=== PATIENT | male | born 1970 | race Caucasian/White ===

== ENCOUNTER 2024-06-08 08:24 | Outpatient (CLI) | payer BC, SELFPAY ==
--- NOTE | 2024-06-08 08:30 | ECG_ITS ---
Test Date: 2024-06-08 08:51:00 Measurements Intervals Alpha Rate: 64 P: 23 NH: 194 QRS: 15 QRSD: 98 T: 36 QT: 381 QTc: 394 Interpretive Statements SINUS RHYTHM WARNING: DATA QUALITY MAY AFFECT INTERPRETATION No previous ECG available for comparison Electronically Signed On 06-09-2024 13:51:24 ECCLESIASTICAL WORKER by Estefania Robins
[2024-06-08 09:45] LABS: Prothrombin Time 13.8 Seconds (11.1-14.7)
[2024-06-08 09:46] LABS: Partial Thromboplastin Time 27.6 Seconds (22.3-36.8)
--- OUTSIDE RECORDS SUMMARY | 2024-06-09 21:52 | XMS_ITS | Clinical Summary ---
Author Organization [facility] Address [address] [facility] [place] [address] Care Team Providers Care Residential Framing Carpenter Name Role Phone Aditi Stark METAL PUNCH PRESS OPERATOR-PATTERNMAKER APPRENTICE WOOD Primary Care Provider Source Comments [facility],non-owned Affiliates and Associated Physician Practices is amultiple site organization consisting of ambulatory clinics and hospital sitesin [place], [place], [place] and [place]. This disclosure is being madepursuant to the Care Everywhere program and may not contain all information available regarding this patient. Last updated 18.[facility] Allergies Active Allergy Reactions Criticality Noted Date Comments Aspirin 03/20/2011 Patient stated that he got nose bleeds from the asa. Penicillin G Proc & Benzathine 03/20/2011 Patient passed out from the shot Medications * Be aware that medications may not be up to date on this document. Alwaysverify current medications with the patient. Medication Sig Dispensed Refills Start Date End Date Status PROAIR HFA 108 (90 Base) MCG/ACT inhaler Inhale 2 (two) puffs by mouth as needed for Shortness of Breath or Wheezing 04/19/2019 Active CPAP Use as directed 14cm H20 Active lisinopril (PRINIVIL; ZESTRIL) 40 MG tablet Take 1 (one) tablet by mouth once daily Active amLODIPine (Norvasc) 10 MG tablet Take 1 (one) tablet by mouth once daily Active tirzepatide (Zepbound) 15 MG/0.5ML injectionIndications :Class 2 severe obesity due to excess calories with serious comorbidity and body mass index (BMI) of 39.0 to 39.9 in adult (HCC),Metabolic dysfunction-associat ed steatohepatitis (MASH) Inject 15 (fifteen) mg subcutaneously every 7 days 6 mL 2 04/20/2024 Active psyllium (Metamucil) CAPS capsuleIndications:C onstipation, unspecified constipation type Take 1 (one) capsule by mouth 3 times daily 90 capsule 5 04/20/2024 10/18/19 Active Additional Information Patient not taking.Reported on 06/06/2024 carvedilol (Coreg) 12.5 MG tabletIndications:Be nign essential HTN Take 1 (one) tablet by mouth 2 times daily 60 tablet 5 04/20/2024 Active Airsupra 90-80 MCG/ACT AERO Inhale 2 puffs by mouth every 4 hours as needed 05/03/2024 Active ondansetron, disintegrating, (Zofran ODT) 4 MG tablet Take 1 (one) tablet by mouth every 8 hours as needed 05/31/2023 Active traMADol (Ultram) 50 MG tablet Take 1 (one) tablet by mouth every 6 hours as needed For pain. 05/06/2024 Active tretinoin (Retin-A) 0.1 % cream Apply to affected area once daily 01/27/2024 Active tamsulosin (Flomax) 0.4 MG capsule Take 1 (one) capsule by mouth once daily 05/03/2024 Active Active Problems Problem Noted Date Diagnosed Date Class 2 severe obesity with serious comorbidity and body mass index (BMI) of 39.0 to 39.9 in adult 12/26/2021 Metabolic syndrome 12/26/2021 GRAFF (nonalcoholic steatohepatitis) 03/23/2018 Overview (06/11/2023): 02/07/20 Fibroscan CAP 372, LSM 5.4 kPa 08/12/21 FIbroscan CAP 375, LSM 6.9 kPa 06/11/23 Fibroscan CAP 326, LSM 6.4 kPa Hereditary hemochromatosis 08/17/2017 Overview (08/13/2021): Compound heterozygote Resolved Problems Problem Noted Date Diagnosed Date Resolved Date Laceration of scalp without foreign body 03/20/2011 06/11/2023 Encounters Date Type Department Care Team Description 06/06/2024 9:00 AM HOTEL SERVER Office Visit [facility] - [address] [phone] Brooke Bernard APRN-CNP Metabolic dysfunction-associated steatohepatitis (MASH) (Primary Dx); Hereditary hemochromatosis (HCC) 06/06/2024 7:18 AM HOTEL SERVER - 06/06/2024 11:59 PM HOTEL SERVER Hospital Encounter [facility] [address] [place] [phone] Brooke Bernard APRN-CNP Discharge Disposition: Home or Self Care 06/06/2024 Travel 04/20/2024 2:30 PM HOTEL SERVER Office Visit [facility] - [address] [phone] Heladio Luna III, MD Class 2 severe obesity with serious comorbidity and body mass index (BMI) of 39.0 to 39.9 in adult, unspecified obesity type (HCC) (Primary Dx); Metabolic syndrome; Class 2 severe obesity due to excess calories with serious comorbidity and body mass index (BMI) of 39.0 to 39.9 in adult (HCC); Metabolic dysfunction-associated steatohepatitis (MASH); Benign essential HTN; Alcohol use; Constipation, unspecified constipation type 04/20/2024 Travel 04/12/2024 Telephone [facility] [address] [phone] Jacob Yao, emr specialist Issue 04/11/2024 Refill [facility] [address] [phone] Heladio Luna III, MD MEDICATION REFILL from Last 3 Months Immunizations Name Administration Dates Next Due INFLUENZA VACCINE 03/23/2001 INFLUENZA VACCINE, QUADR. (F LUZONE; FLULAVAL; FLUARIX; AFLURIA QUADRIVALENT; 6MO+), 0.5 ML (IIV4) 04/03/2022,03/11/2021,04/19/2019 PNEUMOCOCCAL PPSV23 06/10/2012 TDAP (7yrs+) 10/30/2010 Family History Medical History Relation Name Comments None Known Brother Status: Alive Heart Failure Father Status: Deceas ed Diabetes Mother Status: Alive Liver Disease Mother Thyroid Disease Mother None Known Sister Status: Alive Relation Name Status Comments Brother Father Mother Sister Social History Tobacco Use Types Packs/Day Years Used Date Smoking Tobacco: Never Smokeless Tobacco: Never Tobacco Cessation:Counseling Given: Not Answered Alcohol Use Standard Drinks/Week Comments Yes 0 (1 standard drink = 0.6 oz pur e alcohol) special occasion PHQ-2 Answer Date Recorded Patient Health Questionnaire-2 Score 1 06/03/2023 Sex and Gender Information Value Date Recorded Sex Assigned at Not on file Gender Identity Not on file Sexual Orientation Not on file Last Filed Vital Signs Vital Sign Reading Time Taken Comments Blood Pressure 132/94 06/06/2024 8:45 AM HOTEL SERVER Pulse 73 06/06/2024 8:45 AM HOTEL SERVER Temperature 36.6 ??C (97.8 ??F) 06/06/2024 8:45 AM CS T Respiratory Rate 18 06/11/2023 9:48 AM HOTEL SERVER Oxygen Saturation 98% 06/06/2024 8:45 AM HOTEL SERVER Inhaled Oxygen Concentration - - Weight 124.2 kg (273 lb 12.8 oz) 06/06/2024 8:45 AM HOTEL SERVER Height 185.4 cm (6' 1 ) 06/06/2024 8:45 AM HOTEL SERVER Body Mass Index 36.12 06/06/2024 8:45 AM HOTEL SERVER Plan of Treatment Upcoming Encounters Date Type Department Care Team (Late st Contact Info) Description 10/26/2024 1:30 PM CDT Office Visit [facility] - [place] [address] [facility], [place] [phone] Irene Barron PA-C [address] [facility] DEPT [place] [phone] 04/26/2025 1:30 PM HOTEL SERVER Office Visit [facility] - [place] [address] [place] [address], [place] [phone] Heladio Luna III, MD [address] [place] [address] [address] [place] [phone] 06/05/2025 8:30 AM HOTEL SERVER Procedure visit [facility] - [place] [address] [place] [phone] 06/05/2025 9:00 AM HOTEL SERVER Office Visit [facility] - [place] [address] [place] [address], [place] [phone] Brooke Bernard, METAL PUNCH PRESS OPERATOR-PATTERNMAKER APPRENTICE WOOD [address] [place] [address] [address] DIV OF GASTROENTEROLOGY [place], [place] [phone] Health Maintenance Due Date Last Done Comments COLOGUARD (AGES 45-75) - COLON CA SCREENING 1968 COLON MONITORING 1968 COLONOSCOPY - COLON CA SCREENING 1968 CT COLONOGRAPHY - COLON CA SCREENING 1968 Colorectal Cancer Screening 1968 FIT - COLON CA SCREENING 1968 FLEX SIG - COLON CA SCREENING 1968 HIV SCREENING 1983 HEPATITIS B VACCINE (1 of 3 - 19+ 3-dose series) 1987 PNEUMOCOCCAL VACCINE 50+ (2 of 2 - PCV) 2018 06/10/2012 ZOSTER VACCINE (1 of 2) 2018 DTAP/TDAP/TD VACCINES (2 - Td or Tdap) 10/30/2020 10/30/2010 COVID-19 VACCINE ( season) 2024 03/22/2021, 06/12/2020, 05/15/2020 INFLUENZA VACCINE (#1) 2024 2, 03/11/2021, 04/19/2019, Additional history exists DEPRESSION SCREENING 05/18/2024 06/04/2023, 04/01/2023, 12/26/2021 SCREENING FOR DIABETES 11/12/2026 4, 11/13/2023, 06/18/2023, Additional history exists LIPID TESTING 11/12/2028 11/13/2023, 12/28/2021 HEPATITIS C SCREENING Completed 07/22/2016 HIB VACCINE Aged Out No longer eligi ble based on patient's age to complete this topic HPV VACCINE Aged Out No longer eligi ble based on patient's age to complete this topic MENINGOCOCCAL (Group B) VACCINE Aged Out No longer eligible based on patient's age to complete this topic MENINGOCOCCAL VACCINE Aged Out No ximena ivette eligible based on patient's age to complete this topic Goals Goal Patient Goal Type Associated Problems Recent Progress Patient-Stated? Author Medication Management General On track( 024 2:03 PM HOTEL SERVER) Jude Villegas, RN Note: Expected end date: Interventions: Take all medications as prescribed Let your doctor know right away about any changes in your medications Make sure to request a refill of your medication at least one week prior to your last dose Procedures Procedure Name Priority Date/Time Associated Diagnosis Comments US ABDOMEN LIMITED Routine 06/06/2024 8: 10 AM HOTEL SERVER GRAFF (nonalcoholic steatohepatitis) COMPREHENSIVE METABOLIC PANEL Routine 11/13/2023 7:25 AM CDT Obesity, unspecified classification, unspecified obesity type, unspecified whether serious comorbidity present LIPID PROFILE Routine 11/13/2023 7:25 AM CDT Obesity, unspecified classification, unspecified obesity type, unspecified whether serious comorbidity present HEPATITIS C ANTIBODY Routine 07/22/2016 2:45 PM HOTEL SERVER from Last 3 Months or Most Recently Relevant to Health Maintenance Results * US ABDOMEN LIMITED (06/06/2024 8:10 AM HOTEL SERVER) Anatomical Region Laterality Modality Abdomen Ultrasound 06/06/2024 8:20 AM HOTEL SERVER Impressions 06/06/2024 9:31 AM HOTEL SERVER IMPRESSION: 1.Diffuse hepatic steatosis. No notable surface nodularity to suggest cirrhosis. 2.A small hypoechoic area is redemonstrated adjacent to gallbladder, mildly increased in size up to 1.2 cm, this may represent focal fatty sparing given its location and appearance. Multiphase liver CT or MRI can be utilized for further evaluation. 3.No evidence of cholelithiasis or acute cholecystitis. 4.Mild interval dilation of the renal pelvis and some calyces likely representing mild hydronephrosis, distal obstruction is to be excluded. A CT scan of the abdomen can be helpful for further evaluation. > Dictated by Bunny Olmos MD (residential advisor). I, Peg Goldman MD have personally reviewed and interpreted this examination/study. > Interpreting Provider: Peg Goldman MD on 06/06/2024 9:31 AM Narrative 06/06/2024 9:31 AM HOTEL SERVER PROCEDURE: ??US ABDOMEN LIMITED DATE/TIME OF EXAM: ??06/06/2024 7:18 AM CLINICAL INFORMATION: None relevant/not provided if blank. Indication: K75.81: GRAFF (nonalcoholic steatohepatitis) Additional History: COMPARISON: Abdominal ultrasound 06/11/2023 FINDINGS: Limited visualization of some portions of hepatic parenchyma due to shadowing within exam limitations: The liver is increased in echogenicity, consistent with diffuse hepatic steatosis. There is smooth liver surface contour. No suspicious hepatic observations. Redemonstrated a cyst within the left hepatic lobe up to 1.8 cm. A small hypoechoic area approximately 1.2 cm is redemonstrated adjacent to the gallbladder, favored to represent fatty sparing. Color Doppler evaluation demonstrates patency of the hepatic and portal veins. No gallstones or pericholecystic fluid is seen. The gallbladder wall is normal in thickness, measuring 1 mm. Sonographic Stock's sign is negative. The common bile duct is nondilated, measuring 5 mm. No intrahepatic biliary dilatation is seen. The right kidney measures 13.9 x 6.2 x 5.3 cm. Redemonstrated a few right renal cysts up to 1.3 cm. Interval mild dilation of the renal pelvis and some calyces representing hydronephrosis, distal obstruction is to be excluded. The spleen is enlarged and measures 13.9 cm in length. The pancreas is obscured by overlying bowel gas. No ascites is present. Procedure Note Peg Goldman MD - 06/06/2024 PROCEDURE: US ABDOMEN LIMITED DATE/TIME OF EXAM: 06/06/2024 7:18 AM CLINICAL INFORMATION: None relevant/not provided if blank. Indication: K75.81: GRAFF (nonalcoholic steatohepatitis) Additional History: COMPARISON: Abdominal ultrasound 06/11/2023 FINDINGS: Limited visualization of some portions of hepatic parenchyma due to shadowing within exam limitations: The liver is increased in echogenicity, consistent with diffuse hepatic steatosis. There is smooth liver surface contour. No suspicious hepatic observations. Redemonstrated a cyst within the left hepatic lobe up to 1.8 cm. A small hypoechoic area approximately 1.2 cm is redemonstrated adjacent to the gallbladder, favored to represent fatty sparing. Color Dopplerevaluation demonstrates patency of the hepatic and portal veins. No gallstones or pericholecystic fluid is seen. The gallbladder wall is normal in thickness, measuring 1 mm. Sonographic Stock's sign isnegative. The common bile duct is nondilated, measuring 5 mm. No intrahepaticbiliary dilatation is seen. The right kidney measures 13.9 x 6.2 x 5.3 cm. Redemonstrated a fewright renal cysts up to 1.3 cm. Interval mild dilation of the renal pelvis and some calyces representing hydronephrosis, distal obstruction is to be excluded. The spleen is enlarged and measures 13.9 cm in length. The pancreas is obscured by overlying bowel gas. No ascites is present. IMPRESSION: 1.Diffuse hepatic steatosis. No notable surface nodularity to suggest cirrhosis. 2.A small hypoechoic area is redemonstrated adjacent to gallbladder,mildly increased in size up to 1.2 cm, this may represent focal fatty sparing given its location and appearance. Multiphase liver CT or MRI can be utilized for further evaluation. 3.No evidence of cholelithiasis or acute cholecystitis. 4.Mild interval dilation of the renal pelvis and some calyces likely representing mild hydronephrosis, distal obstruction is to be excluded.A CT scan of the abdomen can be helpful for further evaluation. > Dictated by Bunny Olmos MD (residential advisor). I, Peg Goldman MD have personally reviewed and interpreted this examination/study. > Interpreting Provider: Peg Goldman MD on 59:31 AM Brooke Bernard METAL PUNCH PRESS OPERATOR-PATTERNMAKER APPRENTICE WOOD US ORDERABL ES * (ABNORMAL) COMPREHENSIVE METABOLIC PANEL (11/13/2023 7:25 AM CDT) Glucose 94 65 - 99 mg/dL [facility] Comment: ? Fasting reference interval BUN 12 7 - 25 mg/dL [facility] Creatinine 0.82 0.70 - 1.30 mg/dL [facility] eGFR by Cystatin C 104 > OR = 60 mL/min/1. 73m2 [facility] BUN/Creatinine Ratio SEE NOTE: - (calc) [facility] Comment: ?? Not Reported: BUN and Creatinine are within ?? reference range. ? Sodium 142 135 - 146 mmol/L [facility] Potassium 4.0 3.5 - 5.3 mmol/L [facility] Chloride 104 98 - 110 mmol/L [facility] CO2 32 20 - 32 mmol/L [facility] Calcium 9.1 8.6 - 10.3 mg/dL [facility] Protein Total 6.7 6.1 - 8.1 g/dL [facility] Albumin 4.3 3.6 - 5.1 g/dL [facility] Globulin Total 2.4 1.9 - 3.7 g/dL (calc) [facility] Albumin/Globulin Ratio 1.8 1.0 - 2.5 (calc) [facility] Bilirubin Total 1.0 0.2 - 1.2 mg/dL [facility] Alkaline Phosphatase 64 35 - 144 U/L [facility] AST 36(H) 10 - 35 U/L [facility] ALT 65(H) 9 - 46 U/L [facility] Comment: Test Performed at: [facility] [address] ??[id number] CHELE CANO MD Blood BLOOD SPECIMEN / Unknown 11/13/2023 7:25 AM CDT 11/13/2023 7:25 AM CDT Heladio Luna III, MD LAB - CHEMISTRY O RDERABLES [facility] [address] [place] [address] * (ABNORMAL) LIPID PROFILE (11/13/2023 7:25 AM CDT) Cholesterol 148 <200 mg/dL [facility] HDL Cholesterol 39(L) > OR = 40 mg/dL [facility] Triglycerides 153(H) <150 mg/dL [facility] LDL Calculated 84 mg/dL (calc) [facility] Comment: Reference range: <100 Desirable range <100 mg/dL for primary prevention; ?? <70 mg/dL for patients with CHD or diabetic patients with > or = 2 CHD risk factors. LDL-C is now calculated using the Humberto calculation, which is a validated novel method providing better accuracy than the Friedewald equation in the estimation of LDL-C. Sherman REA et al. VIRGIL. 2013;310(19): 5350-2235 (http://education.[employer]Heart Genetics/faq/UEV652) CHOL/HDLC RATIO 3.8 <5.0 (calc) [facility] Non HDL Cholesterol 109 <130 mg/dL (calc) [facility] Comment: For patients with diabetes plus 1 major ASCVD risk factor, treating to a non-HDL-C goal of <100 mg/dL (LDL-C of <70 mg/dL) is considered a therapeutic option. Test Performed at: [facility] [address] [place] [address] ??[phone] CHELE CANO MD Blood BLOOD SPECIMEN / Unknown 11/13/2023 7:25 AM CDT 11/13/2023 7:25 AM CDT Heladio Luna III, MD LAB - CHEMISTRY O RDERABLES [facility] [address] [place] [address] * HEPATITIS C ANTIBODY (07/22/2016 2:45 PM HOTEL SERVER) Pathologist [facility] Hepatitis C Antibody Non-react [facility] Comment: Hepatitis C Antibody screen indicates no serologic evidence of past or current infection with Hepatitis C Virus. Patients with unexplained liver disease who are immunocompromised or suspected of having acute Hepatitis C infection may benefit from Nucleic Acid Test (FABY) for Hepatitis C Viral RNA to confirm Hepatitis C status. Blood specimen (specimen) BLOOD SPECIMEN / Unknown 07/22/2016 2:45 PM HOTEL SERVER 07/22/2016 2:54 PM HOTEL SERVER Arik Lipscomb MD LAB - CHEMISTRY [facility] [place] Organization Address City/State/ZIP Co de Phone Number [address] [phone] from Last 3 Months or Most Recently Relevant to Health Maintenance Care Teams Residential Framing Carpenter Relationship Specialty Start Date End Date Aditi Stark, METAL PUNCH PRESS OPERATOR-PATTERNMAKER APPRENTICE WOOD [address] [facility], [address] [place] [address] PCP - General Nurse Practitioner 12/08/22
--- OUTSIDE RECORDS SUMMARY | 2024-06-09 21:53 | XMS_ITS | Encounter Summary ---
Author Organization [facility] Address [facility] [facility] [place] [address] Care Team Providers Care Boring And Filling Machine Operator Name Role Phone Aditi Stark PHYSICAL THERAPIST-COATER SLATE Primary Care Provider Reason for Visit * Reason Onset Date Comments MEDICATION REFILL 02/29/2024 Encounter Details Date Type Department Care Team (Late st Contact Info) Description 02/29/2024 Refill [facility] - [address], [place] [phone] Heladio Luna III, MD [address] [place] [phone] MEDICATION REFILL Social History Tobacco Use Types Packs/Day Years Used Date Smoking Tobacco: Never Smokeless Tobacco: Never Alcohol Use Standard Drinks/Week Comments Yes 0 (1 standard drink = 0.6 oz pur e alcohol) special occassion PHQ-2 Answer Date Recorded Patient Health Questionnaire-2 Score 1 06/03/2023 Sex and Gender Information Value Date Recorded Sex Assigned at Not on file Gender Identity Not on file Sexual Orientation Not on file documented as of this encounter Plan of Treatment Upcoming Encounters Date Type Department Care Team (Late st Contact Info) Description 10/26/2024 1:30 PM CDT Office Visit [facility] - [place] [address] [place] [phone] Irene Barron PA-C [address] [facility] DEPT [place] [phone] 04/26/2025 1:30 PM PROSTHETIC MAKEUP DESIGNER Office Visit [facility] - [address] [phone] Heladio Luna III, MD [address] [place] [address] [address] [place] [phone] 06/05/2025 8:30 AM PROSTHETIC MAKEUP DESIGNER Procedure visit [facility] - [address] [phone] 06/05/2025 9:00 AM PROSTHETIC MAKEUP DESIGNER Office Visit [facility] - [address] [phone] Brooke Bernard, PHYSICAL THERAPIST-COATER SLATE [address] [place] [address] [address] DIV OF GASTROENTEROLOGY [place], [place] [phone] documented as of this encounter Goals Goal Patient Goal Type Associated Problems Recent Progress Patient-Stated? Author Medication Management General On track( 024 2:03 PM PROSTHETIC MAKEUP DESIGNER) Jude Villegas, RN Note: Expected end date: Interventions: Take all medications as prescribed Let your doctor know right away about any changes in your medications Make sure to request a refill of your medication at least one week prior to your last dose documented as of this encounter Visit Diagnoses Not on filedocumented in this encounter Care Teams Boring And Filling Machine Operator Relationship Specialty Start Date End Date Aditi Stark, PHYSICAL THERAPIST-COATER SLATE [address] [facility], [address] [place] [address] PCP - General Nurse Practitioner 12/08/22 documented as of this encounter
--- OUTSIDE RECORDS SUMMARY | 2024-06-09 21:53 | XMS_ITS | Clinical Summary ---
Author Organization [facility] Address [address] [place] [address] [place] [address] Care Team Providers Care Geophysical Computer Name Role Phone Aditi Stark [facility] Primary Care Provider + Allergies Active Allergy Reactions Criticality Noted Date Comments Aspirin Other (see comment) 03/20/2011 Patient stated that he got nose bleeds from the asa. Penicillin G Unknown 03/20/2011 Patient passed out from the shot Medications CPAP MACHINE Active tirzepatide (ZEPBOUND) 15 MG/0.5ML injection Inject 15 mg into the skin every 7 days. 4 Active ondansetron (ZOFRAN) 4 MG tablet Take 1 tablet (4 mg total) by mouth every 8 (eight) hours as needed for Nausea. 20 tablet 4 Active psyllium 0.52 g capsule Take 1 capsule (520 mg total) by mouth. 4 10/18/19 25 Active tamsulosin (FLOMAX) 0.4 MG CapIndications:Re nal calculi Take 1 capsule (0.4 mg total) by mouth daily. 30 capsule 1 4 Active Albuterol-Budeson fauzia (AIRSUPRA) 90-80 MCG/ACT AerosolIndication s:Mild persistent asthma without complication (HHS/HCC) Inhale 2 puffs into the lungs every 4 (four) hours as needed. 32.1 g 1 4 Active amLODIPine (NORVASC) 10 MG tabletIndications :Essential hypertension Take 1 tablet (10 mg total) by mouth daily. 90 tablet 3 4 Active carvedilol (COREG) 12.5 MG tabletIndications :Essential hypertension Take 1 tablet (12.5 mg total) by mouth 2 (two) times daily. 60 tablet 3 4 Active lisinopril (PRINIVIL) 40 MG tabletIndications :Essential hypertension Take 1 tablet (40 mg total) by mouth daily. 90 tablet 3 4 Active traMADol (ULTRAM) 50 MG tabletIndications :Acute Pain < 7 Day Supply Take 1 tablet (50 mg total) by mouth every 6 (six) hours as needed for Pain. Indications: Acute Pain < 7 Day Supply 28 tablet 4 05/13/20 24 Active Problems Problem Noted Date Diagnosed Date SEVERO on CPAP 01/05/2019 GRAFF (nonalcoholic steatohepatitis) 03/23/2018 Hereditary hemochromatosis 08/17/2017 Fatty (change of) liver, not elsewhere classifie d 07/22/2016 Asthma (HHS/HCC) 01/23/2014 Overview (05/05/2018): has inhaler no symptoms Obesity (BMI 30.0-34.9) 01/23/2014 Overview (05/05/2018): needs to lose snoring hs oximetry Essential (primary) hypertension 01/23/2014 Resolved Problems Problem Noted Date Diagnosed Date Resolved Date Screen for colon cancer 05/01/202304/17 Screen for colon cancer 05/01/202306/18 Hemorrhoids 05/13/2017 05/05/2018 Encounters Date Type Department Care Team Description 06/06/2024 Scan [facility] INFO SRVCS Scanned, Doc Med Group 05/24/2024 Telephone [facility] [address] [phone] Aditi Stark, NUCLEAR TECHNICIAN-BC Results 05/23/2024 7:39 AM MOLDED GOODS INSPECTOR TRIMMER - 05/23/2024 11:59 PM [facility] Hospital Encounter [facility] [address] [address] Aditi Stark FNP-BC Discharge Disposition: Home or Self Care (Routine Discharge) 05/23/2024 Travel 05/05/2024 Scan HEALTH INFO SRVCS Scanned, Doc Med Group 05/05/[address] [phone] Aditi Stark FNP-BC Medication Request 05/03/2024 11:20 AM MOLDED GOODS INSPECTOR TRIMMER Office Visit [address] [phone] Aditi Stark FNP-BC Follow Up (ER) 05/03/[address] [phone] Aditi Stark FNP-BC Orders 05/03/2024 Travel 04/30/2024 9:16 AM MOLDED GOODS INSPECTOR TRIMMER - 04/30/2024 11:08 AM [facility] Emergency [facility] Emergency Room [address] [place] [address] Yuridia Marshall MD Flank Pain Discharge Disposition: Home or Self Care (Routine Discharge) 04/18/2024 7:40 AM MOLDED GOODS INSPECTOR TRIMMER Office Visit [address] [phone] Aditi Stark FNP-BC Physical (Annual ) 04/18/2024 Travel from Last 3 Months Immunizations Name Administration Dates Next Due Fluzone 6 Months+ Quad (0.5 mL Prefilled Syringe) 04/03/2022,03/11/2021,04/19/2019 Influenza Adult (Generic) 03/23/2001 MODERNA COVID-19 (12+) MRNA, LNP-S, PF, 100 MCG/ 0.5 ML DOSE 06/12/2020,05/15/2020 Pneumococcal (Pneumovax 23) 06/10/2012 Tdap (Generic) 10/30/2010 Family History Medical History Relation Comments Heart Disease Daughter nephrolithiasis Father Asthma Maternal Grandfather Cancer Maternal Grandfather Diabetes Mother Hypertension Mother None Sister 2 Relation Status Comments Brother Alive Daughter Alive Father Maternal Grandfather Mother Alive Sister 1 Alive Sister 2 Son Alive Social History Tobacco Use Types Packs/Day Years Used Date Smoking Tobacco: Never Smokeless Tobacco: Never Tobacco Cessation:Counseling Given: No Alcohol Use Standard Drinks/Week Comments Yes 3.3 (1 standard drink = 0.6 oz p ure alcohol) PHQ-2 Answer Date Recorded Patient Health Questionnaire-2 Score 0 05/03/2024 Sex and Gender Information Value Date Recorded Sex Assigned at Not on file Legal Sex Male 7:57 PM CDT Gender Identity Male 08/12/2021 1:26 PM CDT Sexual Orientation Straight 08/12/2021 1: 26 PM CDT Last Filed Vital Signs Vital Sign Reading Time Taken Comments Blood Pressure 129/83 05/03/2024 11:32 AM MOLDED GOODS INSPECTOR TRIMMER Pulse 67 05/03/2024 11:05 AM MOLDED GOODS INSPECTOR TRIMMER Temperature 36.3 ??C (97.4 ??F) 05/03/2024 1 1:05 AM MOLDED GOODS INSPECTOR TRIMMER Respiratory Rate 18 05/03/2024 11:0 5 AM MOLDED GOODS INSPECTOR TRIMMER Oxygen Saturation 97% 05/03/2024 11: 05 AM MOLDED GOODS INSPECTOR TRIMMER Inhaled Oxygen Concentration - - Weight 126.6 kg (279 lb 3.2 oz) 024 11:05 AM MOLDED GOODS INSPECTOR TRIMMER Height 180.3 cm (5' 11 ) 05/03/2024 11: 05 AM MOLDED GOODS INSPECTOR TRIMMER Body Mass Index 38.94 05/03/2024 11:05 AM MOLDED GOODS INSPECTOR TRIMMER Plan of Treatment Upcoming Encounters Date Type Department Care Team (Late st Contact Info) Description 10/20/2024 7:20 AM CDT Office Visit [facility] [address] [place] [phone] Aditi Stark, [facility] [address], [address] [place], [place] [id number] 05/03/2025 8:00 AM MOLDED GOODS INSPECTOR TRIMMER Appointment [facility] [address] [place] [address] Aditi Stark, [facility] [address] [facility] [address] [place], [place] [id number] Health Maintenance Due Date Last Done Comments Hepatitis B Vaccines (1 of 3 - 19+ 3-dose series) 1987 Pneumococcal Vaccine: Pediatrics (0 to 5 Years) and At-Risk Patients (6 to 64 Years) (2 of 2 - PCV) 06/10/2013 06/10/2012 Zoster Vaccines (1 of 2) 2018 DTaP, Tdap and Td Vaccines (2 - Td or Tdap) 10/30/2020 10/30/2010 COVID-19 Vaccine ( - season) 2024 03/22/2021, 06/12/2020, 05/15/2020 Influenza Adult (#1) 2024 04/03/2022, 03/11/2021, 04/19/2019, Additional history exists Annual Physical 04/20/2024 04/20/2023, 10/17, 05/05/2018 PHQ-2 (Physician [place]) 05/03/2025 05/03/2024 Colorectal Cancer Screening Colonoscopy (10 Years) 07/03/2033 07/03/2023, 06/17/2018 Hepatitis C Completed 07/22/2016, 09/04/2009 Meningococcal Vaccine Aged Out No ximena ivette eligible based on patient's age to complete this topic RSV Immunizations Under 20 Months Aged Out No longer eligible based on patient's age to complete this topic Medical Devices Implanted Type Area Advertising Sales Manager Device Identifier Shelf Expiration Date Model / Serial / Lot Mesh Mesh Right: Groin Procedures Procedure Name Priority Date/Time Associated Diagnosis Comments MRI ABD WWO CON Routine 05/23/2024 8:54 AM MOLDED GOODS INSPECTOR TRIMMER Renal lesion XR ABD KUB Routine 05/23/2024 7:58 AM MOLDED GOODS INSPECTOR TRIMMER Calculus of ureter HC URINALYSIS AUTO W/O MICRO STAT 04/30/2024 10:10 AM MOLDED GOODS INSPECTOR TRIMMER CT ABD+PEL KIDNEY STONE STAT 04/30/2024 10:09 AM MOLDED GOODS INSPECTOR TRIMMER CBC W/DIFF AUTOMATED STAT 04/30/2024 9:41 AM MOLDED GOODS INSPECTOR TRIMMER LIPASE STAT 04/30/2024 9:32 AM MOLDED GOODS INSPECTOR TRIMMER COMPREHENSIVE METABOLIC PANEL STAT 04/30/2024 9:32 AM MOLDED GOODS INSPECTOR TRIMMER COLONOSCOPY/EGD GENERIC (SCAN ORDER) Routine 06/17/2018 HEPATITIS C ANTIBODY Routine 09/04/2009 6:29 AM CDT from Last 3 Months or Most Recently Relevant to Health Maintenance Results * MRI ABD WWO CON (05/23/2024 8:54 AM MOLDED GOODS INSPECTOR TRIMMER) Anatomical Region Laterality Modality Abdomen Magnetic Resonan ce 05/23/2024 2:30 PM MOLDED GOODS INSPECTOR TRIMMER Impressions 05/23/2024 2:49 PM MOLDED GOODS INSPECTOR TRIMMER IMPRESSION:===== 1. Small bilateral renal cysts without suspicious features. No follow-up required. 2. Persistent right hydronephrosis with obstructing calculus of the right proximal ureter. 3. Mild hepatomegaly with diffuse fatty steatosis. 4. Multiple hepatic cysts. 5. Small hiatal hernia. 6. Diverticulosis of the colon. Referred By: ADIIT STARK Interpreted By: Nahun Buck MD, 05/23/2024 2:30 PM Narrative 05/23/2024 2:49 PM MOLDED GOODS INSPECTOR TRIMMER [address] [address] EXAMINATION: MRI abdomen with and without contrast EXAM DATE/TIME: 05/23/2024 7:58 AM REASON FOR EXAM: ??Indeterminate density right renal lesion ?? COMPARISON: Prior CT 04/30/2024 TECHNIQUE: ??Multiplanar multisequence MRI of the abdomen with and without contrast, 20 mL Dotarem intravenously FINDINGS: Numerous bilateral renal lesions compatible with cysts. This includes multiple hyperdense/proteinaceous cysts. Most of these are very small, largest measures only 11 mm in the right kidney inferior pole. No suspicious features on this exam. No enhancing renal lesions. Persistent mild right hydronephrosis with obstructing calculus of the right proximal ureter, better shown on prior CT. Hepatomegaly noted with right hepatic lobe measuring 23 cm in length. Diffuse fatty infiltration of the liver. There are numerous scattered hepatic cysts. No enhancing liver lesions. The gallbladder, spleen, pancreas, adrenal glands, aorta and IVC are unremarkable. Colonic diverticulosis. Small hiatal hernia. No suspicious adenopathy. Degenerative changes and minimal scoliosis in the visualized spine. Visualized bowel is otherwise grossly unremarkable. Minimal pleural effusions. ===== Procedure Nahun Ibanez MD - 05/23/2024 [facility] [address] [place] [address] EXAMINATION: MRI abdomen with and without contrast EXAM DATE/TIME: 05/23/2024 7:58 AM REASON FOR EXAM: Indeterminate density right renal lesion COMPARISON: Prior CT 04/30/2024 TECHNIQUE: Multiplanar multisequence MRI of the abdomen with and withoutcontrast, 20 mL Dotarem intravenously FINDINGS: Numerous bilateral renal lesions compatible with cysts. Thisincludes multiple hyperdense/proteinaceous cysts. Most of these are verysmall, largest measures only 11 mm in the right kidney inferior pole. Nosuspicious features on this exam. No enhancing renal lesions. Persistentmild right hydronephrosis with obstructing calculus of the right proximalureter, better shown on prior CT. Hepatomegaly noted with right hepatic lobe measuring 23 cm in length.Diffuse fatty infiltration of the liver. There are numerous scatteredhepatic cysts. No enhancing liver lesions. The gallbladder, spleen,pancreas, adrenal glands, aorta and IVC are unremarkable. Colonicdiverticulosis. Small hiatal hernia. No suspicious adenopathy.Degenerative changes and minimal scoliosis in the visualized spine.Visualized bowel is otherwise grossly unremarkable. Minimal pleuraleffusions. ===== IMPRESSION:===== 1. Small bilateral renal cysts without suspicious features. No follow- uprequired. 2. Persistent right hydronephrosis with obstructing calculus of the rightproximal ureter. 3. Mild hepatomegaly with diffuse fatty steatosis. 4. Multiple hepatic cysts. 5. Small hiatal hernia. 6. Diverticulosis of the colon. Referred By: ADITI STARK Interpreted By: Nahun Buck MD, 05/23/2024 2:30 PM us Aditi Perkins Mi NUCLEAR TECHNICIAN-BC MRI Final Re sult * XR ABD KUB (05/23/2024 7:58 AM MOLDED GOODS INSPECTOR TRIMMER) Anatomical Region Laterality Modality Abdomen Radiographic Almita ging 05/23/2024 2:16 PM MOLDED GOODS INSPECTOR TRIMMER Impressions 05/23/2024 2:22 PM MOLDED GOODS INSPECTOR TRIMMER Impression: ??Redemonstrated right UPJ calculus in stable position allowing for the different modalities. Referred By: ADITI STARK Interpreted By: Quincy Valverde MD, 05/23/2024 2:16 PM Narrative 05/23/2024 2:22 PM [place] [place] [address] Examination: Single view abdomen Exam time: ??0737 hours. Clinical history: ??Follow-up of urolithiasis. Technique: AP ??supine view. Comparison: ??08/14/2008; CT of the abdomen and pelvis, 04/30/2024. Findings: ??The visualized lungs are clear. ??The bowel gas pattern is unremarkable. ??No organomegaly or mass is identified. ??Approximately 5 mm right UPJ calculus present on CT projects just caudal to the transverse process of L3, not appreciably changed in position allowing for the different modalities. ??No other significant calcification is identified. ??The bony structures are unremarkable for age. Procedure Note Quincy Valverde MD - 05/23/2024 [place] [address] Examination: Single view abdomen Exam time: 0737 hours. Clinical history: Follow-up of urolithiasis. Technique: AP supine view. Comparison: 08/14/2008; CT of the abdomen and pelvis, 04/30/2024. Findings: The visualized lungs are clear. The bowel gas pattern isunremarkable. No organomegaly or mass is identified. Approximately 5 mmright UPJ calculus present on CT projects just caudal to the transverseprocess of L3, not appreciably changed in position allowing for thedifferent modalities. No other significant calcification is identified.The bony structures are unremarkable for age. Impression: Redemonstrated right UPJ calculus in stable position allowingfor the different modalities. Referred By: ADITI STARK Interpreted By: Quincy Valverde MD, 05/23/2024 2:16 PM us Elisabeth Patiño NP GENERAL IMAGING Final Result * (ABNORMAL) URINALYSIS (04/30/2024 10:10 AM MOLDED GOODS INSPECTOR TRIMMER) COLOR (U) JADON 04/30/2024 10:51 AM [facility] TRANSPARENCY CLOUDY 04/30/2024 10:51 AM [facility] SPECIFIC GRAVITY (U) 1.025 1.002 - 1.030 04/30/2024 10:51 AM [facility] U PH 6.0 4.5 - 8.0 04/30/2024 10:51 AM [facility] LEUKOCYTES (U) NEGATIVE NEGATIVE 04/30/2024 10:51 AM [facility] NITRITES NEGATIVE NEGATIVE 04/30/2024 10:51 AM [facility] PROTEIN RANDOM (U) 2+(A) NEGATIVE 04/30/2024 10:51 AM [facility] GLUCOSE (U) NEGATIVE NEGATIVE 04/30/2024 10:51 AM [facility] KETONES MG/DL (U) NEGATIVE NEGATIVE 04/30/2024 10:51 AM [facility] UROBILINOGEN NORMAL NORMAL EU/DL 04/30/2024 10:51 AM [facility] BILIRUBIN (U) NEGATIVE NEGATIVE 04/30/2024 10:51 AM MOLDED GOODS INSPECTOR TRIMMER [facility] BLOOD (U) 5+(A) NEGATIVE 04/30/2024 10:51 AM MOLDED GOODS INSPECTOR TRIMMER [facility] WBC/HPF 0-5 /HPF 04/30/2024 10:51 AM MOLDED GOODS INSPECTOR TRIMMER [facility] RBC/HPF 100-200 /HPF 04/30/2024 10:51 AM MOLDED GOODS INSPECTOR TRIMMER [facility] EPI/HPF 0-5 /HPF 04/30/2024 10:51 AM [facility] BACTERIA (U) 1+ /HPF 04/30/2024 10:51 AM MOLDED GOODS INSPECTOR TRIMMER [facility] URINE SPECIMEN OBTAINED BY CLEAN CATCH PROCEDURE / Unknown 04/30/2024 10:10 AM MOLDED GOODS INSPECTOR TRIMMER us Yuridia Marshall MD URINE ORDERABLES Final Res ult [facility] [address] [place] [address], [place] [phone] * CT ABD+PEL KIDNEY STONE (04/30/2024 10:09 AM MOLDED GOODS INSPECTOR TRIMMER) Anatomical Region Laterality Modality Abdomen Computed Tomogra phy 04/30/2024 10:1 2 AM MOLDED GOODS INSPECTOR TRIMMER Impressions 04/30/2024 10:19 AM MOLDED GOODS INSPECTOR TRIMMER IMPRESSION: 1. Right-sided hydronephrosis secondary to an obstructing 5 mm calculus at the right UPJ. Mild right-sided perinephric stranding. 2. Indeterminate density right renal lesion. Consider follow-up evaluation with renal protocol MRI without/with contrast. 3. Suggestion of circumferential thickening of the distal thoracic esophagus. Findings could reflect gastritis but could consider follow-up upper endoscopy. 4. Diverticulosis. 5. Atherosclerosis. 6. Hepatic steatosis. 7. Sub-6 mm left lower lobe nodule. Could consider follow-up chest CT in 12 months. 8. Please see above for additional chronic, incidental, and nonemergent findings elsewhere. Ordered By: YURIDIA MARSHALL Interpreted By: Saturnino Heath MD, 04/30/2024 10:12 AM Narrative 04/30/2024 10:19 AM MOLDED GOODS INSPECTOR TRIMMER [facility] [address] [place] [address] DATE: 04/30/2024 9:34 AM EXAMINATION: CT Abdomen and Pelvis without contrast CLINICAL HISTORY: Right flank pain COMPARISON: 05/31/2023 TECHNIQUE: Computed tomography of the abdomen and pelvis was obtained without administration of intravenous contrast according to routine protocol. ?? A dose lowering technique was used for this procedure, which may include, but is not limited to, dose reduction technique, automated exposure control, the use of iterative reconstruction, and ALARA (As Low As Reasonably Achievable) / Image Gently techniques. FINDINGS: Imaged portions of the lower chest reveal thickening of the distal thoracic esophagus. Bibasilar atelectasis and scarring. Borderline heart size. Stable sub-6 mm nodule in the left lower lobe. There is mild right-sided hydronephrosis secondary to an obstructing 5 mm calculus at the right UPJ. Mild right-sided perinephric stranding. No other radiodense calculi seen in the left kidney, along the remainder of the ureters, or within the bladder. No left-sided hydronephrosis or hydroureter. Small indeterminate density lesion along the posterior aspect of the right kidney (axial image 105 of 258). Hepatic steatosis. Scattered renal cysts. Gallbladder and adrenal glands are unremarkable. Granulomatous calcifications in the spleen. Pancreatic parenchyma not well evaluated without intravenous contrast. Few scattered atherosclerotic calcifications noted along the abdominal aorta. No bulky mesenteric or retroperitoneal lymphadenopathy. Stomach and small bowel loops are nondilated. Normal appendix. Scattered solid feces in the colon. Scattered colonic diverticula. No findings of bowel obstruction. No free fluid or free air in the abdomen. Sigmoid diverticulosis. Mildly enlarged prostate with interspersed calcifications. Bladder underdistended. Pelvic vascular calcifications. No pelvic ascites. No bulky pelvic or inguinal lymphadenopathy. Degenerative changes noted in the spine. Procedure Note Saturnino Heath MD - 04/30/2024 [facility] [address] [place] [address] DATE: 04/30/2024 9:34 AM EXAMINATION: CT Abdomen and Pelvis without contrast CLINICAL HISTORY: Right flank pain COMPARISON: 05/31/2023 TECHNIQUE: Computed tomography of the abdomen and pelvis was obtainedwithout administration of intravenous contrast according to routineprotocol. A dose lowering technique was used for this procedure, which may include,but is not limited to, dose reduction technique, automated exposurecontrol, the use of iterative reconstruction, and ALARA (As Low AsReasonably Achievable) / Image Gently techniques. FINDINGS: Imaged portions of the lower chest reveal thickening of the distalthoracic esophagus. Bibasilar atelectasis and scarring. Borderline heartsize. Stable sub-6 mm nodule in the left lower lobe. There is mild right-sided hydronephrosis secondary to an obstructing 5 mmcalculus at the right UPJ. Mild right-sided perinephric stranding. Noother radiodense calculi seen in the left kidney, along the remainder ofthe ureters, or within the bladder. No left-sided hydronephrosis orhydroureter. Small indeterminate density lesion along the posterior aspectof the right kidney (axial image 105 of 258). Hepatic steatosis. Scattered renal cysts. Gallbladder and adrenal glandsare unremarkable. Granulomatous calcifications in the spleen. Pancreaticparenchyma not well evaluated without intravenous contrast. Few scatteredatherosclerotic calcifications noted along the abdominal aorta. No bulkymesenteric or retroperitoneal lymphadenopathy. Stomach and small bowel loops are nondilated. Normal appendix. Scatteredsolid feces in the colon. Scattered colonic diverticula. No findings ofbowel obstruction. No free fluid or free air in the abdomen. Sigmoid diverticulosis. Mildly enlarged prostate with interspersedcalcifications. Bladder underdistended. Pelvic vascular calcifications. Nopelvic ascites. No bulky pelvic or inguinal lymphadenopathy. Degenerative changes noted in the spine. IMPRESSION: 1. Right-sided hydronephrosis secondary to an obstructing 5 mm calculus atthe right UPJ. Mild right-sided perinephric stranding. 2. Indeterminate density right renal lesion. Consider follow-up evaluationwith renal protocol MRI without/with contrast. 3. Suggestion of circumferential thickening of the distal thoracicesophagus. Findings could reflect gastritis but could consider follow-upupper endoscopy. 4. Diverticulosis. 5. Atherosclerosis. 6. Hepatic steatosis. 7. Sub-6 mm left lower lobe nodule. Could consider follow-up chest CT in12 months. 8. Please see above for additional chronic, incidental, and nonemergentfindings elsewhere. Ordered By: YURIDIA MARSHALL Interpreted By: Saturnino Heath MD, 04/30/2024 10:12 AM us Yuridia Marshall MD CT Final Resu lt * (ABNORMAL) CBC W/DIFF AUTOMATED (04/30/2024 9:41 AM MOLDED GOODS INSPECTOR TRIMMER) WBC 10.02 4.50 - 11.00 x10'3/uL 04/30/2024 9:45 AM MOLDED GOODS INSPECTOR TRIMMER [facility] RBC 5.16 4.70 - 6.10 x10'6/uL 04/30/2024 9:45 AM [facility] HGB 15.7 14.0 - 18.0 G/DL 04/30/2024 9:45 AM [facility] HCT 45.0 43.0 - 54.0 % 04/30/2024 9:45 AM [facility] MCV 87.2 80.0 - 94.0 FL 04/30/2024 9:45 AM [facility] MCH 30.4 27.0 - 31.0 PG 04/30/2024 9:45 AM [facility] MCHC 34.9 32.0 - 36.0 G/DL 04/30/2024 9:45 AM [facility] RDW 11.8 11.5 - 14.5 % 04/30/2024 9:45 AM [facility] PLT 200 130 - 400 x10'3/uL 04/30/2024 9:45 AM [facility] MPV 9.7 9.3 - 12.2 FL 04/30/2024 9:45 AM MOLDED GOODS INSPECTOR TRIMMER [facility] CBC COMMENT AUTOMATED RBC MORPHOLOGY AND PLATELET EVALUATION NORMAL 04/30/2024 9:45 AM [facility] NEUTROPHILS % 71.6 % 04/30/2024 9:45 AM [facility] LYMPHOCYTES % 13.5 % 04/30/2024 9:45 AM [facility] MONOCYTES % 12.1 % 04/30/2024 9:45 AM [facility] EOSINOPHILS 1.7 % 04/30/2024 9:45 AM [facility] BASOPHILS 0.5 % 04/30/2024 9:45 AM [facility] IMMATURE GRANS % 0.6 % 04/30/20 9:45 AM [facility] NRBC % 0.0 % 04/30/2024 9:45 AM [facility] ABS. NEUTROPHILS TOTAL 7.18 1.80 - 7.70 x10'3/uL 04/30/2024 9:45 AM [facility] ABS. LYMPHOCYTES 1.35 1.00 - 4.80 x10'3/uL 04/30/2024 9:45 AM [facility] ABS. MONOCYTES 1.21(H) 0.30 - 0.82 x10'3/uL 04/30/2024 9:45 AM [facility] ABS. EOSINOPHILS 0.17 0.04 - 0.54 x10'3/uL 04/30/2024 9:45 AM [facility] ABS. BASOPHILS 0.05 0.01 - 0.08 x10'3/uL 04/30/2024 9:45 AM [facility] ABS. IMMATURE GRANULOCYTES 0.06 0.00 - 0.49 x10'3/uL 04/30/2024 9:45 AM [facility] ABS. NUCLEATED RBC'S 0.00 0.00 - 0.01 x10'3/uL 04/30/2024 9:45 AM [facility] 04/30/2024 9:41 AM MOLDED GOODS INSPECTOR TRIMMER us Yuridia Marshall MD LABORATORY Final Resu lt [facility] [address] [place] [address], [place] [phone] * (ABNORMAL) COMPREHENSIVE METABOLIC PANEL (04/30/2024 9:32 AM MOLDED GOODS INSPECTOR TRIMMER) GLUCOSE 110(H) 70 - 99 MG/DL 04/30/2024 10:03 AM [facility] HOSPITAL LAB BUN 14 7 - 18 MG/DL 04/30/2024 10:03 AM [facility] CREATININE S/P/B 1.24 0.7 - 1.3 MG/DL 04/30/2024 10:03 AM [facility] SODIUM S/P/B 142 136 - 145 MMOL/L 04/30/2024 10:03 AM [facility] POTASSIUM S/P/B 3.6 3.5 - 5.1 MMOL/L 04/30/2024 10:03 AM [facility] CHLORIDE S/P/B 102 100 - 108 MMOL/L 04/30/2024 10:03 AM [facility] CO2 30.3 21 - 32 MMOL/L 04/30/2024 10:03 AM [facility] CALCIUM S/P/B 9.1 8.5 - 10.1 MG/DL 04/30/2024 10:03 AM [facility] BILIRUBIN TOTAL S/P/B 0.7 0.2 - 1.2 MG/DL 04/30/2024 10:03 AM [facility] Comment: THIS ASSAY IS NOT RECOMMENDED FOR PATIENTS UNDERGOING TREATMENT WITH ELTROMBOPAG DUE TO THE POTENTIAL FOR FALSELY ELEVATED RESULTS. TOTAL PROTEIN S/P/B 7.7 6.4 - 8.2 G/DL 04/30/2024 10:03 AM [facility] ALBUMIN S/P/B 4.1 3.4 - 5.0 G/DL 04/30/2024 10:03 AM [facility] AST 33 15 - 37 U/L 04/30/2024 10:03 AM [facility] ALT 71(H) 16 - 60 U/L 04/30/2024 10:03 AM [facility] ALKALINE PHOSPHATASE S/P/B 72 50 - 136 U/L 04/30/2024 10:03 AM [facility] ANION GAP 9.7 5 - 15 MMOL/L 04/30/2024 10:03 AM [facility] BUN CREATININE RATIO 11.3 6 - 26 04/30/2024 10:03 AM [facility] A/G RATIO 1.1 1.0 - 2.0 RATIO 04/30/2024 10:03 AM [facility] GFR ESTIMATE 69(L) >90 ML/MIN/1.7 3 M2 04/30/2024 10:03 AM [facility] Comment: NOTE: eGFR is not calculated for patients <18 years of age. This is an estimated GFR calculation using the new CKD EPI creatinine equation without race and so does not require a correction factor for race. This estimated GFR should not be used for calculating drug doses. 04/30/2024 9:32 AM MOLDED GOODS INSPECTOR TRIMMER us Yuridia Marshall MD LABORATORY Final Resu lt [facility] [address] [place] [address], [place] [phone] * LIPASE (04/30/2024 9:32 AM MOLDED GOODS INSPECTOR TRIMMER) Pathologist [facility] LIPASE 55 16 - 77 UNITS/L 04/30/2024 10:03 AM MOLDED GOODS INSPECTOR TRIMMER [facility] 04/30/2024 9:32 AM MOLDED GOODS INSPECTOR TRIMMER Yuridia Marshall MD LABORATORY Final Resu lt [facility] [address] [place] [address], [place] [phone] * COLONOSCOPY/EGD (06/17/2018) Documents Scanned SCANNING Final Result * HEPATITIS C ANTIBODY (09/04/2009 6:29 AM CDT) Pathologist [facility] HEPATITIS C AB NON-REACTI VE (NR) [facility] TO EPIC CONVERSION 09/04/2009 6:29 AM CDT 09/04/2009 6:29 AM CDT Narrative [facility] TO EPIC CONVERSION - 09/04/2009 6:29 AM CDT [AUTO]: This test was reviewed. Ericka Savage MD LABORATORY Final Res ult [facility] TO EPIC CONVERSION from Last 3 Months or Most Recently Relevant to Health Maintenance Insurance Care Teams Geophysical Computer Relationship Specialty Start Date End Date Aditi Stark, NUCLEAR TECHNICIAN- [address] [facility], [address] [place] [address] PCP - General NURSE PRACTITIONER 05/14/20
--- OUTSIDE RECORDS SUMMARY | 2024-06-09 21:53 | XMS_ITS | Referral Summary ---
Author Organization [address] Address [address] [place] [phone] Care Team Providers Care Premium Cancellation Clerk Name Role Phone Fahad Stanley MD Primary Care Provider Encounters Date Type Department Care Team Description 05/05/2024 Telephone [facility] Pulmonary [address] [phone] Lex Thompson MD Orders Only 05/05/2024 3:00 PM TALENT ACQUISITION PROGRAM MANAGER Office Visit [facility] [address] [phone] Lex Thompson MD Obstructive sleep apnea (Primary Dx) from Last 3 Months Allergies Active Allergy Reactions Criticality Noted Date Comments Aspirin Unknown 03/20/2011 Patient stated that he got nose bleeds from the asa. Patient stated that he got nose bleeds from the asa. Patient stated that he got nose bleeds from the asa. Penicillin G Unknown 03/20/2011 Patient passed out from the shot Medications albuterol HFA (PROVENTIL HFA,VENTOLIN HFA,PROAIR HFA) 90 mcg/actuation inhaler Inhale 2 puffs every 6 (six) hours as needed 04/19/2019 Active Eliquis 5 mg tablet 08/22/2021 Active amLODIPine (NORVASC) 10 mg tablet 1 tablet (10 mg total) 10/04/2021 Active lisinopriL (PRINIVIL,ZESTRI L) 40 mg tablet 10/23/2021 Act darling metoprolol (LOPRESSOR) 100 mg tablet 09/07/2021 Active Wegovy 2.4 mg/0.75 mL auto-injector 03/18/2023 Activ e Active Problems Problem Noted Date Diagnosed Date Obstructive sleep apnea 11/12/2021 Assessment & Plan (05/05/2024 3:01 PM TALENT ACQUISITION PROGRAM MANAGER): The patient continues to benefit from CPAP at 16 cm water pressure for ongoing symptoms of SEVERO. His DME supplier is [facility]. I will have an order sent to them to show him a variety of fullface mask do not cover the bridge of the nose. I did recommend the F30. He will follow up here in 1 year. Assessment & Plan (05/07/2023 3:46 PM TALENT ACQUISITION PROGRAM MANAGER): The patient continues to benefit from CPAP at 16 cm water pressure for ongoing symptoms SEVERO. His DME supplier is [employer]. He will follow up here in 1 year. Assessment & Plan (05/06/2022 3:32 PM TALENT ACQUISITION PROGRAM MANAGER): The patient continues to benefit from CPAP at 16 cm water pressure. His DME supplier is [employer]. He will follow-up with me in 1 year. Assessment & Plan (11/12/2021 3:45 PM CDT): I did order the patient new CPAP set at 16 cm water pressure while sleeping. His DME is [facility]. Social History Tobacco Use Types Packs/Day Years Used Date Smoking Tobacco: Never Tobacco Cessation:Counseling Given: Not Answered Sex and Gender Information Value Date Recorded Sex Assigned at Not on file Legal Sex Male 8:43 PM TALENT ACQUISITION PROGRAM MANAGER Gender Identity Not on file Sexual Orientation Not on file Last Filed Vital Signs Vital Sign Reading Time Taken Comments Blood Pressure 118/70 05/05/2024 2:42 PM TALENT ACQUISITION PROGRAM MANAGER Pulse 64 05/05/2024 2:42 PM TALENT ACQUISITION PROGRAM MANAGER Temperature 36.3 ??C (97.4 ??F) 05/05/2024 2:42 PM CS T Respiratory Rate 18 05/05/2024 2:42 PM TALENT ACQUISITION PROGRAM MANAGER Oxygen Saturation 97% 05/05/2024 2:42 PM TALENT ACQUISITION PROGRAM MANAGER Inhaled Oxygen Concentration - - Weight 124.3 kg (274 lb) 05/05/2024 2:42 PM TALENT ACQUISITION PROGRAM MANAGER Height 185.4 cm (6' 1 ) 05/05/2024 2:42 PM TALENT ACQUISITION PROGRAM MANAGER Body Mass Index 36.15 05/05/2024 2:42 PM TALENT ACQUISITION PROGRAM MANAGER Plan of Treatment Not on file Insurance [facility] CHO[facility] OOS Member Subscriber Plan / Payer (Ef fective 2022-Present) Name:Conner Chavez Relation to Subscriber:Self Name:Conner Chavez Payer ID:[id number] ([facility]) Type: ALLIANCE Address: [place] [address] Care Teams Premium Cancellation Clerk Relationship Specialty Start Date End Date Fahad Stanley MD [address] [place] [address] PCP - General 06/21/20
--- OUTSIDE RECORDS SUMMARY | 2024-06-09 21:53 | XMS_ITS | Encounter Summary ---
Author Organization [facility] Address [address] [facility] [place], [place] [address] [place] [address] Care Team Providers Care Pipeline Controller Name Role Phone MiAditi ross Maddie [facility] Primary Care Provider + Encounter Details Date Type Department Care Team (Late Contact Info) Description 01/10/2022 Hiphunters Message Enc [address] [phone] Velasquez, [facility] Provider Ozempic Social History Tobacco Use Types Packs/Day Years Used Date Smoking Tobacco: Never Smokeless Tobacco: Never Alcohol Use Standard Drinks/Week Comments Yes 5 (1 standard drink = 0.6 oz pur e alcohol) PHQ-2 Answer Date Recorded PHQ-2 Score - If the patient scores above 3, please move on to questions 3-9 0 01/06/2022 Sex and Gender Information Value Date Recorded Sex Assigned at Not on file Legal Sex Male 7:57 PM CDT Gender Identity Male 08/12/2021 1:26 PM CDT Sexual Orientation Straight 08/12/2021 1: 26 PM CDT COVID-19 Exposure Response Date Recorded In the last 10 days, have yo u been in contact with someone who was confirmed or suspected to have Coronavirus/COVID-19? No / Unsure 01/06/2022 8:48 AM CDT documented as of this encounter Plan of Treatment Upcoming Encounters Date Type Department Care Team (Late Contact Info) Description 10/20/2024 7:20 AM CDT Office Visit [facility] [address] [facility] [address] Aditi Stark, [facility] [address], [address] [place] [address] 05/03/2025 8:00 AM GAMES DEALER Appointment [facility] [address] [facility] [address] Aditi Stark, [facility] [address] [facility], [address] [place] [address] documented as of this encounter Visit Diagnoses Not on filedocumented in this encounter Additional Health Concerns Assessment Noted Time PHQ-9 Depression Total Score: 0 08/14/19 22 3:56 PM CDT documented as of this encounter Care Teams Pipeline Controller Relationship Specialty Start Date End Date Aditi Stark, [facility] [address] [facility], [address] [place] [address] PCP - General NURSE PRACTITIONER 05/14/20 documented as of this encounter
--- OUTSIDE RECORDS SUMMARY | 2024-06-09 21:53 | XMS_ITS | Encounter Summary ---
Author Organization [facility] Address [address] [place] [address] [place] [address] Care Team Providers Care Engineering Operator Name Role Phone Aditi Stark [facility] Primary Care Provider + Encounter Details Date Type Department Care Team (Late Contact Info) Description 11/12/2022 MyChart Message Enc [facility] - [facility] [address] [place], [place] [phone] [facility] Provider Air Quality Message Social History Tobacco Use Types Packs/Day Years Used Date Smoking Tobacco: Never Smokeless Tobacco: Never Alcohol Use Standard Drinks/Week Comments Yes 5 (1 standard drink = 0.6 oz pur e alcohol) PHQ-2 Answer Date Recorded PHQ-2 Score - If the patient scores above 3, please move on to questions 3-9 0 04/03/2022 Sex and Gender Information Value Date Recorded Sex Assigned at Not on file Legal Sex Male 7:57 PM CDT Gender Identity Male 08/12/2021 1:26 PM CDT Sexual Orientation Straight 08/12/2021 1: 26 PM CDT documented as of this encounter Plan of Treatment Upcoming Encounters Date Type Department Care Team (Late Contact Info) Description 10/20/2024 7:20 AM CDT Office Visit [address] [phone] Aditi Stark, [facility] [address] [facility], [address] [place] [address] 05/03/2025 8:00 AM AUTOMATION MACHINE BUILDER Appointment [facility] [address] [place] [address] [place] [address] Aditi Stark, [facility] [address], [address] [place] [address] documented as of this encounter Visit Diagnoses Not on filedocumented in this encounter Additional Health Concerns Assessment Noted Time PHQ-9 Depression Total Score: 0 08/14/19 22 3:56 PM CDT documented as of this encounter Care Teams Engineering Operator Relationship Specialty Start Date End Date Aditi Stark, [facility] [address], [address] [place] [address] PCP - General NURSE PRACTITIONER 05/14/20 documented as of this encounter
--- OUTSIDE RECORDS SUMMARY | 2024-06-09 21:53 | XMS_ITS | Referral Summary ---
Author Organization [facility] Address [address] [place] [place] [address] Care Team Providers Care Installation Supervisor Name Role Phone Aditi Stark Maddie PEPPER Primary Care Provider Source Comments [facility],non-owned Affiliates and Associated Physician Practices is amultiple site organization consisting of ambulatory clinics and hospital sitesin [place], [place], [place] and [place]. This disclosure is being madepursuant to the Care Everywhere program and may not contain all information available regarding this patient. Last updated 18.[facility] Encounters Date Type Department Care Team Description 06/06/2024 Travel 06/06/2024 9:00 AM CONCRETE PLACEMENT EQUIPMENT OPERATOR Office Visit [facility] - [facility] [address] [facility], [place] [phone] Brooke Bernard APRN-CNP Metabolic dysfunction-associated steatohepatitis (MASH) (Primary Dx); Hereditary hemochromatosis (HCC) 06/06/2024 7:18 AM CONCRETE PLACEMENT EQUIPMENT OPERATOR - 06/06/2024 11:59 PM CONCRETE PLACEMENT EQUIPMENT OPERATOR Hospital Encounter [facility] [address] [place] [phone] Brooke Bernard, HOT WORT SETTLER-BUSINESS SPECIALIST Discharge Disposition: Home or Self Care 04/20/2024 Travel 04/20/2024 2:30 PM CONCRETE PLACEMENT EQUIPMENT OPERATOR Office Visit [facility] [address] [phone] Heladio Luna III, MD Class 2 severe [...] HTN; Alcohol use; Constipation, unspecified constipation type 04/12/2024 Telephone [facility] [address] [phone] Jacob Yao RN Medication Issue 04/11/[address] [phone] Heladio Luna III, MD MEDICATION REFILL from Last 3 Months Allergies Active Allergy [...] times daily 90 capsule 5 04/20/2024 10/18/19 25 Active Additional Information Patient not taking.Reported on [...] of scalp without foreign body 03/20/2011 06/11/2023 Immunizations Name Administration Dates Next Due INFLUENZA VACCINE 03/23/2001 INFLUENZA VACCINE, QUADR. (F LUZONE; FLULAVAL; FLUARIX; AFLURIA QUADRIVALENT; 6MO+), 0.5 ML (IIV4) 04/03/2022,03/11/2021,04/19/2019 PNEUMOCOCCAL PPSV23 06/10/2012 TDAP (7yrs+) 10/30/2010 Social History Tobacco Use Types Packs/Day Years [...] Comments Blood Pressure 132/94 06/06/2024 8:45 AM CONCRETE PLACEMENT EQUIPMENT OPERATOR Pulse 73 06/06/2024 8:45 AM CONCRETE PLACEMENT EQUIPMENT OPERATOR Temperature 36.6 ??C (97.8 ??F) 06/06/2024 8:45 AM CS T Respiratory Rate 18 06/11/2023 9:48 AM CONCRETE PLACEMENT EQUIPMENT OPERATOR Oxygen Saturation 98% 06/06/2024 8:45 AM CONCRETE PLACEMENT EQUIPMENT OPERATOR Inhaled Oxygen Concentration - - Weight 124.2 kg (273 lb 12.8 oz) 06/06/2024 8:45 AM CONCRETE PLACEMENT EQUIPMENT OPERATOR Height 185.4 cm (6' 1 ) 06/06/2024 8:45 AM CONCRETE PLACEMENT EQUIPMENT OPERATOR Body Mass Index 36.12 06/06/2024 8:45 AM CONCRETE PLACEMENT EQUIPMENT OPERATOR Plan of Treatment Upcoming Encounters Date Type Department Care Team (Late st Contact Info) Description 10/26/2024 1:30 PM CDT Office Visit [facility] - [address] [phone] Irene Barron PA-C [address] [facility] DEPT [place] [address] 04/26/2025 1:30 PM CONCRETE PLACEMENT EQUIPMENT OPERATOR Office Visit [facility] - [address] [phone] Heladio Luna III, MD [address] [place] [address] DIV [facility] [place] [address] 06/05/2025 8:30 AM CONCRETE PLACEMENT EQUIPMENT OPERATOR Procedure visit [facility] [address] [place] [address], [place] [phone] 06/05/2025 9:00 AM CONCRETE PLACEMENT EQUIPMENT OPERATOR Office Visit [facility] [address] [place] [address], [place] [phone] Brooke Bernard, HOT WORT SETTLER-BUSINESS SPECIALIST [address] [place] [address] [address] [place] [address] Goals Goal Patient Goal Type Associated Problems Recent Progress Patient-Stated? Author Medication Management General On track( 024 2:03 PM CONCRETE PLACEMENT EQUIPMENT OPERATOR) Jude Villegas, RN Note: Expected end date: Interventions: Take all medications as prescribed Let your doctor know right away about any changes in your medications Make sure to request a refill of your medication at least one week prior to your last dose Procedures Procedure Name Priority Date/Time Associated Diagnosis Comments US ABDOMEN LIMITED Routine 06/06/2024 8: 10 AM CONCRETE PLACEMENT EQUIPMENT OPERATOR GRAFF (nonalcoholic steatohepatitis) COMPREHENSIVE METABOLIC PANEL Routine 11/13/2023 7:25 AM CDT Obesity, unspecified classification, unspecified obesity type, unspecified whether serious comorbidity present LIPID PROFILE Routine 11/13/2023 7:25 AM CDT Obesity, unspecified classification, unspecified obesity type, unspecified whether serious comorbidity present HEPATITIS C ANTIBODY Routine 07/22/2016 2:45 PM CONCRETE PLACEMENT EQUIPMENT OPERATOR from Last 3 Months or Most Recently Relevant to Health Maintenance Results * US ABDOMEN LIMITED (06/06/2024 8:10 AM CONCRETE PLACEMENT EQUIPMENT OPERATOR) Anatomical Region Laterality Modality Abdomen Ultrasound 06/06/2024 8:20 AM CONCRETE PLACEMENT EQUIPMENT OPERATOR Impressions 06/06/2024 9:31 AM CONCRETE PLACEMENT EQUIPMENT OPERATOR IMPRESSION: 1.Diffuse hepatic steatosis. No notable surface [...] evaluation. > Dictated by Bunny Olmos MD (president [place]). I, Peg Goldman MD have personally reviewed and interpreted this examination/study. > Interpreting Provider: Peg Goldman MD on 06/06/2024 9:31 AM Narrative 06/06/2024 9:31 AM CONCRETE PLACEMENT EQUIPMENT OPERATOR PROCEDURE: ??US ABDOMEN LIMITED DATE/TIME OF EXAM: [...] evaluation. > Dictated by Bunny Olmos MD (president [place]). I, Abdjinny Goldman MD have personally reviewed and interpreted this examination/study. > Interpreting Provider: Peg Goldman MD on 59:31 AM Brooke Bernard HOT WORT SETTLER-BUSINESS SPECIALIST US ORDERABL ES * (ABNORMAL) COMPREHENSIVE METABOLIC PANEL (11/13/2023 7:25 AM CDT) Glucose 94 65 - 99 mg/dL [facility] Comment: ? Fasting reference interval BUN 12 7 - 25 mg/dL [facility] Creatinine 0.82 0.70 - 1.30 mg/dL [facility] eGFR by Cystatin C 104 > OR = 60 mL/min/1. 73m2 [facility] BUN/Creatinine Ratio SEE NOTE: (calc) [facility] Comment: ?? Not Reported: BUN [...] 46 U/L [facility] Comment: Test Performed at: [facility] [address] [place], [place] ??[phone] CHELE CANO MD Blood BLOOD SPECIMEN / Unknown 11/13/2023 7:25 AM CDT 11/13/2023 7:25 AM CDT Heladio Luna III, MD LAB - CHEMISTRY O RDERABLES [facility] [address] [place] [address] * (ABNORMAL) LIPID PROFILE (11/13/2023 7:25 AM [...] factors. LDL-C is now calculated using the Sherman-Marr calculation, which is a validated novel method providing better accuracy than the Friedewald equation in the estimation of LDL-C. Sherman SS et al. VIRGIL. 2013;310(09): 8672-8879 (http://education.Trendsetters/faq/AHK777) CHOL/HDLC RATIO 3.8 <5.0 (calc) [facility] Non HDL Cholesterol 109 <130 mg/dL (calc) [facility] Comment: For patients with diabetes plus 1 major ASCVD risk factor, treating to a non-HDL-C goal of <100 mg/dL (LDL-C of <70 mg/dL) is considered a therapeutic option. Test Performed at: [facility] [id number] [place] [address] ??[id number] CHELE CANO MD Blood BLOOD SPECIMEN / Unknown 11/13/2023 7:25 AM CDT 11/13/2023 7:25 AM CDT Heladio Luna III, MD LAB - CHEMISTRY O RDERABLES [facility] [address] [place] [address] * HEPATITIS C ANTIBODY (07/22/2016 2:45 PM CONCRETE PLACEMENT EQUIPMENT OPERATOR) Pathologist [facility] Hepatitis C Antibody Non-react [facility]ORATORY HOSPITAL Comment: Hepatitis C Antibody [...] BLOOD SPECIMEN / Unknown 07/22/2016 2:45 PM CONCRETE PLACEMENT EQUIPMENT OPERATOR 07/22/2016 2:54 PM CONCRETE PLACEMENT EQUIPMENT OPERATOR Arik Lipscomb MD LAB - CHEMISTRY ISHMAEL Cook Organization Address City/State/ZIP Co de Phone Number [facility] [address] [place] [address] from Last 3 Months or Most Recently Relevant to Health Maintenance Care Teams Installation Supervisor Relationship Specialty Start Date End Date Aditi Stark, HOT WORT SETTLER-BUSINESS SPECIALIST [address] [facility], [address] [place] [address] PCP - General Nurse Practitioner 12/08/22
--- OUTSIDE RECORDS SUMMARY | 2024-06-09 21:53 | XMS_ITS | Encounter Summary ---
Author Organization [facility] Address [address] [facility] [place] [address] Care Team Providers Care Medical Office Manager Name Role Phone Aditi Stark APRN-PARTS CONTROL CLERK Primary Care Provider Reason for Referral * Radiology Services (Routine) - Closed Specialty Diagnoses / Procedures Referred By Alcon mccormack Referred To Contact Ultrasound Diagnoses GRAFF (nonalcoholic steatohepatitis) Procedures US ABDOMEN LIMITED Brooke Bernard APRN-CNP [address] [place] [address] [facility] [address] [place] [address] Referral ID Status Reason Start Date Expiration Date Visits Re quested Visits Authorized [id number] Closed 06/11/2024 06/11/2025 1 1 HT LINE MECHANIC Reason for Visit * Radiology Services (Routine) - Closed Specialty Diagnoses / Procedures Referred By Alcon mccormack Referred To Contact Ultrasound Diagnoses GRAFF (nonalcoholic steatohepatitis) Procedures US ABDOMEN LIMITED Brooke Bernard APRN-PARTS CONTROL CLERK [address] [facility] [address] [place] [address] [phone] Referral ID Status Reason Start Date Expiration Date Visits Re quested Visits Authorized [id number] Closed 06/11/2024 06/11/2025 1 1 Encounter Details Date Type Department Care Team (Late st Contact Info) Description 06/06/2024 7:18 AM FLIGHT LINE MECHANIC - 06/06/2024 11:59 PM [facility] Hospital Encounter [address] [phone] Brooke Bernard APRN-PARTS CONTROL CLERK [address] [facility] [address] [place] [address] Discharge Disposition: Home or Self Care Social History Tobacco Use Types Packs/Day Years [...] on file documented as of this encounter Medications at Time of Discharge Medication Sig Dispensed Refills Start Date End Date Airsupra 90-80 MCG/ACT AERO Inhale 2 puffs by mouth every 4 hours as needed 05/03/2024 amLODIPine (Norvasc) 10 MG tablet Take 1 (one) tablet by mouth once daily carvedilol (Coreg) 12.5 MG tabletIndications:Macho gn essential HTN Take 1 (one) tablet by mouth 2 times daily 60 tablet 5 04/20/2024 CPAP Use as directed 14cm H20 lisinopril (PRINIVIL; ZESTRIL) 40 MG tablet Take 1 (one) tablet by mouth once daily ondansetron, disintegrating, (Zofran ODT) 4 MG tablet Take 1 (one) tablet by mouth every 8 hours as needed 05/31/2023 PROAIR HFA 108 (90 Base) MCG/ACT inhaler Inhale 2 (two) puffs by mouth as needed for Shortness of Breath or Wheezing 04/19/2019 psyllium (Metamucil) CAPS capsuleIndications:Con stipation, unspecified constipation type Take 1 (one) capsule by mouth 3 times daily 90 capsule 5 04/20/2024 10/17/2024 tamsulosin (Flomax) 0.4 MG capsule Take 1 (one) capsule by mouth once daily 05/03/2024 tirzepatide (Zepbound) 15 MG/0.5ML injectionIndications:C lass 2 severe obesity due to excess calories with serious comorbidity and body mass index (BMI) of 39.0 to 39.9 in adult (HCC),Metabolic dysfunction-associated steatohepatitis (MASH) Inject 15 (fifteen) mg subcutaneously every 7 days 6 mL 2 04/20/2024 traMADol (Ultram) 50 MG tablet Take 1 (one) tablet by mouth every 6 hours as needed For pain. 05/06/2024 tretinoin (Retin-A) 0.1 % cream Apply to affected area once daily 01/27/2024 documented as of this encounter Plan of Treatment Upcoming Encounters Date Type Department Care Team (Late st Contact Info) Description 10/26/2024 1:30 PM CDT Office Visit [facility] - [address] [phone] Irene Barron PA-C [address] [facility] DEPT [place] [phone] 04/26/2025 1:30 PM FLIGHT LINE MECHANIC Office Visit [facility] - [address] [phone] Heladio Luna III, MD [address] [place] [phone] 06/05/2025 8:30 AM FLIGHT LINE MECHANIC Procedure visit [facility] Physician [address] [phone] 06/05/2025 9:00 AM FLIGHT LINE MECHANIC Office Visit [facility] - GI [address] [facility], [place] [address] Brooke Bernard, NUTRITIONIST-PARTS CONTROL CLERK [address] [facility] [address] [place] [address] documented as of this encounter Goals Goal Patient Goal Type Associated Problems Recent Progress Patient-Stated? Author Medication Management General On track( 024 2:03 PM FLIGHT LINE MECHANIC) Jude Villegas, RN Note: Expected end date: Interventions: Take all medications as prescribed Let your doctor know right away about any changes in your medications Make sure to request a refill of your medication at least one week prior to your last dose documented as of this encounter Procedures Procedure Name Priority Date/Time Associated Diagnosis Comments US ABDOMEN LIMITED Routine 06/06/2024 8: 10 AM FLIGHT LINE MECHANIC GRAFF (nonalcoholic steatohepatitis) documented in this encounter Results * US ABDOMEN LIMITED (06/06/2024 8:10 AM FLIGHT LINE MECHANIC) Anatomical Region Laterality Modality Abdomen Ultrasound 06/06/2024 8:20 AM FLIGHT LINE MECHANIC Impressions 06/06/2024 9:31 AM FLIGHT LINE MECHANIC IMPRESSION: 1.Diffuse hepatic steatosis. No notable surface [...] helpful for further evaluation. > Dictated by uBnny Olmos MD (vice president of compliance). I, Peg Goldman MD have personally reviewed and interpreted this examination/study. > Interpreting Provider: Peg Goldman MD on 06/06/2024 9:31 AM Narrative 06/06/2024 9:31 AM FLIGHT LINE MECHANIC PROCEDURE: ??US ABDOMEN LIMITED DATE/TIME OF EXAM: [...] evaluation. > Dictated by Bunny Olmos MD (vice president of compliance). I, Peg Goldman MD have personally reviewed and interpreted this examination/study. > Interpreting Provider: Peg Goldman MD on 59:31 AM Brooke Bernard APRN-PARTS CONTROL CLERK ORDERABL ES documented in this encounter Visit Diagnoses Diagnosis GRAFF (nonalcoholic steatohepatitis) Other chronic nonalcoholic liver disease documented in this encounter Care Teams Medical Office Manager Relationship Specialty Start Date End Date Aditi Stark APRN-DAVY [address] [facility], [address] [place] [address] PCP - General Nurse Practitioner 12/08/22 documented as of this encounter
--- OUTSIDE RECORDS SUMMARY | 2024-06-09 21:53 | XMS_ITS | Encounter Summary ---
Author Organization [facility] Address [address] [facility] [place] [address] [place] [address] Care Team Providers Care Flatwork Ironer Name Role Phone Lawson Mathew MD Primary Care Provider Unavailable Shannon Carr MD Primary Care Provider Un available Aditi Stark [facility] Primary Care Provider + Encounter Details Date Type Department Care Team (Late Contact Info) Description 10/11/2009 Abstract [facility] Conversion , Generic Conversion, Social History Tobacco Use Types Packs/Day Years Used Date Smoking Tobacco: Never Assessed Sex and Gender Information Value Date Recorded Sex Assigned at Not on file Legal Sex Male 7:57 PM CDT Gender Identity Male 08/12/2021 1:26 PM CDT Sexual Orientation Straight 08/12/2021 1: 26 PM CDT documented as of this encounter Plan of Treatment Upcoming Encounters Date Type Department Care Team (Late Contact Info) Description 10/20/2024 7:20 AM CDT Office Visit [facility] [address] [place] [phone] Aditi Stark, [facility] [address] [facility], [address] [place] [address] 05/03/2025 8:00 AM ICING MAKER Appointment [facility] [address] [place] [address] Aditi Stark, [facility] [address] [facility], [address] [place], [place] [phone] documented as of this encounter Visit Diagnoses Not on filedocumented in this encounter Care Teams Flatwork Ironer Relationship Specialty Start Date End Date Lawson Mathew MD PCP - General FAMILY PRACTICE 04/27/18 05/04/18 Shannon Carr MD PCP - General INTERNAL MEDICINE 05/05/18 05/13/20 Aditi Stark, [facility] [address] [facility], [address] [place] [address] PCP - General NURSE PRACTITIONER 05/14/20 documented as of this encounter
--- OUTSIDE RECORDS SUMMARY | 2024-06-09 21:53 | XMS_ITS | Encounter Summary ---
Author Organization [facility] Address [facility] [place] [address] Care Team Providers Care Linux Support Engineer Name Role Phone Aditi Stark JAVA SUPPORT ENGINEER-SHEEP FARM MANAGER Primary Care Provider Reason for Visit * Reason Onset Date Comments MEDICATION REFILL 02/11/2024 Encounter Details Date Type Department Care Team (Late st Contact Info) Description 02/11/2024 Refill [facility] - [address], [place] [phone] Heladio Luna III, MD [address] [place] [phone] MEDICATION REFILL Social History Tobacco Use Types [...] Description 10/26/2024 1:30 PM CDT Office Visit [facility] - GI [address] [place] [phone] Irene Barron PA-C [address] [facility] [place] [place] [phone] 04/26/2025 1:30 PM POT PUSHER Office Visit [facility] - [address] [phone] Heladio Luna III, MD [address] [place] [address] [address] [place] [phone] 06/05/2025 8:30 AM POT PUSHER Procedure visit [facility] - [address] [phone] 06/05/2025 9:00 AM POT PUSHER Office Visit [facility] - [address] [phone] Brooke Bernard, JAVA SUPPORT ENGINEER-SHEEP FARM MANAGER [address] [place] [address] [address] DIV OF GASTROENTEROLOGY [place], [place] [phone] documented as of this encounter Goals Goal Patient Goal Type Associated Problems Recent Progress Patient-Stated? Author Medication Management General On track( 024 2:03 PM POT PUSHER) Jude Villegas, RN Note: Expected end date: Interventions: Take all medications as prescribed Let your doctor know right away about any changes in your medications Make sure to request a refill of your medication at least one week prior to your last dose documented as of this encounter Visit Diagnoses Not on filedocumented in this encounter Care Teams Linux Support Engineer Relationship Specialty Start Date End Date Aditi Stark, JAVA SUPPORT ENGINEER-SHEEP FARM MANAGER [address] [facility], [address] [place] [address] PCP - General Nurse Practitioner 12/08/22 documented as of this encounter
--- OUTSIDE RECORDS SUMMARY | 2024-06-09 21:53 | XMS_ITS | Patient Health Summary ---
Author Organization [facility] Address [address] [place] [address] Care Team Providers Care Biomass Boiler Operator Name Role Phone Aditi Stark LIMNOLOGIST-AUTO DAMAGE ADJUSTER Primary Care Provider Note from [facility],non-owned Affiliates and Associated Physician Practices is amultiple site organization consisting of ambulatory clinics and hospital sitesin [place], [place], [place] and [place]. This disclosure is being madepursuant to the Care Everywhere program and may not contain all information available regarding this patient. Last updated 18.[facility] Allergies * Aspirin(Patient stated that he got nose bleeds from the asa.) * Penicillin G Proc & Benzathine(Patient passed out from the shot) Medications * Be aware that medications may not be up to date on this document. Alwaysverify current medications with the patient. * PROAIR HFA 108 (90 Base) MCG/ACT inhaler(Started 04/19/2019) Inhale 2 (two) puffs by mouth as needed for Shortness of Breath or Wheezing * CPAP Use as directed 14cm H20 * lisinopril (PRINIVIL; ZESTRIL) 40 MG tablet Take 1 (one) tablet by mouth once daily * amLODIPine (Norvasc) 10 MG tablet Take 1 (one) tablet by mouth once daily * tirzepatide (Zepbound) 15 MG/0.5ML injection(Started 04/20/2024) Inject 15 (fifteen) mg subcutaneously every 7 days 2 refills by 04/20/2025 * psyllium (Metamucil) CAPS capsule(Started 04/20/2024) Take 1 (one) capsule by mouth 3 times daily 5 refills by 04/20/2025 * carvedilol (Coreg) 12.5 MG tablet(Started 04/20/2024) Take 1 (one) tablet by mouth 2 times daily 5 refills by 04/20/2025 * Airsupra 90-80 MCG/ACT AERO(Started 05/03/2024) Inhale 2 puffs by mouth every 4 hours as needed * ondansetron, disintegrating, (Zofran ODT) 4 MG tablet(Started 05/31/2023) Take 1 (one) tablet by mouth every 8 hours as needed * traMADol (Ultram) 50 MG tablet(Started 05/06/2024) Take 1 (one) tablet by mouth every 6 hours as needed For pain. * tretinoin (Retin-A) 0.1 % cream(Started 01/27/2024) Apply to affected area once daily * tamsulosin (Flomax) 0.4 MG capsule(Started 05/03/2024) Take 1 (one) capsule by mouth once daily Active Problems Problem Noted Date Diagnosed Date Class 2 severe obesity with serious comorbidity and body mass index (BMI) of 39.0 to 39.9 in adult 12/26/2021 Metabolic syndrome 12/26/2021 GRAFF (nonalcoholic steatohepatitis) 03/23/2018 Hereditary hemochromatosis 08/17/2017 Resolved Problems Problem Noted Date Diagnosed Date Resolved Date Laceration of scalp without foreign body 03/20/2011 06/11/2023 Immunizations * INFLUENZA VACCINE(Given 03/23/2001) * INFLUENZA VACCINE, QUADR. (FLUZONE; FLULAVAL; FLUARIX; AFLURIA QUADRIVALENT; 6MO+), 0.5 ML (IIV4)(Given 04/03/2022, 03/11/2021, 04/19/2019) * PNEUMOCOCCAL PPSV23(Given 06/10/2012) * TDAP (7yrs+)(Given 10/30/2010) Social History Tobacco Use Types Packs/Day Years [...] Comments Blood Pressure 132/94 06/06/2024 8:45 AM RADIAL DRILL PRESS SET UP OPERATOR Pulse 73 06/06/2024 8:45 AM RADIAL DRILL PRESS SET UP OPERATOR Temperature 36.6 ??C (97.8 ??F) 06/06/2024 8:45 AM CS T Respiratory Rate 18 06/11/2023 9:48 AM RADIAL DRILL PRESS SET UP OPERATOR Oxygen Saturation 98% 06/06/2024 8:45 AM RADIAL DRILL PRESS SET UP OPERATOR Inhaled Oxygen Concentration - - Weight 124.2 kg (273 lb 12.8 oz) 06/06/2024 8:45 AM RADIAL DRILL PRESS SET UP OPERATOR Height 185.4 cm (6' 1 ) 06/06/2024 8:45 AM RADIAL DRILL PRESS SET UP OPERATOR Body Mass Index 36.12 06/06/2024 8:45 AM RADIAL DRILL PRESS SET UP OPERATOR Procedures * US ABDOMEN LIMITED(Performed 06/06/2024) Performed for GRAFF (nonalcoholic steatohepatitis) * COMPREHENSIVE METABOLIC PANEL(Performed 11/13/2023) Performed for Obesity, unspecified classification, unspecified obesity type, unspecified whether serious comorbidity present * LIPID PROFILE(Performed 11/13/2023) Performed for Obesity, unspecified classification, unspecified obesity type, unspecified whether serious comorbidity present * HEMOGLOBIN A1C(Performed 11/13/2023) Performed for Obesity, unspecified classification, unspecified obesity type, unspecified whether serious comorbidity present * COMPREHENSIVE METABOLIC PANEL(Performed 06/18/2023) Performed for Hypokalemia * FL LIVER ELASTOGRAPHY(Performed 06/11/2023) Performed for GRAFF (nonalcoholic steatohepatitis) * US ABDOMEN LIMITED(Performed 06/11/2023) Performed for GRAFF (nonalcoholic steatohepatitis) * FERRITIN(Performed 05/23/2023) * CBC W AUTO DIFFERENTIAL(Performed 05/23/2023) * COMPREHENSIVE METABOLIC PANEL(Performed 05/23/2023) * ALPHA FETOPROTEIN BLOOD TUMOR MARKER(Performed 11/29/2022) Performed for GRAFF (nonalcoholic steatohepatitis) * COMPREHENSIVE METABOLIC PANEL(Performed 11/29/2022) Performed for GRAFF (nonalcoholic steatohepatitis) * CBC W AUTO DIFFERENTIAL(Performed 11/29/2022) Performed for GRAFF (nonalcoholic steatohepatitis) * PT-INR(Performed 11/29/2022) Performed for GRAFF (nonalcoholic steatohepatitis) * ALPHA FETOPROTEIN BLOOD TUMOR MARKER(Performed 04/21/2022) Performed for Hereditary hemochromatosis (HCC), GRAFF (nonalcoholic steatohepatitis), Screening for cancer * FERRITIN(Performed 04/21/2022) Performed for Hereditary hemochromatosis (HCC), GRAFF (nonalcoholic steatohepatitis) * COMPREHENSIVE METABOLIC PANEL(Performed 04/21/2022) Performed for Hereditary hemochromatosis (HCC), GRAFF (nonalcoholic steatohepatitis) * CBC W AUTO DIFFERENTIAL(Performed 04/21/2022) Performed for Hereditary hemochromatosis (HCC), GRAFF (nonalcoholic steatohepatitis) * HEMOGLOBIN A1C(Performed 12/28/2021) * FERRITIN(Performed 12/28/2021) * IGG BLOOD(Performed 12/28/2021) * PT-INR(Performed 12/28/2021) * CBC W/O DIFFERENTIAL(Performed 12/28/2021) * COMPREHENSIVE METABOLIC PANEL(Performed 12/28/2021) * LIPID PROFILE(Performed 12/28/2021) * FL LIVER ELASTOGRAPHY(Performed 08/12/2021) Performed for GRAFF (nonalcoholic steatohepatitis), Hereditary hemochromatosis (HCC) * FERRITIN(Performed 05/06/2021) * CBC W/O DIFFERENTIAL(Performed 05/06/2021) * COMPREHENSIVE METABOLIC PANEL(Performed 05/06/2021) * FERRITIN(Performed 10/19/2020) * CBC W/O DIFFERENTIAL(Performed 10/19/2020) * COMPREHENSIVE METABOLIC PANEL(Performed 10/19/2020) * FERRITIN(Performed 09/01/2020) * CBC W/O DIFFERENTIAL(Performed 09/01/2020) * COMPREHENSIVE METABOLIC PANEL(Performed 09/01/2020) * FERRITIN(Performed 03/23/2020) * PT-INR(Performed 03/23/2020) * CBC W/O DIFFERENTIAL(Performed 03/23/2020) * HEPATIC FUNCTION PANEL(Performed 03/23/2020) * BASIC METABOLIC PANEL (CALCIUM TOTAL)(Performed 03/23/2020) * IRON + TIBC PANEL(Performed 03/23/2020) * GGT(Performed 03/23/2020) * US ABDOMEN LIMITED(Performed 02/07/2020) Performed for GRAFF (nonalcoholic steatohepatitis), Hereditary hemochromatosis (HCC) * FL LIVER ELASTOGRAPHY(Performed 02/07/2020) Performed for GRAFF (nonalcoholic steatohepatitis), Hereditary hemochromatosis (HCC) * FERRITIN(Performed 11/25/2019) * CBC W AUTO DIFFERENTIAL(Performed 11/25/2019) * COMPREHENSIVE METABOLIC PANEL(Performed 11/25/2019) * FERRITIN(Performed 03/18/2018) Performed for Hereditary hemochromatosis (HCC) * COMPREHENSIVE METABOLIC PANEL(Performed 03/18/2018) Performed for Hereditary hemochromatosis (HCC) * CBC W AUTO DIFFERENTIAL(Performed 03/18/2018) Performed for Hereditary hemochromatosis (HCC) * COMPREHENSIVE METABOLIC PANEL(Performed 08/01/2017) * CBC W AUTO DIFFERENTIAL(Performed 08/01/2017) * FERRITIN(Performed 01/31/2017) * COMPREHENSIVE METABOLIC PANEL(Performed 01/31/2017) * CBC W AUTO DIFFERENTIAL(Performed 01/31/2017) * HEMOCHROMATOSIS MUTATION PANEL(Performed 07/22/2016) * CBC W AUTO DIFFERENTIAL(Performed 07/22/2016) * [id number] BLOOD PHENOTYPING PANEL(Performed 07/22/2016) * MITOCHONDRIAL ANTIBODY SCREEN(Performed 07/22/2016) * SMOOTH MUSCLE ANTIBODY(Performed 07/22/2016) * DAIJA BLOOD SCREEN(Performed 07/22/2016) * ALPHA FETOPROTEIN BLOOD TUMOR MARKER(Performed 07/22/2016) * HEPATITIS A ANTIBODY(Performed 07/22/2016) * FERRITIN(Performed 07/22/2016) * HEPATITIS C ANTIBODY(Performed 07/22/2016) * HEPATITIS B SURFACE ANTIBODY(Performed 07/22/2016) * HEPATITIS B SURFACE ANTIGEN W RFLX CONFIRMATION(Performed 07/22/2016) * HEPATITIS B CORE ANTIBODY TOTAL(Performed 07/22/2016) * CERULOPLASMIN(Performed 07/22/2016) * COMPREHENSIVE METABOLIC PANEL(Performed 07/22/2016) * PT-INR SLH(Performed 07/22/2016) * CBC W AUTO DIFFERENTIAL(Performed 07/22/2016) Results * US ABDOMEN LIMITED (06/06/2024 8:10 AM RADIAL DRILL PRESS SET UP OPERATOR) Only the most recent of3 resultswithin the time period is included. Anatomical Region Laterality Modality Abdomen Ultrasound 06/06/2024 8:20 AM RADIAL DRILL PRESS SET UP OPERATOR Impressions 06/06/2024 9:31 AM RADIAL DRILL PRESS SET UP OPERATOR IMPRESSION: 1.Diffuse hepatic steatosis. No notable [...] evaluation. > Dictated by Bunny Olmos MD (president). I, Peg Goldman MD have personally reviewed and interpreted this examination/study. > Interpreting Provider: Peg Goldman MD on 06/06/2024 9:31 AM Narrative 06/06/2024 9:31 AM RADIAL DRILL PRESS SET UP OPERATOR PROCEDURE: ??US ABDOMEN LIMITED DATE/TIME OF [...] evaluation. > Dictated by Bunny Olmos MD (president). I, Peg Goldman MD have personally reviewed and interpreted this examination/study. > Interpreting Provider: Peg Goldman MD on 59:31 AM Brooke Bernard LIMNOLOGIST-AUTO DAMAGE ADJUSTER US ORDERABL ES * HEMOGLOBIN A1C (11/13/2023 7:25 AM CDT) Only the most recent of2 resultswithin the time period is included. Hemoglobin A1c 5.4 <5.7 % of total Hgb [facility] Comment: For the purpose of screening for the presence of diabetes: <5.7% ? Consistent with the absence of diabetes 5.7-6.4% ?Consistent with increased risk for diabetes ?(prediabetes) > or =6.5% ??Consistent with diabetes This assay result is consistent with a decreased risk of diabetes. Currently, no consensus exists regarding use of hemoglobin A1c for diagnosis of diabetes in children. According to [place] Diabetes Association (ADA) guidelines, hemoglobin A1c <7.0% represents optimal control in non- diabetic patients. Different metrics may apply to specific patient populations. Standards of Medical Care in Diabetes(ADA). ? This test was performed on the Mitzi guillermina c503 platform. Effective 08/03/23, a change in test platforms from the [employer] to the Mitzi guillermina c503 may have shifted HbA1c results compared to historical results. Based on laboratory validation testing conducted at [facility], the Mitzi platform relative to the Hernandez platform had an average increase in HbA1c value of < or = 0.3%. This difference is within accepted variability established by the National Glycohemoglobin Standardization Program. Note that not all individuals will have had a shift in their results and direct comparisons between historical and current results for testing conducted on different platforms is not recommended. REPORT COMMENT: FASTING:YES Test Performed at: [facility] [address] [place], [place] ??[address] CHELE CANO MD Blood BLOOD SPECIMEN / Unknown 11/13/2023 7:25 AM CDT 11/13/2023 7:25 AM CDT Heladio Luna III, MD LAB - CHEMISTRY O RDERABLES [address] [address] * (ABNORMAL) COMPREHENSIVE METABOLIC PANEL (11/13/2023 7:25 AM CDT) Only the most recent of14 resultswithin the time period is included. Glucose 94 65 - 99 mg/dL [facility] [...] 46 U/L [facility] Comment: Test Performed at: [facility] [address] [place], [place] ??[phone] CHELE CANO MD Blood BLOOD SPECIMEN / Unknown 11/13/2023 7:25 AM CDT 11/13/2023 7:25 AM CDT Heladio Luna III, MD LAB - CHEMISTRY O RDXIAO Performing Organization Address [facility] de Phone Number [facility] [address] [place] [address] * (ABNORMAL) LIPID PROFILE (11/13/2023 7:25 AM CDT) Only the most recent of2 resultswithin the time period is included. Cholesterol 148 <200 mg/dL [facility] HDL Cholesterol [...] LDL-C. Sherman REA et al. VIRGIL. 2013;310(19): 0735-7535 (http://education.Orthobond/faq/JXD235) CHOL/HDLC RATIO 3.8 <5.0 (calc) [facility] Non HDL Cholesterol 109 <130 mg/dL (calc) [facility] Comment: For patients with diabetes plus 1 major ASCVD risk factor, treating to a non-HDL-C goal of <100 mg/dL (LDL-C of <70 mg/dL) is considered a therapeutic option. Test Performed at: [facility] ??[phone] CHELE CANO MD Blood BLOOD SPECIMEN / Unknown 11/13/2023 7:25 AM CDT 11/13/2023 7:25 AM CDT Heladio Luna III, MD LAB - CHEMISTRY O DONNA Performing Organization Address [facility] de Phone Number [facility] [address] [place] [address] * FL LIVER ELASTOGRAPHY (06/11/2023 9:35 AM RADIAL DRILL PRESS SET UP OPERATOR) Narrative Juan J Ridley, MD - 06/11/2023 9:35 AM RADIAL DRILL PRESS SET UP OPERATOR Juan J Ridley MD ? 06/11/2023 ??1:30 PM Diagnosis: GRAFF RN verified patient is NPO for prior 3 hours. Procedure explained. Date of Exam: 06/11/2023 Liver Stiffness: (LSM, kPa) median: ??6.4 IQR/Median% (ideally < 30%): ??6% CAP (controlled attenuation parameter): ??326 Technical Difficulty: None Ordering Provider: Brooke Bernard APRN-DAVY Phone Fax Fibroscan interpretation: I have personally reviewed the Fibroscan report and associated tracings. The calculated Liver Stiffness Measurement (LSM, kPa) indicates that: The probability of advanced liver fibrosis is: low. The loss of ultrasound signal, (controlled attenuation parameter, CAP [dB/m]), indicates that the probability of hepatic steatosis is: high. Juan J Bacon MD The following criteria are used to indicate the probability of advanced (stage 3-4) fibrosis: < 7.0 kPa: low 7.0-8.9 kPa: low to moderate 9.0-14.9 kPa: moderate 15-20 kPa: high > 20 kPa: very high Liver stiffness > 20 kPa is also associated with a high probability of complications of portal hypertension including varices and ascites. Liver stiffness > 50 kPa is associated with a high risk of variceal bleeding. These interpretations are based on the following published data: Ang PJ, Ingrid M, Irene M, et al. Accuracy of FibroScan controlled attenuation parameter and liver stiffness measurement in assessing steatosis and fibrosis in patients with nonalcoholic fatty liver disease. Gastroenterology 2019;156:8652-8541. Abena MS, Jose R, Van Natta ML, et al. Vibration-controlled transient elastography to assess fibrosis and steatosis in patients with nonalcoholic fatty liver disease. Clin Gastroenterol Hepatol 2019;17:156-163. Note that scores have been developed that incorporate the Fibroscan liver stiffness measurement from large cohorts of patients with liver biopsies to further refine the ability of Fibroscan to identify patients ??with MASH and advanced fibrosis. These include the FAST (Fibroscan-AST) score (Woreta, 2021) and the Agile3+ and Agile4 scores (Brandon, 202). Henrique TA, Van Valeria ML, Lorena M, Ishan A, et al. Validation of the accuracy of the FAST score for detecting patients with at-risk nonalcoholic steatohepatitis (GRAFF) in a [place] cohort and comparison to other non-invasive algorithms. PLoS ONE (2021) 17: [id number]. Brandon AJ, Oleg J, Fili ZM, et al. Enhanced diagnosis of advanced fibrosis and cirrhosis in individuals with NAFLD using FibroScan-based Agile scores. J Hepatol (2022) 78: 247-259. Fibroscan LSM can also be used with laboratory parameters without formulas to assess prognosis. According to the Baveno-VII criteria (Sharma, 2021), Fibroscan LSM ?15 kPa plus a platelet count of ?[id number]/L rules out clinically significant portal hypertension (sensitivity and negative predictive value >90%) in patients with compensated advanced chronic liver disease. Sharma R, Renetta J, Oliver-Taco G, Julio Cesar T, Khanh C on behalf of the Baveno VII Faculty. Baveno VII--Renewing consensus in portal hypertension. J Hepatol (2021) 76: 959-974 Assessing the likelihood of advanced fibrosis in patients with intermediate liver stiffness measurement (LSM) by Fibroscan (e.g., 8-15 kPa) can be improved by also calculating the FIB-4 score (Nina et al. Hepatology Communications 2019;3:4939-8345) or NAFLD Fibrosis score (Luis et al. Clinical Gastroenterology and Hepatology 2019;17:7996-2970 using ??routine clinical data. Note: 1. Fibroscan cannot reliably identify earlier stages of fibrosis (ie distinguish F0 from F1 and F2) and thus a histologic stage cannot be predicted from the Fibroscan reading. 2. Liver stiffness can be increased by factors other than fibrosis including passive congestion, infiltrative processes, active alcoholism, recent moderate alcohol consumption in the 2 weeks before the exam, ??biliary obstruction and marked inflammation. The interpretation of the Fibroscan result provided above may not have taken such clinical factors into account. Disease etiology also influences Fibroscan cutoff values for fibrosis stages and the following cutoffs have been proposed (Brie et al, Clin Gastro Hepatol 2015; 13:27-36): Cutoffs for Stage 3 and Stage 4 fibrosis respectively: Hepatitis B: >9 and >11.7 kPa Hepatitis C: >9.5 and >12.5 kPa HCV-HIV: >11 and >14 kPa Cholestatic liver diseases: >10 and >17.9 kPa MASLD/MASH: >10 and >14 kPa CAP estimates of steatosis: normal <200 dB/m mild 200 to 250 dB/m moderate 250-290 dB/m substantial > 290 dB/m (Note that Fibroscan is not a quantitative measure of liver fat.) These criteria are estimates and may change as additional supporting data becomes available. (This additional interpretive data was last updated 09/20/22.) http://www.university hospitalkontoblick.[employer]/yvk-gdugbftu-edcrupkobo Brooke Bernard LIMNOLOGIST-AUTO DAMAGE ADJUSTER PROCEDURE/M INOR SURGICAL ORDERABLES * CBC WITH DIFFERENTIAL (05/23/2023 7:45 AM RADIAL DRILL PRESS SET UP OPERATOR) Only the most recent of9 resultswithin the time period is included. White Blood Cell Count 4.9 3.8 - 10.8 Thousand/u L [facility] RBC 5.21 4.20 - 5.80 Million/uL [facility] Hemoglobin 15.8 13.2 - 17.1 g/dL [facility] Hematocrit 46.2 38.5 - 50.0 % [facility] MCV 88.7 80.0 - 100.0 fL [facility] MCH 30.3 27.0 - 33.0 pg [facility] MCHC 34.2 32.0 - 36.0 g/dL [facility] RDW 12.1 11.0 - 15.0 % [facility] Platelet Count 165 140 - 400 Thousand/u L [facility] MPV 10.2 7.5 - 12.5 fL [facility] Neutrophil Absolute 2489 1500 - 7800 cells/uL [facility] Absolute Bands [facility] Metamyelocytes Absolute [facility] Myelocytes Absolute [facility] Absolute Prolymphocytes [facility] Lymphocytes Absolute 1544 850 - 3900 cells/uL [facility] Absolute Monocytes 627 200 - 950 cells/uL [facility] Eosinophils Absolute 201 15 - 500 cells/uL [facility] Basophils Absolute 39 0 - 200 cells/uL [facility] Absolute Blasts [facility] nRBC Absolute [facility] Granulocytes % 50.8 % [facility] Band Neutrophil [facility] Metamyelocytes [facility] Myelocytes [facility] Promyelocytes [facility] Lymphocytes % 31.5 % [facility] Lymphocyte Reactive [facility] Monocytes % 12.8 % [facility] Eosinophils % 4.1 % [facility] Basophils % 0.8 % [facility] Comment: Test Performed at: [email or web address] [address] [place], [place] ??[phone] CHELE CANO MD [facility] Comments [facility] Comment: Test Performed at: [facility] [address] [place], [place] ??[phone] CHELE CANO MD 05/23/2023 7:45 AM RADIAL DRILL PRESS SET UP OPERATOR 05/23/2023 7:45 AM RADIAL DRILL PRESS SET UP OPERATOR Brooke PEPPER LAB - HEMAT OLOGY ORDERABLES Performing Organization Address [facility] Co de Phone Number [facility] [address] [place] [address] * FERRITIN (05/23/2023 7:45 AM RADIAL DRILL PRESS SET UP OPERATOR) Only the most recent of11 resultswithin the time period is included. Pathologist [facility] Ferritin 96 38 - 380 ng/mL [facility] Comment: REPORT COMMENT: FASTING:YES Test Performed at: [employer] [facility] [address] [place], [place] ??[phone] CHELE CANO MD 05/23/2023 7:45 AM RADIAL DRILL PRESS SET UP OPERATOR 05/23/2023 7:45 AM RADIAL DRILL PRESS SET UP OPERATOR Brooke PEPPER LAB - CHEMI STRY ORDERABLES Performing Organization Address [facility] Co de Phone Number [facility] [id number] [place] [address] * ALPHA FETOPROTEIN BLOOD TUMOR MARKER (11/29/2022 7:40 AM CDT) Only the most recent of3 resultswithin the time period is included. Pathologist [facility] Alpha-Fetoprotei n Tumor Marker 2.3 <6.1 ng/mL [facility] Comment: This test was performed using the Shira Leroy chemiluminescent method. Values obtained from different assay methods cannot be used interchangeably. AFP levels, regardless of value, should not be interpreted as absolute evidence of the presence or absence of disease. Test Performed at: [facility] [address] [place] ??[phone] MARISA BRIDGES Blood BLOOD SPECIMEN / Unknown 11/29/2022 7:40 AM CDT 11/29/2022 7:41 AM CDT Brooke Bernard LIMNOLOGIST-AUTO DAMAGE ADJUSTER LAB - CHEMI STRY ORDERABLES Performing Organization Address [facility] de Phone Number [address] [address] * PT-INR (11/29/2022 7:37 AM CDT) Only the most recent of3 resultswithin the time period is included. Pathologist [facility] INR 1.0 [facility] Comment: Reference Range ? 0.9-1.1 Moderate-intensity Warfarin Therapy 2.0-3.0 Higher-intensity Warfarin Therapy ?? 3.0-4.0 PT 10.8 9.0 - 11.5 sec [facility] Comment: For additional information, please refer to http://education.BIO[employer] Group/faq/GIA538 (This link is being provided for informational/ educational purposes only.) Test Performed at: [facility] ??[phone] CHELE CANO MD Blood BLOOD SPECIMEN / Unknown 11/29/2022 7:37 AM CDT 11/29/2022 7:39 AM CDT Brooke Bernard LIMNOLOGIST-AUTO DAMAGE ADJUSTER LAB - COAGU LATION ORDERABLES Performing Organization Address [facility] de Phone Number [address] [address] * CBC W/O DIFFERENTIAL (12/28/2021 10:03 AM CDT) Only the most recent of5 resultswithin the time period is included. Pathologist [facility] White Blood Cell Count 4.6 3.8 - 10.8 Thousand/u L [facility] RBC 5.07 4.20 - 5.80 Million/uL [facility] Hemoglobin 15.1 13.2 - 17.1 g/dL [facility] Hematocrit 44.8 38.5 - 50.0 % [facility] MCV 88.4 80.0 - 100.0 fL [facility] MCH 29.8 27.0 - 33.0 pg [facility] MCHC 33.7 32.0 - 36.0 g/dL [facility] RDW 12.6 11.0 - 15.0 % [facility] Platelet Count 158 140 - 400 Thousand/u L [facility] MPV 10.5 7.5 - 12.5 fL [facility] Comment: Test Performed at: [facility] [employer] [address] [place] ??[phone] LOU JULES DO,MPH 12/28/2021 10:0 3 AM CDT 12/28/2021 10:04 AM CDT Tadeo Babin MD LAB - HEMATOLOGY ORD ERABLES Performing Organization Address [facility] Co de Phone Number [facility] [address] [place] [address] * IGG BLOOD (12/28/2021 10:03 AM CDT) IgG 974 600 - 1640 mg/dL [facility] Comment: Test Performed at: [facility] [address] [place], [place] ??[phone] LOU JULES DO,MPH 12/28/2021 10:0 3 AM CDT 12/28/2021 10:04 AM CDT Tadeo Babin MD LAB - CHEMISTRY ORDE RABLES Performing Organization Address [facility] de Phone Number [facility] [address] [place] [address] * FL LIVER ELASTOGRAPHY (08/12/2021 8:53 AM CDT) Narrative Juan J Bacon MD - 08/12/2021 8:53 AM CDT Juan J Bacon MD ? 08/13/2021 ??5:51 PM Diagnosis: KIERSTEN RN verified patient has no implanted devices and NPO for prior 3 hours. Procedure explained and consent signed. Date of Exam: 08/12/2021 Liver Stiffness: (LSM, kPa) median: ??6.9 IQR (interquartile range): ?? 0.8 IQR/Median% (ideally < 30%): ??12 CAP (controlled attenuation parameter): ??375 Technical Difficulty: None Ordering Provider: Tadeo Babin MD Phone Fax Fibroscan interpretation: I have personally reviewed the Fibroscan report and associated tracings. The calculated Liver Stiffness Measurement (LSM, kPa) indicates that: The probability of advanced liver fibrosis is: low. The loss of ultrasound signal, (controlled attenuation parameter, CAP [dB/m]), indicates that the probability of hepatic steatosis is: high. Juan J Bacon MD The following criteria are used to indicate the probability of advanced (stage 3-4) fibrosis: < 7.0 kPa: low 7.0-8.9 kPa: low to moderate 9.0-14.9 kPa: moderate 15-20 kPa: high > 20 kPa: very high Liver stiffness > 20 kPa is also associated with a high probability of complications of portal hypertension including varices and ascites. Liver stiffness > 50 kPa is associated with a high risk of variceal bleeding. These interpretations are based on the following published data: Ang PJ, Ingrid M, Irene M, et al. Accuracy of FibroScan controlled attenuation parameter and liver stiffness measurement in assessing steatosis and fibrosis in patients with nonalcoholic fatty liver disease. Gastroenterology 2019;156:1154-8636. Abena MS, Jose R, Van Natta ML, et al. Vibration-controlled transient elastography to assess fibrosis and steatosis in patients with nonalcoholic fatty liver disease. Clin Gastroenterol Hepatol 2019;17:156-163. Note: 1. Fibroscan cannot reliably identify earlier stages of fibrosis (ie distinguish F0 from F1 and F2) and thus a histologic stage cannot be predicted from the Fibroscan reading. 2. Assessing the likelihood of advanced fibrosis in patients with indeterminate liver stiffness measurement (LSM) by Fibroscan (e.g., 8-15 kPa) can be improved by also calculating the FIB4 score (Srinathe et al. Hepatology Communications 2019;3:3093-7226) or NAFLD Fibrosis score (Luis et al. Clinical Gastroenterology and Hepatology 2019;17:5116-1742. from routine clinical data. 3. Liver stiffness can be increased by factors other than fibrosis including passive congestion, infiltrative processes, active alcoholism, biliary obstruction and marked inflammation. The interpretation of the Fibroscan result provided above may not have taken such clinical factors into account. Disease etiology also influences Fibroscan cutoff values for fibrosis stages and the following cutoffs have been proposed (Brie et al, Clin Gastro Hepatol 2015; 13:27-36): Cutoffs for Stage 3 and Stage 4 fibrosis respectively: Hepatitis B: >9 and >11.7 kPa Hepatitis C: >9.5 and >12.5 kPa HCV-HIV: >11 and >14 kPa Cholestatic liver diseases: >10 and >17.9 kPa NAFLD/GRAFF: >10 and >14 kPa CAP estimates of steatosis: normal <200 dB/m mild 200 to 250 dB/m moderate 250-290 dB/m substantial > 290 dB/m (Note that Fibroscan is not a quantitative measure of liver fat.) These criteria are estimates and may change as additional supporting data becomes available. [email or web address] Tadeo Babin MD PROCEDURE/MINOR SURG ICAL ORDERABLES * BASIC METABOLIC PANEL (CALCIUM TOTAL) (03/23/2020 12:03 PM RADIAL DRILL PRESS SET UP OPERATOR) Glucose 93 65 - 99 mg/dL [facility] Comment: ? Fasting reference interval BUN 14 7 - 25 mg/dL [facility] Creatinine 0.81 0.70 - 1.33 mg/dL [facility] Comment: For patients >49 years of age, the reference limit for Creatinine is approximately 13% higher for people identified as -Israeli. eGFR by MDRD 103 > OR = 60 mL/min/1 .73m2 [facility] eGFR by MDRD 119 > OR = 60 mL/min/1 .73m2 [facility] BUN/Creatinine Ratio NOT APPLICABLE 6 - 22 (calc) [facility] Sodium 144 135 - 146 mmol/L [facility] Potassium 3.5 3.5 - 5.3 mmol/L [facility] Chloride 107 98 - 110 mmol/L [facility] CO2 29 20 - 32 mmol/L [facility] Calcium 9.2 8.6 - 10.3 mg/dL [facility] Comment: Test Performed at: [employer] [address] [place], [place] ??[phone] LOU JULES DO,MPH 03/23/2020 12:0 3 PM RADIAL DRILL PRESS SET UP OPERATOR 03/23/2020 12:03 PM RADIAL DRILL PRESS SET UP OPERATOR Tadeo Babin MD LAB - CHEMISTRY ISHMAEL CHAMPAGNE Performing Organization Address [facility] de Phone Number [facility] [address] [place] [address] * (ABNORMAL) HEPATIC FUNCTION PANEL (03/23/2020 12:03 PM RADIAL DRILL PRESS SET UP OPERATOR) Protein Total 6.3 6.1 - 8.1 g/dL [facility] Albumin 4.0 3.6 - 5.1 g/dL [facility] Globulin Total 2.3 1.9 - 3.7 g/dL (calc) [facility] Albumin/Globulin Ratio 1.7 1.0 - 2.5 (calc) [facility] Bilirubin Total 0.7 0.2 - 1.2 mg/dL [facility] Bilirubin Direct 0.1 < OR = 0.2 mg/dL [facility] Bilirubin Indirect 0.6 0.2 - 1.2 mg/dL (calc) [facility] Alkaline Phosphatase 60 35 - 144 U/L [facility] AST 48(H) 10 - 35 U/L [facility] ALT 92(H) 9 - 46 U/L [facility] Comment: Test Performed at: [employer] [place], [place] ??[phone] OLU JULES DO,MPH 03/23/2020 12:0 3 PM RADIAL DRILL PRESS SET UP OPERATOR 03/23/2020 12:03 PM RADIAL DRILL PRESS SET UP OPERATOR Tadeo Babin MD LAB - CHEMISTRY ISHMAEL CHAMPAGNE Performing Organization Address [facility] de Phone Number [facility] [address] [place] [address] * (ABNORMAL) IRON + TIBC PANEL (03/23/2020 12:03 PM RADIAL DRILL PRESS SET UP OPERATOR) Pathologist [facility] Iron 179 50 - 180 mcg/dL [facility] TIBC 292 250 - 425 mcg/dL (calc) [facility] % Saturation 61(H) 20 - 48 % (calc) [facility] Comment: Test Performed at: [employer] [address] [place], [place] ??[phone] LOU JULES DO,MPH 03/23/2020 12:0 3 PM RADIAL DRILL PRESS SET UP OPERATOR 03/23/2020 12:03 PM RADIAL DRILL PRESS SET UP OPERATOR Tadeo Babin MD LAB - CHEMISTRY ISHMAEL CHAMPAGNE Performing Organization Address [facility]/ZIP Co de Phone Number [facility] [address] [place] [address] * GGT (03/23/2020 12:03 PM RADIAL DRILL PRESS SET UP OPERATOR) GGT 35 3 - 95 U/L [facility] Comment: Test Performed at: [employer] [address] [place], [place] ??[address] LOU JULES DO,MPH 03/23/2020 12:0 3 PM RADIAL DRILL PRESS SET UP OPERATOR 03/23/2020 12:03 PM RADIAL DRILL PRESS SET UP OPERATOR Tadeo Babin MD LAB - CHEMISTRY ORDAlex KATYAHIRA Performing Organization Address [facility] Co de Phone Number [facility] [address] [place] [address] * PROC FIBROSCAN (02/07/2020 2:14 PM CDT) Narrative Juan J Bacon MD - 02/07/2020 2:14 PM CDT Juan J Bacon MD ? 02/07/2020 ??2:36 PM Diagnosis: GRAFF RN verified patient has no implanted devices and NPO for prior 3 hours. Vital signs taken, procedure explained and consent signed. Date of Exam: 02/07/2020 Liver Stiffness: (LSM, kPa) median: ??5.4 IQR (interquartile range): ?? 0.8 IQR/Median% (ideally < 30%): ??15 CAP (controlled attenuation parameter): ??372 Technical Difficulty: None Ordering Provider: Talya Phone Fax Fibroscan interpretation: I have personally reviewed the Fibroscan report and associated tracings. The calculated Liver Stiffness Measurement (LSM, kPa) indicates that: The probability of advanced liver fibrosis is: low. The loss of ultrasound signal, (controlled attenuation parameter, CAP [dB/m]), indicates that the probability of hepatic steatosis is: high. Juan J Bacon MD The following criteria are used to indicate the probability of advanced (stage 3-4) fibrosis: < 7.0 kPa: low 7.0-8.9 kPa: low to moderate 9.0-14.9 kPa: moderate 15-20 kPa: high > 20 kPa: very high Liver stiffness > 20 kPa is also associated with a high probability of complications of portal hypertension including varices and ascites. Liver stiffness > 50 kPa is associated with a high risk of variceal bleeding. These interpretations are based on the following published data: Ang PJ, Ingrid M, Irene M, et al. Accuracy of FibroScan controlled attenuation parameter and liver stiffness measurement in assessing steatosis and fibrosis in patients with nonalcoholic fatty liver disease. Gastroenterology 2019;156:6358-7717. Abena MS, Jose R, Van Valeria ML, et al. Vibration-controlled transient elastography to assess fibrosis and steatosis in patients with nonalcoholic fatty liver disease. Clin Gastroenterol Hepatol 2019;17:156-163. Note: 1. Fibroscan cannot reliably identify earlier stages of fibrosis (ie distinguish F0 from F1 and F2) and thus a histologic stage cannot be predicted from the Fibroscan reading. 2. Assessing the likelihood of advanced fibrosis in patients with indeterminate liver stiffness measurement (LSM) by Fibroscan (e.g., 8-15 kPa) can be improved by also calculating the FIB4 score (Srinathe et al. Hepatology Communications 2019;3:5059-0077) or NAFLD Fibrosis score (Luis et al. Clinical Gastroenterology and Hepatology 2019;17:1303-1547. from routine clinical data. 3. Liver stiffness can be increased by factors other than fibrosis including passive congestion, infiltrative processes, active alcoholism, biliary obstruction and marked inflammation. The interpretation of the Fibroscan result provided above may not have taken such clinical factors into account. Disease etiology also influences Fibroscan cutoff values for fibrosis stages and the following cutoffs have been proposed (Brie et al, Clin Gastro Hepatol 2015; 13:27-36): Cutoffs for Stage 3 and Stage 4 fibrosis respectively: Hepatitis B: >9 and >11.7 kPa Hepatitis C: >9.5 and >12.5 kPa HCV-HIV: >11 and >14 kPa Cholestatic liver diseases: >10 and >17.9 kPa NAFLD/GRAFF: >10 and >14 kPa CAP estimates of steatosis: normal <200 dB/m mild 200 to 250 dB/m moderate 250-290 dB/m substantial > 290 dB/m (Note that Fibroscan is not a quantitative measure of liver fat.) These criteria are estimates and may change as additional supporting data becomes available. [email or web address] Tadeo Babin MD PROCEDURE/MINOR SURG ICAL ORDERABLES * (ABNORMAL) HEMOCHROMATOSIS MUTATION PANEL (07/22/2016 2:45 PM RADIAL DRILL PRESS SET UP OPERATOR) Hemochromatosis Genotype Accession No: [id number] Specimen: Peripheral Blood Reference: [id number] Test: Hemochromatosis Genotyping RESULT Hemochromatosis Genotyping C282Y Wild-Type Allele: ?Detected Mutant Allele: ? Detected Patient Result: ? C282Y/wt H63D Wild-Type Allele: ?Detected Mutant Allele: ? Detected Patient Result: ?H63D/wt Reference Range: ? wt/wt Composite Genotype: ?Compound Heterozygote Both mutant and wild-type sequences were detected at both the C282Y and H63D positions of HFE. 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 INTERPRETATION DNA was isolated from the specimen and analyzed by a PCR-amplification refractory mutation system (Jesús Ch et al: J Clin Pathol 51:73-74) to detect the G to A and C to G changes at nucleotide position 845 (845G>A) and 187 (187C>G) of the HFE gene, respectively. ??These alterations result in a Cysteine to Tyrosine change at position 282 (C282Y) and a Histidine to Aspartic Acid at amino acid 63 (H63D). Both mutant and wild-type sequences are detected at the H63D and C282Y positions. This test was developed and its performance characteristics determined by the [facility] Diagnostic Laboratory at [facility]. It has not been cleared or approved by the U.S. Food and Drug Administration. The FDA has determined that such clearance or approval is not necessary. This test is used for clinical purposes. It should not be regarded as investigational or for research. This laboratory is certified under the Clinical Laboratory Improvement Amendments of 1988 (CLIA-88) as qualified to perform high complexity clinical laboratory testing. Test performed at [facility], [address] [place] [address] ??[id number] This case has been personally reviewed and interpreted by the attending (teaching) pathologist. Final Diagnosis performed by Sylvia Plunkett MD. Electronically signed 07/25/2016(A) [facility] ([place]) Blood specimen (specimen) BLOOD SPECIMEN / Unknown 07/22/2016 2:45 PM RADIAL DRILL PRESS SET UP OPERATOR 07/22/2016 2:53 PM RADIAL DRILL PRESS SET UP OPERATOR Arik Lipscomb MD LAB - CHEMISTRY ISHMAEL CHAMPAGNE Performing Organization Address City/[facility]/ZIP Co de Phone Number [facility] ([place]) * PT-INR [facility] (07/22/2016 2:45 PM RADIAL DRILL PRESS SET UP OPERATOR) PT 13.6 12.1 - 14.8 Seconds [facility] INR 1.1 See Comment [facility] Comment: Suggested therapeutic range for low-intensity coumadin therapy for venous thromboembolism prophylaxis is an INR of 2.0-3.0. ??For high risk patients (Mitral Valve Prosthesis, Atrial Fibrillation, history of TIA/stroke), suggested prophylactic therapeutic range is an INR of 2.5-3.5. Blood specimen (specimen) BLOOD SPECIMEN / Unknown 07/22/2016 2:45 PM RADIAL DRILL PRESS SET UP OPERATOR 07/22/2016 2:54 PM RADIAL DRILL PRESS SET UP OPERATOR Narrative [facility] - 07/22/2016 3:10 PM RADIAL DRILL PRESS SET UP OPERATOR Is patient on Heparin, Argatroban or Dabigatran?->N Arik Lipscomb MD LAB - COAGULATION OR DERABLES Performing Organization Address City/[facility]/ZIP Co de Phone Number [address] [phone] * DAIJA BLOOD SCREEN (07/22/2016 2:45 PM RADIAL DRILL PRESS SET UP OPERATOR) DAIJA None Detected None Detected [facility] Venous blood specimen (specimen) 07/22/2016 2:45 PM RADIAL DRILL PRESS SET UP OPERATOR 07/22/2016 2:52 PM RADIAL DRILL PRESS SET UP OPERATOR Arik Lipscomb MD LAB - CHEMISTRY ISHMAEL CHAMPAGNE [address] [phone] * MITOCHONDRIAL ANTIBODY SCREEN (07/22/2016 2:45 PM RADIAL DRILL PRESS SET UP OPERATOR) Pathologist [facility] Mitochondrial M2 Antibody 10.4 0.0 - 20.0 Units [facility] Comment: Mitochondrial M2 Antibody Numeric Result Interpretation: ?<20.1 Units: ??Negative ?20.1 - 24.9 Units: ??Equivocal ?>24.9 Units: ??Positive ? Blood specimen (specimen) BLOOD SPECIMEN / Unknown 07/22/2016 2:45 PM RADIAL DRILL PRESS SET UP OPERATOR 07/22/2016 2:53 PM RADIAL DRILL PRESS SET UP OPERATOR Arik Lipscomb MD LAB - CHEMISTRY ISHMAEL CHAMPAGNE Performing Organization Address [facility] de Phone Number [address] [phone] * [id number] BLOOD PHENOTYPING PANEL (07/22/2016 2:45 PM RADIAL DRILL PRESS SET UP OPERATOR) Pathologist [facility] Olciw-[id number]-Jnzpepzghi n 137 90 - 200 mg/dL [facility] (BEAKER) Phenotype (PI) MM [facility] ([facility]ER) Comment: ? Phenotype ?? Population ?A-1-AT Concentration ? Incidence % ?Reference Interval ? MM ?86.5% ?96 - 189 ? MS ? 8.0% ?83 - 161 ? MZ ? 3.9% ?60 - 111 ? FM ? 0.4% ?93 - 191 ? SZ ? 0.3% ?42 - ??75 ? SS ? 0.1% ?62 - 119 ? ZZ ? 0.05% ? 16 - ??38 ? FS ? 0.05% ? 70 - 128 ? FZ ?Unknown ?44 - ??88 ? FF ?Unknown ?Unknown Blood specimen (specimen) BLOOD SPECIMEN / Unknown 07/22/2016 2:45 PM RADIAL DRILL PRESS SET UP OPERATOR 07/22/2016 2:53 PM RADIAL DRILL PRESS SET UP OPERATOR Narrative [facility] - 07/25/2016 3:16 PM RADIAL DRILL PRESS SET UP OPERATOR Performed at: ??01 - [facility] [address] ??[id number] Pocket Cutter: Braxton Obregon PhD, Phone: ??[phone] Performed at: ??02 - [facility] ??[id number] Pocket Cutter: Lou Cedeno MD, Phone: ??[phone] Arik Lipscomb MD LAB - CHEMISTRY ISHMAEL CHAMPAGNE [facility]) * CERULOPLASMIN (07/22/2016 2:45 PM RADIAL DRILL PRESS SET UP OPERATOR) Ceruloplasmin 23 20 - 60 mg/dL [facility] Blood specimen (specimen) BLOOD SPECIMEN / Unknown 07/22/2016 2:45 PM RADIAL DRILL PRESS SET UP OPERATOR 07/22/2016 2:54 PM RADIAL DRILL PRESS SET UP OPERATOR Arik Lipscomb MD LAB - CHEMISTRY ORDE IHSAN Performing Organization Address [facility] de Phone Number [address] [phone] * SMOOTH MUSCLE ANTIBODY (07/22/2016 2:45 PM RADIAL DRILL PRESS SET UP OPERATOR) F-Actin Antibody IgG 19.4 0.0 - 19.9 Units [facility] Comment: F-Actin Antibody Numeric Result Interpretation: ?<20.0 Units: ??Negative ?20.0 - 30.0 Units: ??Weak Positive ?>30.0 Units: ??Moderate to Strong Positive ? Blood specimen (specimen) BLOOD SPECIMEN / Unknown 07/22/2016 2:45 PM RADIAL DRILL PRESS SET UP OPERATOR 07/22/2016 2:53 PM RADIAL DRILL PRESS SET UP OPERATOR Arik Lipscomb MD LAB - SEROLOGY ORDER MAHAD Performing Organization Address [facility] de Phone Number [address] [phone] * HEPATITIS B SURFACE ANTIBODY (07/22/2016 2:45 PM RADIAL DRILL PRESS SET UP OPERATOR) Hepatitis B Virus Surface Antibody Non-react darling Non-react darling [facility] Comment: < 8 mIU/mL Hepatitis B surface Antibody (HBsAb). Nonreactive for HBsAb - individual is considered not immune to Hepatitis B Virus infection. Hepatitis B Surface Antibody Quantitative 6.9 <8.0 mIU/mL [facility] Comment: Hepatitis B Surface Antibody Numeric Result Interpretation: ? Nonreactive: ?<8.0 mIU/mL ? Indeterminate: ??8.0 - 12.0 mIU/mL ? Reactive: ?>12.0 mIU/mL ? Blood specimen (specimen) BLOOD SPECIMEN / Unknown 07/22/2016 2:45 PM RADIAL DRILL PRESS SET UP OPERATOR 07/22/2016 2:54 PM RADIAL DRILL PRESS SET UP OPERATOR Arik Lipscomb MD LAB - CHEMISTRY ISHMAEL CHAMPAGNE Performing Organization Address [facility] Co de Phone Number [address] [phone] * HEPATITIS B CORE ANTIBODY (07/22/2016 2:45 PM RADIAL DRILL PRESS SET UP OPERATOR) HBc Antibody Total Non-reacti ve Non-reacti ve [facility] Blood specimen (specimen) BLOOD SPECIMEN / Unknown 07/22/2016 2:45 PM RADIAL DRILL PRESS SET UP OPERATOR 07/22/2016 2:54 PM RADIAL DRILL PRESS SET UP OPERATOR Arik Lipscomb MD LAB - CHEMISTRY ISHMAEL CHAMPAGNE Performing Organization Address [facility] de Phone Number [address] [phone] * HEPATITIS B SURFACE ANTIGEN W RFLX CONFIRMATION (07/22/2016 2:45 PM RADIAL DRILL PRESS SET UP OPERATOR) Hepatitis B Virus Surface Antigen Non-reacti ve Non-reacti ve [facility] Blood specimen (specimen) BLOOD SPECIMEN / Unknown 07/22/2016 2:45 PM RADIAL DRILL PRESS SET UP OPERATOR 07/22/2016 2:54 PM RADIAL DRILL PRESS SET UP OPERATOR Arik Lipscomb MD LAB - CHEMISTRY ISHMAEL CHAMPAGNE Performing Organization Address [facility] Co de Phone Number [address] [phone] * HEPATITIS C ANTIBODY (07/22/2016 2:45 PM RADIAL DRILL PRESS SET UP OPERATOR) Hepatitis C Antibody Non-react darling Non-reac tive [facility] Comment: Hepatitis C Antibody screen indicates no serologic evidence of past or current infection with Hepatitis C Virus. Patients with unexplained liver disease who are immunocompromised or suspected of having acute Hepatitis C infection may benefit from Nucleic Acid Test (FABY) for Hepatitis C Viral RNA to confirm Hepatitis C status. Blood specimen (specimen) BLOOD SPECIMEN / Unknown 07/22/2016 2:45 PM RADIAL DRILL PRESS SET UP OPERATOR 07/22/2016 2:54 PM RADIAL DRILL PRESS SET UP OPERATOR Arik Lipscomb MD LAB - CHEMISTRY ISHMAEL CHAMPAGNE [address] [phone] * HEPATITIS A ANTIBODY (07/22/2016 2:45 PM RADIAL DRILL PRESS SET UP OPERATOR) Hepatitis A Virus Antibody Total Negative Negative [facility] ([facility]AK[facility]) Blood specimen (specimen) 07/22/2016 2:45 PM RADIAL DRILL PRESS SET UP OPERATOR 07/22/2016 2:53 PM RADIAL DRILL PRESS SET UP OPERATOR Narrative [facility] ([facility]) - 07/23/2016 7:14 AM RADIAL DRILL PRESS SET UP OPERATOR Performed at: ??01 - [facility] [address] ??[id number] Pocket Cutter: Braxton Obregon PhD, Phone: ??[phone] Arik Lipscomb MD LAB - CHEMISTRY ISHMAEL CHAMPAGNE [facility] (BEAKER) Care Teams Biomass Boiler Operator Relationship Specialty Start Date End Date Aditi Stark, LIMNOLOGIST-AUTO DAMAGE ADJUSTER [address] [facility], [address] [place] [address] PCP - General Nurse Practitioner 12/08/22
--- OUTSIDE RECORDS SUMMARY | 2024-06-09 21:53 | XMS_ITS | Encounter Summary ---
Author Organization [facility] Address [address] [facility] [address] [place] [address] Care Team Providers Care Warehouse Pricing And Inventory Clerk Name Role Phone Lawson Mathew MD Primary Care Provider Unavailable Shannon Carr MD Primary Care Provider Un available Aditi Stark [facility] Primary Care Provider + Encounter Details Date Type Department Care Team (Late st Contact Info) Description 06/27/2010 Abstract [facility] Conversion Whit Zamarripa, MAGNO [address] [address] Social History Tobacco Use Types Packs/Day Years Used Date Smoking Tobacco: Never Assessed Sex and Gender Information Value Date Recorded Sex Assigned at Not on file Legal Sex Male 7:57 PM CDT Gender Identity Male 08/12/2021 1:26 PM CDT Sexual Orientation Straight 08/12/2021 1: 26 PM CDT documented as of this encounter Miscellaneous Notes * Letter - Whit Zamarripa NP - 06/27/2010 12:00 AM CST Patient Name: YESI CHAVEZ : 1970 .0 Date: 06/27/2010 Spoke to pt on the phone 06/26/2010 @ 8120. Pt stated he is feeling better, but still has a nagging cough. Stated did try some tyl/codeine, but that did not stop his cou gh at all. Review of his medications showed he is on lisinopril. Discussed with Dr. Stanley, and pt was changed to metoprolol 50mg qd. Pt verbalized understanding. He is to f/u in 2-3 weeks for a BP check. Dictated By: Whit Zamarripa CNP SETTER documented in this encounter Plan of Treatment Upcoming Encounters Date Type Department Care Team (Late st Contact Info) Description 10/20/2024 7:20 AM CDT Office Visit [facility] [address] [facility] [address] Aditi Strak [facility] [address], [address] [place] [address] 05/03/2025 8:00 AM TILE SETTER Appointment [facility] [address] [facility] [place] [address] Aditi Stark [facility] [address], [address] [place] [address] documented as of this encounter Visit Diagnoses Not on filedocumented in this encounter Care Teams Warehouse Pricing And Inventory Clerk Relationship Specialty Start Date End Date Lawson Mathew MD PCP - General FAMILY PRACTICE 04/27/18 05/04/18 Shannon Carr MD PCP - General INTERNAL MEDICINE 05/05/18 05/13/20 Aditi Stark [facility] [address], [address] [place] [address] PCP - General NURSE PRACTITIONER 05/14/20 documented as of this encounter
--- OUTSIDE RECORDS SUMMARY | 2024-06-09 21:53 | XMS_ITS | Encounter Summary ---
Author Organization [facility] Address [address] [facility] [address] [place] [address] Care Team Providers Care Oral And Maxillofacial Surgeon Name Role Phone Lawson Mathew MD Primary Care Provider Unavailable Shannon Carr MD Primary Care Provider Un available Aditi Stark [facility] Primary Care Provider + Encounter Details Date Type Department Care Team (Late Contact Info) Description 10/04/2009 Abstract [facility] Clin[facility] Conversion , Generic Conversion, Social [...] Description 10/20/2024 7:20 AM CDT Office Visit [facility] [address] [place] [address] Aditi Stark, [facility] [address] [facility], [address] [place] [address] 05/03/2025 8:00 AM MAINSTREAMING FACILITATOR Appointment [facility] [address] [place] [address] Aditi Stark, [facility] [address] [facility], [address] [place], [place] [phone] documented as of this encounter Visit Diagnoses Not on filedocumented in this encounter Care Teams Oral And Maxillofacial Surgeon Relationship Specialty Start Date End Date Lawson Mathew MD PCP - General FAMILY PRACTICE 04/27/18 05/04/18 Shannon Carr MD PCP - General INTERNAL MEDICINE 05/05/18 05/13/20 Aditi Stark, [facility] [address] [facility], [address] [place] [address] PCP - General NURSE PRACTITIONER 05/14/20 documented as of this encounter
--- OUTSIDE RECORDS SUMMARY | 2024-06-09 21:53 | XMS_ITS | Encounter Summary ---
Author Organization [facility] Address [address] [facility] [place] [address] [place] [address] Care Team Providers Care Antique Finisher Name Role Phone Lawson Mathew MD Primary Care Provider Unavailable Shannon Carr MD Primary Care Provider Un available Aditi Stark [facility] Primary Care Provider + Encounter Details Date Type Department Care Team (Late Contact Info) Description 09/26/2009 Abstract [facility] Conversion , Generic Conversion, Social History [...] Description 10/20/2024 7:20 AM CDT Office Visit [facility] [address] [place] [phone] Aditi Stark, [facility] [address] [facility], [address] [place] [address] 05/03/2025 8:00 AM PSYCHOLOGY INTERN Appointment [facility] [address] [place] [address] Aditi Stark, [facility] [address] [facility], [address] [place], [place] [phone] documented as of this encounter Visit Diagnoses Not on filedocumented in this encounter Care Teams Antique Finisher Relationship Specialty Start Date End Date Lawson Mathew MD PCP - General FAMILY PRACTICE 04/27/18 05/04/18 Shannon Carr MD PCP - General INTERNAL MEDICINE 05/05/18 05/13/20 Aditi Stark, [facility] [address] [facility], [address] [place] [address] PCP - General NURSE PRACTITIONER 05/14/20 documented as of this encounter
--- OUTSIDE RECORDS SUMMARY | 2024-06-09 21:53 | XMS_ITS | Clinical Summary ---
Author Organization [address] Address [address] [place] [address] Care Team Providers Care Estimator Printing Plate Making Name Role Phone Fahad Stanley MD Primary Care Provider [phone] Allergies Active Allergy Reactions Criticality Noted Date [...] 11/12/2021 Assessment & Plan (05/05/2024 3:01 PM TOBACCO ACREAGE MEASURER): The patient continues to benefit from CPAP [...] year. Assessment & Plan (05/07/2023 3:46 PM TOBACCO ACREAGE MEASURER): The patient continues to benefit from CPAP at 16 cm water pressure for ongoing symptoms SEVERO. His DME supplier is [employer]. He will follow up here in 1 year. Assessment & Plan (05/06/2022 3:32 PM TOBACCO ACREAGE MEASURER): The patient continues to benefit from CPAP at 16 cm water pressure. His DME supplier is [employer]. He will follow-up with me in 1 year. Assessment & Plan (11/12/2021 3:45 PM CDT): I did order the patient new CPAP set at 16 cm water pressure while sleeping. His DME is [facility]. Encounters Date Type Department Care Team Description 05/05/2024 3:00 PM TOBACCO ACREAGE MEASURER Office Visit [facility] Medical [facility] [address] [address] Lex Thompson MD Obstructive sleep apnea (Primary Dx) 05/05/[address] [facility] [address] [address] Lex Thompson MD Orders Only from Last 3 Months Social History Tobacco Use Types Packs/Day Years Used Date Smoking Tobacco: Never Tobacco Cessation:Counseling Given: Not Answered Sex and Gender Information Value Date Recorded Sex Assigned at Not on file Legal Sex Male 8:43 PM TOBACCO ACREAGE MEASURER Gender Identity Not on file Sexual Orientation Not on file Obstetrics History Last Filed Vital Signs Vital Sign Reading Time Taken Comments Blood Pressure 118/70 05/05/2024 2:42 PM TOBACCO ACREAGE MEASURER Pulse 64 05/05/2024 2:42 PM TOBACCO ACREAGE MEASURER Temperature 36.3 ??C (97.4 ??F) 05/05/2024 2:42 PM CS T Respiratory Rate 18 05/05/2024 2:42 PM TOBACCO ACREAGE MEASURER Oxygen Saturation 97% 05/05/2024 2:42 PM TOBACCO ACREAGE MEASURER Inhaled Oxygen Concentration - - Weight 124.3 kg (274 lb) 05/05/2024 2:42 PM TOBACCO ACREAGE MEASURER Height 185.4 cm (6' 1 ) 05/05/2024 2:42 PM TOBACCO ACREAGE MEASURER Body Mass Index 36.15 05/05/2024 2:42 PM TOBACCO ACREAGE MEASURER Plan of Treatment Health Maintenance Due Date Last Done Comments Colon Cancer Screening-Colonoscopy 1968 Depression Screening 1968 Hepatitis C Screening 1968 Prostate Cancer Screening-PSA 1968 Hepatitis B Screening 1986 Regular Well Visit/Exam 18-64 1986 Pneumococcal vaccine <65 (2 of 2 - PCV) 06/10/2013 06/10/2012 Zoster Vaccine (1 of 2) 2018 DTaP/Tdap/Td Vaccine (2 - Td or Tdap) 10/30/2020 10/30/2010 Covid-19 Vaccine (4 - 2023-2 5 season) 2024 03/22/2021, 06/12/2020, 05/15/2020 Influenza Vaccine (#1) 2024 , 03/11/2021, 04/19/2019, Additional history exists Insurance [facility] OOS Care Teams Estimator Printing Plate Making Relationship Specialty Start Date End Date Fahad Stanley MD [address] [place] [address] PCP - General 06/21/20
--- OUTSIDE RECORDS SUMMARY | 2024-06-09 21:53 | XMS_ITS | Clinical Summary ---
Author Organization [facility] Address [address] [place] [address] Care Team Providers Care Production Boring Machine Operator Name Role Phone Unavailable Primary Care Provider Unavailabl e Immunizations Immunization Administration Dates Next Due Covid-19, Mrna, Lnp-s, PF, 1 00 mcg/0.5 mL Dose (Moderna) 03/22/2021 Social History Tobacco Use Types Packs/Day Years Used Date Smoking Tobacco: Never Assessed Sex and Gender Information Value Date Recorded Sex Assigned at Not on file Legal Sex Male 2:19 PM CDT Gender Identity Not on file Sexual Orientation Not on file Plan of Treatment Health Maintenance Due Date Last Done Comments Hepatitis C Virus (HCV) Screening 1968 Hepatitis B Immunization (1 of 3 - 19+ 3-dose series) 1987 Colonoscopy 2013 Colorectal Cancer Screening 2013 Cologuard 2018 Immunochemical Fecal Occult Blood 2018 Pneumococcal Immunization (5 0+ years) (2 of 2 - PCV) 2018 06/10/2012 Zoster Immunization (1 of 2) 2018 PSA Discussion 2023 Influenza Immunization (#1) 01/17/202402/16, 04/19/2019, 03/23/2001 SARS-COV-2 Immunization ( season) 2024 03/22/2021, 06/12/2020, 05/15/2020 Respiratory Syncytial Virus (RSV) Immunization (Adult) (1 - 1-dose 75+ series) 2043 DTaP/Tdap/Td Immunization Discontinued 10/30/2010 TdaP Immunization Completed 10/30/2010 Pneumococcal Immunization Combined Discontinued 06/10/2012 Meningococcal Immunization (ACWY) Aged Out No longer eligible based on patient's age to complete this topic Rotavirus Immunization Aged Out No lo nger eligible based on patient's age to complete this topic
--- OUTSIDE RECORDS SUMMARY | 2024-06-09 21:53 | XMS_ITS | Encounter Summary ---
Author Organization [facility] Address [facility] [facility] [place] [address] [place] [address] Care Team Providers Care Inspector And Sorter Name Role Phone Aditi Stark [facility] Primary Care Provider + Encounter Details Date Type Department Care Team (Latest Contact Info) Description 06/06/2024 Scan HEALTH INFO SRVCS Scanned, Doc Med Group Social History Tobacco Use Types Packs/Day Years Used Date Smoking Tobacco: Never Smokeless Tobacco: Never Alcohol Use Standard Drinks/Week Comments Yes 3.3 [...] Description 10/20/2024 7:20 AM CDT Office Visit [address] [address] Aditi Stark, [facility] [address] [facility], [address] [place] [address] 05/03/2025 8:00 AM TRUCK RENTAL MANAGER Appointment [facility] [address] [place] [address] Aditi Stark [facility] [address] [facility], [address] [place] [address] documented as of this encounter Visit Diagnoses Not on filedocumented in this encounter Additional Health Concerns Assessment Noted Time PHQ-9 Depression Total Score: 0 08/14/19 22 3:56 PM CDT documented as of this encounter Care Teams Inspector And Sorter Relationship Specialty Start Date End Date Aditi Stark, [facility] [address] [facility], [address] [place] [address] PCP - General NURSE PRACTITIONER 05/14/20 documented as of this encounter
== END 2024-06-08 08:25 | disposition home or self-care (01) ==
LOC: ANHSURGERY 08:34
PROVIDERS: Visit Provider Urology
DX: N20.0 Calculus of kidney (principal); I10 Essential (primary) hypertension
CPT/HCPCS: 36415; 85610; 85730; 87086; 93005

== ENCOUNTER 2024-06-17 01:21 | Day surgery (SDC) | payer BC, SELFPAY ==
[2024-06-07 13:21] VITALS: BMI 36.3
--- NOTE | 2024-06-07 13:32 | SUR.PREOP ---
Report to the Outpatient Waiting Room, entrance under the green pavilion located off [facility], at time 6:00a.m. on date 7:30a.m. Planned Procedure Time: 06/17/2024.? Time changes happen often and if your time is changed the preop area will call you the afternoon before. - You and your visitor will be asked to self-screen and do not enter if you have any COVID symptoms. Please call surgeon if you need to reschedule. - A mask is optional within the hospital at this time. Patients may have clear liquids (water, carbonated beverages, clear teas, apple juice) until 3 (4:30a.m.) hours prior to surgery with a maximum of 20 ounces. - No food from midnight until time of surgery and no smoking. This includes no chewing gum, candy or mints. Take only the following medications with a SIP of water on the morning of surgery: amlodipine, carvedilol, tramadol DO NOT STOP ANY OF YOUR OTHER PRESCRIPTION MEDICATIONS PRIOR TO SURGERY EXCEPT THE FOLLOWING Medications to discontinue per physician Zepbound Date to take last dose 06/07/2024 Please no make-up, nail spanish, hairspray, perfume, deodorant, or body powder the day of surgery.? No jewelry (including any body piercings) or valuables the day of surgery, leave them at home.? Please take a shower or bath the night before, or the morning of, surgery with an antibacterial soap.? Wear comfortable, loose fitting clothing.? Children are encouraged to wear pajamas. - Jewelry must be removed prior to entering the operating room.? Rings and piercings that are not removed may be cut off. - The hospital will not accept responsibility for valuables.? - Please leave all valuables, including medications, at home the day of surgery. If you are going home after surgery, a licensed city driver must drive you home.? - NO public transportation without another adult if you receive anesthesia. - We recommend that an adult stay with you for 24 hours following discharge. - We also recommend that you do not drive, make important decision, drink alcoholic beverages, or take any drugs that were not prescribed by your health care provider for at least 24 hours after your discharge time. For Pediatric surgeries, we recommend two adults accompany the child home. Follow any additional instructions given to you from your surgeon. Telephone instructions given to Conner Chavez and asked if any additional questions and then verbalized understanding. Patient advised to call surgeon office or pre surgery nurse liaison [phone] if any additional questions.
[2024-06-17] VITALS (7 sets, daily range): BP systolic 121–138; BP diastolic 83–104; PULSE 63–73; RESP 14–16; TEMP 36.2–36.5; O2SAT 95–100; BMI 35.7
--- NOTE | ~2024-06-17 | XR_ITS ---
XR abdomen/kub 1V 06/17/2024 06:12 Indication: Preop ESWL Procedure: KUB Comparison: No prior studies for comparison. Findings: There is a calcification overlying the right L4 transverse process, suspicious for ureteral stone. Bowel gas pattern nonobstructive. Lung bases unremarkable. No acute osseous abnormality. Impression: 1: Possible right ureteral stone at the L4 level. Reviewed, dictated and finalized at location A. ING EQUIPMENT INSTALLER Impression: 1: Possible right ureteral stone at the L4 level.
--- OUTSIDE RECORDS SUMMARY | 2024-06-17 01:24 | XMS_ITS | Clinical Summary ---
Author Organization [facility] Address [address] [place] [address] Care Team Providers Care Salon Professional Name Role Phone Unavailable Primary Care Provider [...]
--- OUTSIDE RECORDS SUMMARY | 2024-06-17 01:24 | XMS_ITS | Encounter Summary ---
Author Organization [facility] Address [address] [facility] [place] [address] [place] [address] Care Team Providers Care Leather Staker Name Role Phone Lawson Mathew MD Primary Care Provider Unavailable Shannon Carr MD Primary Care Provider Un available Aditi Stark [facility] Primary Care Provider + Encounter Details Date Type Department Care Team (Late Contact Info) Description 10/11/2009 Abstract [facility] Clinics Conversion , Generic Conversion, Social [...] Description 10/20/2024 7:20 AM CDT Office Visit [facility] [address] [place] [address] Aditi Stark, [facility] [address] [facility], [address] [place] [address] 05/03/2025 8:00 AM COMMISSIONER OF RELOCATION SERVICES Appointment [facility] [address] [place] [address] Aditi Stark, [facility] [address] [facility], [address] [place], [place] [phone] documented as of this encounter Visit Diagnoses Not on filedocumented in this encounter Care Teams Leather Staker Relationship Specialty Start Date End Date Lawson Mathew MD PCP - General FAMILY PRACTICE 04/27/18 05/04/18 Shannon Carr MD PCP - General INTERNAL MEDICINE 05/05/18 05/13/20 Aditi Stark, [facility] [address] [facility], [address] [place] [address] PCP - General NURSE PRACTITIONER 05/14/20 documented as of this encounter
--- OUTSIDE RECORDS SUMMARY | 2024-06-17 01:24 | XMS_ITS | Referral Summary ---
Author Organization [facility] Address [address] [facility] [place] [address] Care Team Providers Care Corset Maker Name Role Phone Aditi Stark Maddie PEPPER Primary Care Provider Source Comments [facility],non-owned Affiliates and Associated Physician Practices is amultiple site organization consisting of ambulatory clinics and hospital sitesin [place], [place], [place] and [place]. This disclosure is being madepursuant to the Care Everywhere program and may not contain all information available regarding this patient. Last updated 18.[facility] Encounters Date Type Department Care Team Description 06/06/2024 Travel 06/06/2024 9:00 AM CHUTE GREASER Office Visit [facility] - [place] [address] [facility], [place] [phone] Brooke Bernard APRN-CNP Metabolic dysfunction-associated steatohepatitis (MASH) (Primary Dx); Hereditary hemochromatosis (HCC) 06/06/2024 7:18 AM CHUTE GREASER - 06/06/2024 11:59 PM CHUTE GREASER Hospital Encounter [facility] [address] [place] [phone] Brooke Bernard, CUSTOMER ENGINEERING SPECIALIST-INSTRUMENT REPAIR SPECIALIST Discharge Disposition: Home or Self Care 04/20/2024 Travel 04/20/2024 2:30 PM CHUTE GREASER Office Visit [facility] [address] [phone] Heladio Luna III, MD Class 2 severe [...] use; Constipation, unspecified constipation type 04/12/2024 Telephone [facility] [address] [phone] Jacob Yao RN Medication Issue 04/11/[address] [place] [address] [phone] Heladio Luna III, MD MEDICATION REFILL from [...] Comments Blood Pressure 132/94 06/06/2024 8:45 AM CHUTE GREASER Pulse 73 06/06/2024 8:45 AM CHUTE GREASER Temperature 36.6 ??C (97.8 ??F) 06/06/2024 8:45 AM CS T Respiratory Rate 18 06/11/2023 9:48 AM CHUTE GREASER Oxygen Saturation 98% 06/06/2024 8:45 AM CHUTE GREASER Inhaled Oxygen Concentration - - Weight 124.2 kg (273 lb 12.8 oz) 06/06/2024 8:45 AM CHUTE GREASER Height 185.4 cm (6' 1 ) 06/06/2024 8:45 AM CHUTE GREASER Body Mass Index 36.12 06/06/2024 8:45 AM CHUTE GREASER Plan of Treatment Upcoming Encounters Date Type Department Care Team (Late st Contact Info) Description 10/26/2024 1:30 PM CDT Office Visit [facility] - [address] [phone] Irene Barron PA-C [address] [facility] [place] [address] 04/26/2025 1:30 PM CHUTE GREASER Office Visit [facility] - [address] [phone] Heladio Luna III, MD [address] [place] [address] [address] [facility] [address] 06/05/2025 8:30 AM CHUTE GREASER Procedure visit [facility] [address] [place] [address], [place] [phone] 06/05/2025 9:00 AM CHUTE GREASER Office Visit [facility] [address] [place] [address], [place] [phone] Brooke Bernard, CUSTOMER ENGINEERING SPECIALIST-INSTRUMENT REPAIR SPECIALIST [address] [place] [address] [address] [place] [address] Goals Goal Patient Goal Type Associated Problems Recent Progress Patient-Stated? Author Medication Management General On track( 024 2:03 PM CHUTE GREASER) Jude Villegas, RN Note: Expected end date: Interventions: Take all medications as prescribed Let your doctor know right away about any changes in your medications Make sure to request a refill of your medication at least one week prior to your last dose Procedures Procedure Name Priority Date/Time Associated Diagnosis Comments US ABDOMEN LIMITED Routine 06/06/2024 8: 10 AM CHUTE GREASER GRAFF (nonalcoholic steatohepatitis) COMPREHENSIVE METABOLIC PANEL Routine 11/13/2023 7:25 AM CDT Obesity, unspecified classification, unspecified obesity type, unspecified whether serious comorbidity present LIPID PROFILE Routine 11/13/2023 7:25 AM CDT Obesity, unspecified classification, unspecified obesity type, unspecified whether serious comorbidity present HEPATITIS C ANTIBODY Routine 07/22/2016 2:45 PM CHUTE GREASER from Last 3 Months or Most Recently Relevant to Health Maintenance Results * US ABDOMEN LIMITED (06/06/2024 8:10 AM CHUTE GREASER) Anatomical Region Laterality Modality Abdomen Ultrasound 06/06/2024 8:20 AM CHUTE GREASER Impressions 06/06/2024 9:31 AM CHUTE GREASER IMPRESSION: 1.Diffuse hepatic steatosis. No notable surface [...] evaluation. > Dictated by Bunny Olmos MD (chairman president and chief executive officer). I, Peg Goldman MD have personally reviewed and interpreted this examination/study. > Interpreting Provider: Peg Goldman MD on 06/06/2024 9:31 AM Narrative 06/06/2024 9:31 AM CHUTE GREASER PROCEDURE: ??US ABDOMEN LIMITED DATE/TIME OF EXAM: [...] evaluation. > Dictated by Bunny Olmos MD (chairman president and chief executive officer). I, Abdjinny Goldman MD have personally reviewed and interpreted this examination/study. > Interpreting Provider: Peg Goldman MD on 59:31 AM Brooke Bernard CUSTOMER ENGINEERING SPECIALIST-INSTRUMENT REPAIR SPECIALIST US ORDERABL ES * (ABNORMAL) COMPREHENSIVE [...] 46 U/L [facility] Comment: Test Performed at: [facility] [address] [place], [place] ??[phone] CHELE CANO MD Blood BLOOD SPECIMEN / Unknown 11/13/2023 7:25 AM CDT 11/13/2023 7:25 AM CDT Heladio Luna III, MD LAB - CHEMISTRY O RDERABLES [facility] [address] [place] [address] * (ABNORMAL) LIPID PROFILE (11/13/2023 7:25 AM [...] of LDL-C. Sherman SS et al. VIRGIL. 2013;310(30): 7070-4830 (http://education.[employer]/faq/AEW440) CHOL/HDLC RATIO 3.8 <5.0 (calc) [facility] Non HDL Cholesterol 109 <130 mg/dL (calc) [facility] Comment: For patients with diabetes plus 1 major ASCVD risk factor, treating to a non-HDL-C goal of <100 mg/dL (LDL-C of <70 mg/dL) is considered a therapeutic option. Test Performed at: [facility] [id number] [place] [phone] CHELE CANO MD Blood BLOOD SPECIMEN / Unknown 11/13/2023 7:25 AM CDT 11/13/2023 7:25 AM CDT Heladio Luna III, MD LAB - CHEMISTRY O RDERABLES [facility] [address] [place] [address] * HEPATITIS C ANTIBODY (07/22/2016 2:45 PM CHUTE GREASER) Pathologist [facility] Hepatitis C Antibody Non-react [facility] Comment: Hepatitis C Antibody [...] BLOOD SPECIMEN / Unknown 07/22/2016 2:45 PM CHUTE GREASER 07/22/2016 2:54 PM CHUTE GREASER Arik Lipscomb MD LAB - CHEMISTRY ISHMAEL Cook Organization Address City/State/ZIP Co de Phone Number [facility] [address] [place] [address] from Last 3 Months or Most Recently Relevant to Health Maintenance Care Teams Corset Maker Relationship Specialty Start Date End Date Aditi Stark, CUSTOMER ENGINEERING SPECIALIST-INSTRUMENT REPAIR SPECIALIST [address] [facility], [address] [place] [address] PCP - General Nurse Practitioner 12/08/22
--- OUTSIDE RECORDS SUMMARY | 2024-06-17 01:24 | XMS_ITS | Encounter Summary ---
Author Organization [facility] Address [address] [facility] [place], [place] [address] [place] [address] Care Team Providers Care Vat Tender Name Role Phone MiLise rossaydin Perkins [facility] Primary Care Provider + Encounter Details Date Type Department Care Team (Late Contact Info) Description 01/10/2022 [employer] Message Enc [address] [phone] Velasquez, [facility] Provider Ozempic Social History Tobacco Use [...] Description 10/20/2024 7:20 AM CDT Office Visit [facility] [address] [facility] [place] [address] Aditi Stark, [facility] [address], [address] [place] [address] 05/03/2025 8:00 AM HEATING ELEMENT WINDER Appointment [facility] [address] [facility] [place] [address] Aditi Stark, [facility] [address] [facility], [address] [place] [address] documented as of this encounter Visit Diagnoses Not on filedocumented in this encounter Additional Health Concerns Assessment Noted Time PHQ-9 Depression Total Score: 0 08/14/19 22 3:56 PM CDT documented as of this encounter Care Teams Vat Tender Relationship Specialty Start Date End Date Aditi Stark, [facility] [address] [facility], [address] [place] [address] PCP - General NURSE PRACTITIONER 05/14/20 documented as of this encounter
--- OUTSIDE RECORDS SUMMARY | 2024-06-17 01:24 | XMS_ITS | Patient Health Summary ---
Author Organization [facility] Address [address] [place] [address] Care Team Providers Care Neurological Surgeon Name Role Phone Aditi Stark AIR CONDITIONING TECHNICIAN-ENDLESS TRACK VEHICLE SUPERVISOR Primary Care Provider Note from [facility],non-owned Affiliates and Associated Physician Practices is amultiple site organization consisting of ambulatory clinics and hospital sitesin [place], [place] and [place]. This disclosure is being madepursuant to the Care Everywhere program and may not contain all information available regarding this patient. Last updated 18.[facility] Allergies * Aspirin(Patient stated that he got [...] Comments Blood Pressure 132/94 06/06/2024 8:45 AM FRONT MAN Pulse 73 06/06/2024 8:45 AM FRONT MAN Temperature 36.6 ??C (97.8 ??F) 06/06/2024 8:45 AM CS T Respiratory Rate 18 06/11/2023 9:48 AM FRONT MAN Oxygen Saturation 98% 06/06/2024 8:45 AM FRONT MAN Inhaled Oxygen Concentration - - Weight 124.2 kg (273 lb 12.8 oz) 06/06/2024 8:45 AM FRONT MAN Height 185.4 cm (6' 1 ) 06/06/2024 8:45 AM FRONT MAN Body Mass Index 36.12 06/06/2024 8:45 AM FRONT MAN Procedures * US ABDOMEN LIMITED(Performed 06/06/2024) Performed [...] METABOLIC PANEL(Performed 06/18/2023) Performed for Hypokalemia * LA LIVER ELASTOGRAPHY(Performed 06/11/2023) Performed for GRAFF (nonalcoholic [...] PANEL(Performed 12/28/2021) * LIPID PROFILE(Performed 12/28/2021) * LA LIVER ELASTOGRAPHY(Performed 08/12/2021) Performed for GRAFF (nonalcoholic [...] GRAFF (nonalcoholic steatohepatitis), Hereditary hemochromatosis (HCC) * LA LIVER ELASTOGRAPHY(Performed 02/07/2020) Performed for GRAFF (nonalcoholic [...] * CBC W AUTO DIFFERENTIAL(Performed 07/22/2016) * GIMQI-9-[id number] BLOOD PHENOTYPING PANEL(Performed 07/22/2016) * MITOCHONDRIAL ANTIBODY [...] * US ABDOMEN LIMITED (06/06/2024 8:10 AM FRONT MAN) Only the most recent of3 resultswithin the time period is included. Anatomical Region Laterality Modality Abdomen Ultrasound 06/06/2024 8:20 AM FRONT MAN Impressions 06/06/2024 9:31 AM FRONT MAN IMPRESSION: 1.Diffuse hepatic steatosis. No notable surface [...] evaluation. > Dictated by Bunny Olmos MD (limited radiology technician). I, Peg Goldman MD have personally reviewed and interpreted this examination/study. > Interpreting Provider: Peg Goldman MD on 06/06/2024 9:31 AM Narrative 06/06/2024 9:31 AM FRONT MAN PROCEDURE: ??US ABDOMEN LIMITED DATE/TIME OF EXAM: [...] evaluation. > Dictated by Bunny Olmos MD (limited radiology technician). I, Peg Goldman MD have personally reviewed and interpreted this examination/study. > Interpreting Provider: Peg Goldman MD on 59:31 AM Brooke Bernard AIR CONDITIONING TECHNICIAN-ENDLESS TRACK VEHICLE SUPERVISOR US ORDERABL ES * HEMOGLOBIN A1C (11/13/2023 [...] diagnosis of diabetes in children. According to [place] Diabetes Association (ADA) guidelines, hemoglobin A1c <7.0% represents optimal control in non- diabetic patients. Different metrics may apply to specific patient populations. Standards of Medical Care in Diabetes(ADA). ? This test was performed on the Mitzi guillermina c503 platform. Effective 08/03/23, a change in test platforms from the Hernandez Bearing Inspector to the Mitzi guillermina c503 may have shifted HbA1c results compared to historical results. Based on laboratory validation testing conducted at [facility], the Mitzi platform relative to the Hernandez [...] recommended. REPORT COMMENT: FASTING:YES Test Performed at: [facility] [address] [place], [place] ??[address] CHELE CANO MD Blood BLOOD SPECIMEN / Unknown 11/13/2023 7:25 AM CDT 11/13/2023 7:25 AM CDT Heladio Luna III, MD LAB - CHEMISTRY O RDERABLES [address] [address] * (ABNORMAL) COMPREHENSIVE METABOLIC PANEL (11/13/2023 7:25 [...] 46 U/L [facility] Comment: Test Performed at: [facility] [address] [place], [place] ??[phone] CHELE CANO MD Blood BLOOD SPECIMEN / Unknown 11/13/2023 7:25 AM CDT 11/13/2023 7:25 AM CDT Heladio Luna III, MD LAB - CHEMISTRY O RDXIAO Performing Organization Address [facility] de Phone Number [facility] [address] [place] [address] * (ABNORMAL) LIPID PROFILE (11/13/2023 7:25 AM [...] LDL-C. Sherman REA et al. VIRGIL. 2013;310(19): 7365-7371 (http://education.ShareMagnet/faq/URA026) CHOL/HDLC RATIO 3.8 <5.0 (calc) [facility] Non HDL Cholesterol 109 <130 mg/dL (calc) [facility] Comment: For patients with diabetes plus 1 major ASCVD risk factor, treating to a non-HDL-C goal of <100 mg/dL (LDL-C of <70 mg/dL) is considered a therapeutic option. Test Performed at: [facility] ??[phone] CHELE CANO MD Blood BLOOD SPECIMEN / Unknown 11/13/2023 7:25 AM CDT 11/13/2023 7:25 AM CDT Heladio uLna III, MD LAB - CHEMISTRY O DONNA Performing Organization Address [facility] de Phone Number RUST [address] [place] [address] * LA LIVER ELASTOGRAPHY (06/11/2023 9:35 AM FRONT MAN) Narrative Juan J Ridley, MD - 06/11/2023 9:35 AM FRONT MAN Juan J Ridley MD ? 06/11/2023 ??1:30 PM Diagnosis: GRFAF RN verified patient is NPO for prior [...] patients with nonalcoholic fatty liver disease. Gastroenterology 2019;156:8202-2319. Abena MS, Jose R, Van Natta ML, [...] at-risk nonalcoholic steatohepatitis (GRAFF) in a [place] cohort and comparison to other non-invasive algorithms. PLoS ONE (2021) 17: [id number]. Brandon AJ, Oleg J, Fili ZM, et al. Enhanced diagnosis of advanced fibrosis and cirrhosis in individuals with NAFLD using FibroScan-based Agile scores. J Hepatol (2022) 78: 247-259. Fibroscan LSM can also be used with laboratory parameters without formulas to assess prognosis. According to the Baveno-VII criteria (Sharma, 2021), Fibroscan LSM ?15 kPa plus a platelet count of ?669l859/L rules out clinically significant portal hypertension (sensitivity [...] FIB-4 score (Nina et al. Hepatology Communications 2019;3:8639-9196) or NAFLD Fibrosis score (Luis et al. Clinical Gastroenterology and Hepatology 2019;17:7961-7673 using ??routine clinical data. Note: 1. Fibroscan [...] additional interpretive data was last updated 09/20/22.) [email or web address] [email or web address] [email or web address]-[email or web address] Brooke Bernard AIR CONDITIONING TECHNICIAN-ENDLESS TRACK VEHICLE SUPERVISOR PROCEDURE/M INOR SURGICAL ORDERABLES * CBC WITH DIFFERENTIAL (05/23/2023 7:45 AM FRONT MAN) Only the most recent of9 resultswithin the [...] 0.8 % [facility] Comment: Test Performed at: [employer] [employer] [address] [place], [place] ??[address] CHELE CANO MD [facility] Comments [facility] Comment: Test Performed at: [employer] [address] [place], [place] ??[address] CHELE CANO MD 05/23/2023 7:45 AM FRONT MAN 05/23/2023 7:45 AM FRONT MAN Brooke PEPPER LAB - HEMAT OLOGY ORDERABLES Performing Organization Address [facility] Co de Phone Number RUST [address] [place] [address] * FERRITIN (05/23/2023 7:45 AM FRONT MAN) Only the most recent of11 resultswithin the time period is included. Pathologist [facility] Ferritin 96 38 - 380 ng/mL [facility] Comment: REPORT COMMENT: FASTING:YES Test Performed at: [email or web address] [address] [place], [place] ??[address] CHELE CANO MD 05/23/2023 7:45 AM FRONT MAN 05/23/2023 7:45 AM FRONT MAN Brooke PEPPER LAB - CHEMI STRY ORDERABLES Performing Organization Address [facility] Co de Phone Number RUST [phone] [place] [address] * ALPHA FETOPROTEIN BLOOD TUMOR MARKER (11/29/2022 7:40 AM CDT) Only the most recent of3 resultswithin the time period is included. Pathologist [facility] Alpha-Fetoprotei n Tumor Marker 2.3 <6.1 ng/mL [facility] Comment: This test was performed using the Shira Leroy chemiluminescent method. Values obtained from different assay methods cannot be used interchangeably. AFP levels, regardless of value, should not be interpreted as absolute evidence of the presence or absence of disease. Test Performed at: [facility] [address] ??[address] MARISA BRIDGES Blood BLOOD SPECIMEN / Unknown 11/29/2022 7:40 AM CDT 11/29/2022 7:41 AM CDT Brooke Bernard AIR CONDITIONING TECHNICIAN-ENDLESS TRACK VEHICLE SUPERVISOR LAB - CHEMI STRY ORDERABLES Performing Organization Address [facility] de Phone Number [address] [address] * PT-INR (11/29/2022 7:37 AM CDT) Only the most recent of3 resultswithin the time period is included. Pathologist [facility] INR 1.0 [facility] Comment: Reference Range ? 0.9-1.1 Moderate-intensity Warfarin Therapy 2.0-3.0 Higher-intensity Warfarin Therapy ?? 3.0-4.0 PT 10.8 9.0 - 11.5 sec [facility] Comment: For additional information, please refer to http://education.Netbooks/faq/IUL371 (This link is being provided for informational/ educational purposes only.) Test Performed at: [facility] ??[address] CHELE CANO MD Blood BLOOD SPECIMEN / Unknown 11/29/2022 7:37 AM CDT 11/29/2022 7:39 AM CDT Brooke Bernard AIR CONDITIONING TECHNICIAN-ENDLESS TRACK VEHICLE SUPERVISOR LAB - COAGU LATION ORDERABLES Performing Organization Address [facility] de Phone Number [address] [address] * CBC W/O DIFFERENTIAL (12/28/2021 10:03 AM CDT) Only the most recent of5 resultswithin the time period is included. Pathologist [facility] White Blood Cell Count 4.6 3.8 - [...] 12.5 fL [facility] Comment: Test Performed at: [employer] [employer] [address] [place], [place] ??[address] LOU JULES DO,MPH 12/28/2021 10:0 3 AM CDT 12/28/2021 10:04 AM CDT Tadeo Babin MD LAB - HEMATOLOGY ORD ERABLES Performing Organization Address [facility] Co de Phone Number RUST [address] [place] [address] * IGG BLOOD (12/28/2021 10:03 AM CDT) IgG 974 600 - 1640 mg/dL [facility] Comment: Test Performed at: [employer] [address] [place], [place] ??[address] LOU JULES DO,MPH 12/28/2021 10:0 3 AM CDT 12/28/2021 10:04 AM CDT Tadeo Babin MD LAB - CHEMISTRY ORDE RABLES Performing Organization Address [facility] de Phone Number RUST [address] [place] [address] * LA LIVER ELASTOGRAPHY (08/12/2021 8:53 AM CDT) Narrative [...] of hepatic steatosis is: high. Juan J aBcon MD The following criteria are used to [...] patients with nonalcoholic fatty liver disease. Gastroenterology 2019;156:6254-4241. Abena MS, Jose R, Van Natta ML, [...] FIB4 score (Srinathe et al. Hepatology Communications 2019;3:9852-1277) or NAFLD Fibrosis score (Luis et al. Clinical Gastroenterology and Hepatology 2019;17:3113-7754. from routine clinical data. 3. Liver stiffness [...] change as additional supporting data becomes available. [email or web address] Tadeo Babin MD PROCEDURE/MINOR SURG ICAL ORDERABLES * BASIC METABOLIC PANEL (CALCIUM TOTAL) (03/23/2020 12:03 PM FRONT MAN) Glucose 93 65 - 99 mg/dL [facility] Comment: ? Fasting reference interval BUN 14 7 - 25 mg/dL [facility] Creatinine 0.81 0.70 - 1.33 mg/dL [facility] Comment: For patients >49 years of age, the reference limit for Creatinine is approximately 13% higher for people identified as -[place]. eGFR by MDRD 103 > OR = [...] 10.3 mg/dL [facility] Comment: Test Performed at: [email or web address] [address] [place], [place] ??[address] LOU JULES DO,MPH 03/23/2020 12:0 3 PM FRONT MAN 03/23/2020 12:03 PM FRONT MAN Tadeo Babin MD LAB - CHEMISTRY [place]MAEL [place] Performing Organization Address [facility] de Phone Number [facility] [address] [place] [address] * (ABNORMAL) HEPATIC FUNCTION PANEL (03/23/2020 12:03 PM FRONT MAN) Protein Total 6.3 6.1 - 8.1 g/dL [...] 46 U/L [facility] Comment: Test Performed at: [employer] [place] ??[address] LOU JULES DO,MPH 03/23/2020 12:0 3 PM FRONT MAN 03/23/2020 12:03 PM FRONT MAN Tadeo Babin MD LAB - CHEMISTRY [place]MAEL [place] Performing Organization Address [facility] de Phone Number [facility] [address] [place] [address] * (ABNORMAL) IRON + TIBC PANEL (03/23/2020 12:03 PM FRONT MAN) Pathologist [facility] Iron 179 50 - 180 mcg/dL [facility] TIBC 292 250 - 425 mcg/dL (calc) [facility] % Saturation 61(H) 20 - 48 % (calc) [facility] Comment: Test Performed at: [employer] [address] [place], [place] ??[address] LOU JULES DO,MPH 03/23/2020 12:0 3 PM FRONT MAN 03/23/2020 12:03 PM FRONT MAN Tadeo Babin MD LAB - CHEMISTRY [place]MAEL [place] Performing Organization Address [facility]/ZIP Co de Phone Number [facility] [address] [place] [address] * GGT (03/23/2020 12:03 PM FRONT MAN) GGT 35 3 - 95 U/L [facility] Comment: Test Performed at: [employer] [place] [address] [place], [place] ??[address] LOU JULES DO,MPH 03/23/2020 12:0 3 PM FRONT MAN 03/23/2020 12:03 PM FRONT MAN Tadeo Babin MD LAB - CHEMISTRY ORDAlex KATYAHIRA Performing Organization Address [facility] Co de Phone Number [facility] [address] [place] [address] * PROC FIBROSCAN (02/07/2020 2:14 PM CDT) [...] patients with nonalcoholic fatty liver disease. Gastroenterology 2019;156:8152-0915. Abena MS, Jose R, Van Valeria ML, [...] FIB4 score (Srinathe et al. Hepatology Communications 2019;3:3155-4287) or NAFLD Fibrosis score (Luis et al. Clinical Gastroenterology and Hepatology 2019;17:7644-0317. from routine clinical data. 3. Liver stiffness [...] change as additional supporting data becomes available. [email or web address]/mun-[email or web address] Tadeo Babin MD PROCEDURE/MINOR SURG ICAL ORDERABLES * (ABNORMAL) HEMOCHROMATOSIS MUTATION PANEL (07/22/2016 2:45 PM FRONT MAN) Hemochromatosis Genotype Accession No: [id number] Specimen: Peripheral Blood Reference: [id number] Test: Hemochromatosis Genotyping RESULT Hemochromatosis Genotyping C282Y [...] determined by the DNA Diagnostic Laboratory at [facility]. It has not been cleared or approved [...] complexity clinical laboratory testing. Test performed at [facility], [address] [place] [address] ??[id number] This case has been personally reviewed and interpreted by the attending (teaching) pathologist. Final Diagnosis performed by Sylvia Plunkett MD. Electronically signed 07/25/2016(A) [facility] ([place]) Blood specimen (specimen) BLOOD SPECIMEN / Unknown 07/22/2016 2:45 PM FRONT MAN 07/22/2016 2:53 PM FRONT MAN Arik Lipscomb MD LAB - CHEMISTRY [place]MA[place] Performing Organization Address City/[facility]/ZIP Co de Phone Number [facility] ([place]) * PT-INR [facility] (07/22/2016 2:45 PM FRONT MAN) PT 13.6 12.1 - 14.8 Seconds [facility] INR 1.1 See Comment [facility] Comment: Suggested therapeutic range for low-intensity coumadin therapy for venous thromboembolism prophylaxis is an INR of 2.0-3.0. ??For high risk patients (Mitral Valve Prosthesis, Atrial Fibrillation, history of TIA/stroke), suggested prophylactic therapeutic range is an INR of 2.5-3.5. Blood specimen (specimen) BLOOD SPECIMEN / Unknown 07/22/2016 2:45 PM FRONT MAN 07/22/2016 2:54 PM FRONT MAN Narrative [facility] - 07/22/2016 3:10 PM FRONT MAN Is patient on Heparin, Argatroban or Dabigatran?->N Arik Lipscomb MD LAB - COAGULATION OR DERABLES Performing Organization Address City/[facility]/ZIP Co de Phone Number [address] [phone] * DAIJA BLOOD SCREEN (07/22/2016 2:45 PM FRONT MAN) DAIJA None Detected None Detected [facility] Venous blood specimen (specimen) 07/22/2016 2:45 PM FRONT MAN 07/22/2016 2:52 PM FRONT MAN Arik Lipscomb MD LAB - CHEMISTRY [place] [address] [phone] * MITOCHONDRIAL ANTIBODY SCREEN (07/22/2016 2:45 PM FRONT MAN) Pathologist [facility] Mitochondrial M2 Antibody 10.4 0.0 - 20.0 Units [facility] Comment: Mitochondrial M2 Antibody Numeric Result Interpretation: ?<20.1 Units: ??Negative ?20.1 - 24.9 Units: ??Equivocal ?>24.9 Units: ??Positive ? Blood specimen (specimen) BLOOD SPECIMEN / Unknown 07/22/2016 2:45 PM FRONT MAN 07/22/2016 2:53 PM FRONT MAN Arik Lipscomb MD LAB - CHEMISTRY [place]HMAEL [place] Performing Organization Address [facility] de Phone Number [address] [phone] * [id number] BLOOD PHENOTYPING PANEL (07/22/2016 2:45 PM FRONT MAN) Pathologist [facility] Glydn-2-Avxjeanfhu n 137 90 - 200 mg/dL [facility] (BEAKER) Phenotype (PI) MM [facility] (BEAKER) Comment: ? Phenotype ?? [...] BLOOD SPECIMEN / Unknown 07/22/2016 2:45 PM FRONT MAN 07/22/2016 2:53 PM FRONT MAN Narrative [facility] - 07/25/2016 3:16 PM FRONT MAN Performed at: ??01 - [facility] [address] ??[id number] Addiction Professional: Braxton Obregon PhD, Phone: ??[phone] Performed at: ??02 - [facility] ??[id number] Addiction Professional: Lou Cedeno MD, Phone: ??[phone] Arik Lipscomb MD LAB - CHEMISTRY [place] [facility]) * CERULOPLASMIN (07/22/2016 2:45 PM FRONT MAN) Ceruloplasmin 23 20 - 60 mg/dL [facility] Blood specimen (specimen) BLOOD SPECIMEN / Unknown 07/22/2016 2:45 PM FRONT MAN 07/22/2016 2:54 PM FRONT MAN Arik Lipscomb MD LAB - CHEMISTRY ORDE IHSAN Performing Organization Address [facility] de Phone Number [address] [phone] * SMOOTH MUSCLE ANTIBODY (07/22/2016 2:45 PM FRONT MAN) F-Actin Antibody IgG 19.4 0.0 - 19.9 Units [facility] Comment: F-Actin Antibody Numeric Result Interpretation: ?<20.0 Units: ??Negative ?20.0 - 30.0 Units: ??Weak Positive ?>30.0 Units: ??Moderate to Strong Positive ? Blood specimen (specimen) BLOOD SPECIMEN / Unknown 07/22/2016 2:45 PM FRONT MAN 07/22/2016 2:53 PM FRONT MAN Arik Lipscomb MD LAB - SEROLOGY ORDER MAHAD Performing Organization Address [facility] de Phone Number [address] [phone] * HEPATITIS B SURFACE ANTIBODY (07/22/2016 2:45 PM FRONT MAN) Hepatitis B Virus Surface Antibody Non-react darling Non-react darling [facility] Comment: < 8 mIU/mL Hepatitis B surface Antibody (HBsAb). Nonreactive for HBsAb - individual is considered not immune to Hepatitis B Virus infection. Hepatitis B Surface Antibody Quantitative 6.9 <8.0 mIU/mL [facility] Comment: Hepatitis B Surface Antibody Numeric Result Interpretation: ? Nonreactive: ?<8.0 mIU/mL ? Indeterminate: ??8.0 - 12.0 mIU/mL ? Reactive: ?>12.0 mIU/mL ? Blood specimen (specimen) BLOOD SPECIMEN / Unknown 07/22/2016 2:45 PM FRONT MAN 07/22/2016 2:54 PM FRONT MAN Arik Lipscomb MD LAB - CHEMISTRY [place]HMAEL [place] Performing Organization Address [facility] Co de Phone Number [address] [phone] * HEPATITIS B CORE ANTIBODY (07/22/2016 2:45 PM FRONT MAN) HBc Antibody Total Non-reacti ve Non-reacti ve [facility] Blood specimen (specimen) BLOOD SPECIMEN / Unknown 07/22/2016 2:45 PM FRONT MAN 07/22/2016 2:54 PM FRONT MAN Arik Lipscomb MD LAB - CHEMISTRY [place]HMAEL [place] Performing Organization Address [facility] de Phone Number [address] [phone] * HEPATITIS B SURFACE ANTIGEN W RFLX CONFIRMATION (07/22/2016 2:45 PM FRONT MAN) Hepatitis B Virus Surface Antigen Non-reacti ve Non-reacti ve [facility] Blood specimen (specimen) BLOOD SPECIMEN / Unknown 07/22/2016 2:45 PM FRONT MAN 07/22/2016 2:54 PM FRONT MAN Arik Lipscomb MD LAB - CHEMISTRY [place]HMAEL [place] Performing Organization Address [facility] Co de Phone Number [address] [phone] * HEPATITIS C ANTIBODY (07/22/2016 2:45 PM FRONT MAN) Hepatitis C Antibody Non-react darling Non-reac tive [facility] Comment: Hepatitis C Antibody screen indicates no serologic evidence of past or current infection with Hepatitis C Virus. Patients with unexplained liver disease who are immunocompromised or suspected of having acute Hepatitis C infection may benefit from Nucleic Acid Test (FABY) for Hepatitis C Viral RNA to confirm Hepatitis C status. Blood specimen (specimen) BLOOD SPECIMEN / Unknown 07/22/2016 2:45 PM FRONT MAN 07/22/2016 2:54 PM FRONT MAN Arik Lipscomb MD LAB - CHEMISTRY [place] [address] [phone] * HEPATITIS A ANTIBODY (07/22/2016 2:45 PM FRONT MAN) Hepatitis A Virus Antibody Total Negative Negative [facility] (BEAKER) Blood specimen (specimen) 07/22/2016 2:45 PM FRONT MAN 07/22/2016 2:53 PM FRONT MAN Narrative [facility] ([facility]AKER) - 07/23/2016 7:14 AM FRONT MAN Performed at: ??01 - [facility] [address] ??[id number] Addiction Professional: Braxton Obregon PhD, Phone: ??[phone] Arik Lipscomb MD LAB - CHEMISTRY [place]MA[place] [facility] (BEAKER) Care Teams Neurological Surgeon Relationship Specialty Start Date End Date Aditi Stark, AIR CONDITIONING TECHNICIAN-ENDLESS TRACK VEHICLE SUPERVISOR [address] [facility], [address] [place] [address] PCP - General Nurse Practitioner 12/08/22
--- OUTSIDE RECORDS SUMMARY | 2024-06-17 01:24 | XMS_ITS | Encounter Summary ---
Author Organization [facility] Address [address] [place] [address] [place] [address] Care Team Providers Care Medical Editor Name Role Phone Aditi Stark [facility] Primary Care Provider + Encounter Details Date Type Department Care Team (Late Contact Info) Description 11/12/2022 MyChart Message Enc [facility] - [facility] [address] [place], [place] [id number] [employer], [facility] Provider Air Quality Message Social History Tobacco [...] Description 10/20/2024 7:20 AM CDT Office Visit [address] [phone] Aditi Stark, [facility] [address] [facility], [address] [place] [address] 05/03/2025 8:00 AM SAMPLER AND TEST PREPARER Appointment [facility] [address] [place] [address] Aditi Stark, [facility] [address], [address] [place] [address] documented as of this encounter Visit Diagnoses Not on filedocumented in this encounter Additional Health Concerns Assessment Noted Time PHQ-9 Depression Total Score: 0 08/14/19 22 3:56 PM CDT documented as of this encounter Care Teams Medical Editor Relationship Specialty Start Date End Date Aditi Stark, [facility] [address], [address] [place] [address] PCP - General NURSE PRACTITIONER 05/14/20 documented as of this encounter
--- OUTSIDE RECORDS SUMMARY | 2024-06-17 01:24 | XMS_ITS | Encounter Summary ---
Author Organization [facility] Address [address] [place] [address] [place] [address] Care Team Providers Care Insole Reinforcer Name Role Phone Lawson Mathew MD Primary Care Provider Unavailable Shannon Carr MD Primary Care Provider Un available Aditi Stark [facility] Primary Care Provider + Encounter Details Date Type Department Care Team (Late st Contact Info) Description 06/27/2010 Abstract [facility] Conversion Whit Zamarripa, MAGNO [address] [address] Social History Tobacco Use Types Packs/Day Years [...] to pt on the phone 06/26/2010 @ 6424. Pt stated he is feeling better, but [...] weeks for a BP check. Dictated By: hWit Zamarripa CNP RING MACHINE FEEDER documented in this encounter Plan of Treatment Upcoming Encounters Date Type Department Care Team (Late st Contact Info) Description 10/20/2024 7:20 AM CDT Office Visit [facility] [address] [facility] [phone] Aditi Stark [facility] [address], [address] [place] [address] 05/03/2025 8:00 AM FLOORING MACHINE FEEDER Appointment [facility] [address] [facility] [address] Aditi Stark [facility] [address], [address] [place] [address] documented as of this encounter Visit Diagnoses Not on filedocumented in this encounter Care Teams Insole Reinforcer Relationship Specialty Start Date End Date Lawson Mathew MD PCP - General FAMILY PRACTICE 04/27/18 05/04/18 Shannon Carr MD PCP - General INTERNAL MEDICINE 05/05/18 05/13/20 Aditi Stark [facility] [address], [address] [place] [address] PCP - General NURSE PRACTITIONER 05/14/20 documented as of this encounter
--- OUTSIDE RECORDS SUMMARY | 2024-06-17 01:24 | XMS_ITS | Encounter Summary ---
Author Organization [facility] Address [facility] [place] [address] Care Team Providers Care Gas Controller Name Role Phone Aditi Stark BUSINESS LINE CONTROLLER-TRADE SALES ASSISTANT Primary Care Provider Reason for Visit * Reason Onset Date Comments MEDICATION REFILL 02/29/2024 Encounter Details Date Type Department Care Team (Late st Contact Info) Description 02/29/2024 Refill [facility] - [address], [place] [address] Heladio Luna III, MD [address] [place] [phone] MEDICATION REFILL Social History Tobacco Use Types [...] Description 10/26/2024 1:30 PM CDT Office Visit [facility] - [place] [address] [place] [phone] Irene Barron PA-C [address] [facility] DEPT [place] [phone] 04/26/2025 1:30 PM TIN CONTAINER STRAIGHTENER Office Visit [facility] - [address] [phone] Heladio Luna III, MD [address] [place] [address] [address] [phone] 06/05/2025 8:30 AM TIN CONTAINER STRAIGHTENER Procedure visit [facility] - [address] [phone] 06/05/2025 9:00 AM TIN CONTAINER STRAIGHTENER Office Visit [facility] - [address] [phone] Brooke Bernard, BUSINESS LINE CONTROLLER-TRADE SALES ASSISTANT [address] [place] [address] [address] DIV OF GASTROENTEROLOGY [place], [place] [phone] documented as of this encounter Goals Goal Patient Goal Type Associated Problems Recent Progress Patient-Stated? Author Medication Management General On track( 024 2:03 PM TIN CONTAINER STRAIGHTENER) Jude Villegas, RN Note: Expected end date: Interventions: Take all medications as prescribed Let your doctor know right away about any changes in your medications Make sure to request a refill of your medication at least one week prior to your last dose documented as of this encounter Visit Diagnoses Not on filedocumented in this encounter Care Teams Gas Controller Relationship Specialty Start Date End Date Aditi Stark, BUSINESS LINE CONTROLLER-TRADE SALES ASSISTANT [address] [facility], [address] [place] [address] PCP - General Nurse Practitioner 12/08/22 documented as of this encounter
--- OUTSIDE RECORDS SUMMARY | 2024-06-17 01:24 | XMS_ITS | Clinical Summary ---
Author Organization [facility] Address [address] [facility] [place] [address] Care Team Providers Care Horticulture Superintendent Name Role Phone Aditi Stark MANAGER MISSION-BIODIESEL PRODUCT MANAGER Primary Care Provider Source Comments [facility],non-owned Affiliates and Associated Physician Practices is amultiple site organization consisting of ambulatory clinics and hospital sitesin [place], [place], [place] and [place]. This disclosure is being madepursuant to the Care Everywhere program and may not contain all information available regarding this patient. Last updated 18.[facility] Allergies Active Allergy Reactions Criticality Noted Date [...] Department Care Team Description 06/06/2024 9:00 AM FAMILY SERVICES MANAGER Office Visit [facility] - [address] [phone] Brooke Bernard APRN-CNP Metabolic dysfunction-associated steatohepatitis (MASH) (Primary Dx); Hereditary hemochromatosis (HCC) 06/06/2024 7:18 AM FAMILY SERVICES MANAGER - 06/06/2024 11:59 PM FAMILY SERVICES MANAGER Hospital Encounter [facility] [address] [place] [phone] Brooke Bernard APRN-CNP Discharge Disposition: Home or Self Care 06/06/2024 Travel 04/20/2024 2:30 PM FAMILY SERVICES MANAGER Office Visit [facility] - [address] [phone] Heladio Luna III, MD Class 2 severe [...] unspecified constipation type 04/20/2024 Travel 04/12/2024 Telephone [facility] [address] [phone] Jacob Yao, used car sales manager Issue 04/11/2024 Refill [facility] [address] [phone] Heladio Luna III, MD MEDICATION REFILL from [...] Comments Blood Pressure 132/94 06/06/2024 8:45 AM FAMILY SERVICES MANAGER Pulse 73 06/06/2024 8:45 AM FAMILY SERVICES MANAGER Temperature 36.6 ??C (97.8 ??F) 06/06/2024 8:45 AM CS T Respiratory Rate 18 06/11/2023 9:48 AM FAMILY SERVICES MANAGER Oxygen Saturation 98% 06/06/2024 8:45 AM FAMILY SERVICES MANAGER Inhaled Oxygen Concentration - - Weight 124.2 kg (273 lb 12.8 oz) 06/06/2024 8:45 AM FAMILY SERVICES MANAGER Height 185.4 cm (6' 1 ) 06/06/2024 8:45 AM FAMILY SERVICES MANAGER Body Mass Index 36.12 06/06/2024 8:45 AM FAMILY SERVICES MANAGER Plan of Treatment Upcoming Encounters Date Type Department Care Team (Late st Contact Info) Description 10/26/2024 1:30 PM CDT Office Visit [facility] - GI [address] [facility] [place] [phone] Irene Barron PA-C [address] [facility] DEPT [place] [phone] 04/26/2025 1:30 PM FAMILY SERVICES MANAGER Office Visit [facility] - GI [address] [place] [address], [place] [phone] Heladio Luna III, MD [address] [place] [address] [address]L [place] [phone] 06/05/2025 8:30 AM FAMILY SERVICES MANAGER Procedure visit [facility] - GI [address] [place] [phone] 06/05/2025 9:00 AM FAMILY SERVICES MANAGER Office Visit [facility] - GI [address] [place] [address], [place] [phone] Brooke Bernard, MANAGER MISSION-BIODIESEL PRODUCT MANAGER [address] [place] [address] [address] DIV OF GASTROENTEROLOGY [place], [place] [phone] Health Maintenance Due Date Last Done Comments [...] Management General On track( 024 2:03 PM FAMILY SERVICES MANAGER) Jude Villegas, RN Note: Expected end date: Interventions: Take all medications as prescribed Let your doctor know right away about any changes in your medications Make sure to request a refill of your medication at least one week prior to your last dose Procedures Procedure Name Priority Date/Time Associated Diagnosis Comments US ABDOMEN LIMITED Routine 06/06/2024 8: 10 AM FAMILY SERVICES MANAGER GRAFF (nonalcoholic steatohepatitis) COMPREHENSIVE METABOLIC PANEL Routine 11/13/2023 7:25 AM CDT Obesity, unspecified classification, unspecified obesity type, unspecified whether serious comorbidity present LIPID PROFILE Routine 11/13/2023 7:25 AM CDT Obesity, unspecified classification, unspecified obesity type, unspecified whether serious comorbidity present HEPATITIS C ANTIBODY Routine 07/22/2016 2:45 PM FAMILY SERVICES MANAGER from Last 3 Months or Most Recently Relevant to Health Maintenance Results * US ABDOMEN LIMITED (06/06/2024 8:10 AM FAMILY SERVICES MANAGER) Anatomical Region Laterality Modality Abdomen Ultrasound 06/06/2024 8:20 AM FAMILY SERVICES MANAGER Impressions 06/06/2024 9:31 AM FAMILY SERVICES MANAGER IMPRESSION: 1.Diffuse hepatic steatosis. No notable surface [...] > Dictated by Bunny Olmos MD (residential building inspector). I, Peg Goldman MD have personally reviewed and interpreted this examination/study. > Interpreting Provider: Peg Goldman MD on 06/06/2024 9:31 AM Narrative 06/06/2024 9:31 AM FAMILY SERVICES MANAGER PROCEDURE: ??US ABDOMEN LIMITED DATE/TIME OF EXAM: [...] > Dictated by Bunny Olmos MD (residential building inspector). I, Peg Goldman MD have personally reviewed and interpreted this examination/study. > Interpreting Provider: Peg Goldman MD on 59:31 AM Brooke Bernard MANAGER MISSION-BIODIESEL PRODUCT MANAGER US ORDERABL ES * (ABNORMAL) COMPREHENSIVE METABOLIC [...] 46 U/L [facility] Comment: Test Performed at: [facility] [address] ??[phone] CHELE CANO MD Blood BLOOD SPECIMEN / Unknown 11/13/2023 7:25 AM CDT 11/13/2023 7:25 AM CDT Heladio Luna III, MD LAB - CHEMISTRY O RDER[facility]LES [facility] [address] [place] [address] * (ABNORMAL) LIPID PROFILE (11/13/2023 7:25 AM [...] LDL-C. Sherman REA et al. VIRGIL. 2013;310(19): 3709-6335 (http://education.Streamcore System.BonzerDarg/faq/QGA668) CHOL/HDLC RATIO 3.8 <5.0 (calc) [facility] Non HDL Cholesterol 109 <130 mg/dL (calc) [facility] Comment: For patients with diabetes plus 1 major ASCVD risk factor, treating to a non-HDL-C goal of <100 mg/dL (LDL-C of <70 mg/dL) is considered a therapeutic option. Test Performed at: [facility] [address] [place] [address] ??[phone] CHELE CANO MD Blood BLOOD SPECIMEN / Unknown 11/13/2023 7:25 AM CDT 11/13/2023 7:25 AM CDT Heladio Luna III, MD LAB - CHEMISTRY O RDERABLES [facility] [address] [place] [address] * HEPATITIS C ANTIBODY (07/22/2016 2:45 PM FAMILY SERVICES MANAGER) Pathologist [facility] Hepatitis C Antibody Non-react [facility] Comment: Hepatitis C Antibody [...] BLOOD SPECIMEN / Unknown 07/22/2016 2:45 PM FAMILY SERVICES MANAGER 07/22/2016 2:54 PM FAMILY SERVICES MANAGER Arik Lipscomb MD LAB - CHEMISTRY [facility] Organization Address City/State/ZIP Co de Phone Number [address] [phone] from Last 3 Months or Most Recently Relevant to Health Maintenance Care Teams Horticulture Superintendent Relationship Specialty Start Date End Date Aditi Stark, MANAGER MISSION-BIODIESEL PRODUCT MANAGER [address] [facility], [address] [place] [address] PCP - General Nurse Practitioner 12/08/22
--- OUTSIDE RECORDS SUMMARY | 2024-06-17 01:24 | XMS_ITS | Clinical Summary ---
Author Organization [address] Address [address] [place] [phone] Care Team Providers Care Contract Administration Specialist Name Role Phone Fahad Stanley MD Primary Care Provider [phone] Allergies Active Allergy Reactions Criticality Noted Date [...] 11/12/2021 Assessment & Plan (05/05/2024 3:01 PM AIR TRAFFIC CONTROL SPECIALIST): The patient continues to benefit from CPAP [...] year. Assessment & Plan (05/07/2023 3:46 PM AIR TRAFFIC CONTROL SPECIALIST): The patient continues to benefit from CPAP at 16 cm water pressure for ongoing symptoms SEVERO. His DME supplier is [employer]. He will follow up here in 1 year. Assessment & Plan (05/06/2022 3:32 PM AIR TRAFFIC CONTROL SPECIALIST): The patient continues to benefit from CPAP at 16 cm water pressure. His DME supplier is [employer]. He will follow-up with me in 1 year. Assessment & Plan (11/12/2021 3:45 PM CDT): I did order the patient new CPAP set at 16 cm water pressure while sleeping. His DME is [facility]. Encounters Date Type Department Care Team Description 05/05/2024 3:00 PM AIR TRAFFIC CONTROL SPECIALIST Office Visit [facility] Medical [facility] Pulmonary [address] [phone] Lex Thompson MD Obstructive sleep apnea (Primary Dx) 05/05/2024 Telephone [facility] Pulmonary [address] [phone] Lex Thompson MD Orders Only from Last 3 Months Social History Tobacco Use Types Packs/Day Years Used Date Smoking Tobacco: Never Tobacco Cessation:Counseling Given: Not Answered Sex and Gender Information Value Date Recorded Sex Assigned at Not on file Legal Sex Male 8:43 PM AIR TRAFFIC CONTROL SPECIALIST Gender Identity Not on file Sexual Orientation Not on file Obstetrics History Last Filed Vital Signs Vital Sign Reading Time Taken Comments Blood Pressure 118/70 05/05/2024 2:42 PM AIR TRAFFIC CONTROL SPECIALIST Pulse 64 05/05/2024 2:42 PM AIR TRAFFIC CONTROL SPECIALIST Temperature 36.3 ??C (97.4 ??F) 05/05/2024 2:42 PM CS T Respiratory Rate 18 05/05/2024 2:42 PM AIR TRAFFIC CONTROL SPECIALIST Oxygen Saturation 97% 05/05/2024 2:42 PM AIR TRAFFIC CONTROL SPECIALIST Inhaled Oxygen Concentration - - Weight 124.3 kg (274 lb) 05/05/2024 2:42 PM AIR TRAFFIC CONTROL SPECIALIST Height 185.4 cm (6' 1 ) 05/05/2024 2:42 PM AIR TRAFFIC CONTROL SPECIALIST Body Mass Index 36.15 05/05/2024 2:42 PM AIR TRAFFIC CONTROL SPECIALIST Plan of Treatment Health Maintenance Due Date [...] , 03/11/2021, 04/19/2019, Additional history exists Insurance [facility] O[facility] Care Teams Contract Administration Specialist Relationship Specialty Start Date End Date Fahad Stanley MD [address] [place] [address] PCP - General 06/21/20
--- OUTSIDE RECORDS SUMMARY | 2024-06-17 01:24 | XMS_ITS | Clinical Summary ---
Author Organization [facility] Address [address] [facility] [place] [address] [place] [address] Care Team Providers Care Special Services Supervisor Name Role Phone Aditi Stark [facility] Primary Care Provider + Allergies [...] mouth daily. 90 tablet 3 4 Active Active Problems Problem Noted Date Diagnosed [...] Type Department Care Team Description 06/06/2024 Scan HEALTH INFO SRVCS Scanned, [facility] 05/24/[address] [phone] Aditi Stark, ANA-BC Results 05/23/2024 7:39 AM PSYCHOLOGIST COUNSELING - 05/23/2024 11:59 PM PSYCHOLOGIST COUNSELING Hospital Encounter [facility] MRI [address] [place] [address] Aditi Stark, HYDRAULIC REPAIRER-BC Discharge Disposition: Home or Self Care (Routine Discharge) 05/23/2024 Travel 05/05/2024 Scan MG HEALTH INFO SRVCS Scanned, [facility] 05/05/[address] [phone] Aditi Stark FNP-BC Medication Request 05/03/2024 11:20 AM PSYCHOLOGIST COUNSELING Office Visit [address] [phone] Aditi Stark FNP-BC Follow Up (ER) 05/03/[address] [phone] Aditi Stark FNP-BC Orders 05/03/2024 Travel 04/30/2024 9:16 AM PSYCHOLOGIST COUNSELING - 04/30/2024 11:08 AM [facility] Emergency [facility] Emergency Room [address] [place] [address] Yuridia Marshall MD Flank Pain Discharge Disposition: Home or Self Care (Routine Discharge) 04/18/2024 7:40 AM PSYCHOLOGIST COUNSELING Office Visit [address] [phone] Aditi Stark FNP-ANGELES Physical (Annual ) 04/18/2024 Travel from Last [...] Comments Blood Pressure 129/83 05/03/2024 11:32 AM PSYCHOLOGIST COUNSELING Pulse 67 05/03/2024 11:05 AM PSYCHOLOGIST COUNSELING Temperature 36.3 ??C (97.4 ??F) 05/03/2024 1 1:05 AM PSYCHOLOGIST COUNSELING Respiratory Rate 18 05/03/2024 11:0 5 AM PSYCHOLOGIST COUNSELING Oxygen Saturation 97% 05/03/2024 11: 05 AM PSYCHOLOGIST COUNSELING Inhaled Oxygen Concentration - - Weight 126.6 kg (279 lb 3.2 oz) 024 11:05 AM PSYCHOLOGIST COUNSELING Height 180.3 cm (5' 11 ) 05/03/2024 11: 05 AM PSYCHOLOGIST COUNSELING Body Mass Index 38.94 05/03/2024 11:05 AM PSYCHOLOGIST COUNSELING Plan of Treatment Upcoming Encounters Date Type Department Care Team (Late st Contact Info) Description 10/20/2024 7:20 AM CDT Office Visit [facility] [address] [place] [address] Aditi Stark, [facility] [address] [facility], [facility] [address] [place] [address] 05/03/2025 8:00 AM PSYCHOLOGIST COUNSELING Appointment [facility] [address] [place] [address] Aditi Stark, [facility] [address] [facility], [facility] [address] [place] [address] Health Maintenance Due Date Last Done Comments Hepatitis B Vaccines (1 of 3 - 19+ 3-dose series) 1987 Pneumococcal Vaccine: Pediatrics (0 to 5 Years) and At-Risk Patients (6 to 64 Years) (2 of 2 - PCV) 06/10/2013 06/10/2012 Zoster Vaccines (1 of 2) 2018 DTaP, Tdap and Td Vaccines (2 - Td or Tdap) 10/30/2020 10/30/2010 COVID-19 Vaccine (4 - season) 2024 03/22/2021, 06/12/2020, 05/15/2020 Influenza Adult (#1) 2024 04/03/2022, 03/11/2021, 04/19/2019, Additional history exists Annual Physical 04/20/2024 04/20/2023, 10/17, 05/05/2018 PHQ-2 (Physician Wiyot) 05/18/2024 05/03/2024 PHQ-2 (Physician Wiyot) 05/03/2025 05/03/2024 Colorectal Cancer Screening Colonoscopy (10 Years) 07/03/2033 07/03/2023, 06/17/2018 Hepatitis C Completed 07/22/2016, 09/04/2009 Meningococcal B Vaccine Aged Out No l onger eligible based on patient's age to complete this topic Meningococcal Vaccine Aged Out No ximena ivette eligible based on patient's age to complete this topic RSV Immunizations Under 20 Months Aged Out No longer eligible based on patient's age to complete this topic Medical Devices Implanted Type Area Pipe Straightener Device Identifier Shelf Expiration Date Model / Serial / Lot Mesh Mesh Right: Groin Procedures Procedure Name Priority Date/Time Associated Diagnosis Comments MRI ABD WWO CON Routine 05/23/2024 8:54 AM PSYCHOLOGIST COUNSELING Renal lesion XR ABD KUB Routine 05/23/2024 7:58 AM PSYCHOLOGIST COUNSELING Calculus of ureter HC URINALYSIS AUTO W/O MICRO STAT 04/30/2024 10:[address] ABD+PEL KIDNEY STONE STAT 04/30/2024 10:09 AM PSYCHOLOGIST COUNSELING CBC W/DIFF AUTOMATED STAT 04/30/2024 9:41 AM PSYCHOLOGIST COUNSELING LIPASE STAT 04/30/2024 9:32 AM PSYCHOLOGIST COUNSELING COMPREHENSIVE METABOLIC PANEL STAT 04/30/2024 9:32 AM PSYCHOLOGIST COUNSELING COLONOSCOPY/EGD GENERIC (SCAN ORDER) Routine 06/17/2018 HEPATITIS C ANTIBODY Routine 09/04/2009 6:29 AM CDT from Last 3 Months or Most Recently Relevant to Health Maintenance Results * MRI ABD WWO CON (05/23/2024 8:54 AM PSYCHOLOGIST COUNSELING) Anatomical Region Laterality Modality Abdomen Magnetic Resonan ce 05/23/2024 2:30 PM PSYCHOLOGIST COUNSELING Impressions 05/23/2024 2:49 PM PSYCHOLOGIST COUNSELING IMPRESSION:===== 1. Small bilateral renal cysts without suspicious features. No follow-up required. 2. Persistent right hydronephrosis with obstructing calculus of the right proximal ureter. 3. Mild hepatomegaly with diffuse fatty steatosis. 4. Multiple hepatic cysts. 5. Small hiatal hernia. 6. Diverticulosis of the colon. Referred By: ADITI STARK Interpreted By: Nahun Buck MD, 05/23/2024 2:30 PM Narrative 05/23/2024 2:49 PM [place] [address] EXAMINATION: MRI abdomen with and without contrast [...] grossly unremarkable. Minimal pleural effusions. ===== Procedure Note Nahun Buck MD - 05/23/2024 [facility] [address] [place] [address] EXAMINATION: MRI abdomen with and without contrast [...] Buck MD, 05/23/2024 2:30 PM us Aditi Maddie Stark HYDRAULIC REPAIRER-BC MRI Final Re sult * XR ABD KUB (05/23/2024 7:58 AM PSYCHOLOGIST COUNSELING) Anatomical Region Laterality Modality Abdomen Radiographic Almita ging 05/23/2024 2:16 PM PSYCHOLOGIST COUNSELING Impressions 05/23/2024 2:22 PM PSYCHOLOGIST COUNSELING Impression: ??Redemonstrated right UPJ calculus in stable position allowing for the different modalities. Referred By: ADITI STARK Interpreted By: Quincy Valverde MD, 05/23/2024 2:16 PM Narrative 05/23/2024 2:22 PM [place] [address] Examination: Single view abdomen Exam time: ??0737 [...] Procedure Note Quincy Valverde MD - 05/23/2024 [place] [address] Examination: Single view abdomen Exam time: 0737 [...] By: Quincy Valverde MD, 05/23/2024 2:16 PM Elisabeth Patiño [employer]EL[employer] [facility] Final Result * (ABNORMAL) URINALYSIS (04/30/2024 10:10 AM PSYCHOLOGIST COUNSELING) COLOR (U) JADON 04/30/2024 10:51 AM [facility] TRANSPARENCY CLOUDY 04/30/2024 10:51 AM [facility] SPECIFIC GRAVITY (U) 1.025 1.002 - 1.030 04/30/2024 10:51 AM [facility] U PH 6.0 4.5 - 8.0 04/30/2024 10:51 AM [facility] LEUKOCYTES (U) NEGATIVE NEGATIVE 04/30/2024 10:51 AM [facility] NITRITES NEGATIVE NEGATIVE 04/30/2024 10:51 AM [facility] PROTEIN RANDOM (U) 2+(A) NEGATIVE 04/30/2024 10:51 AM [facility] GLUCOSE (U) NEGATIVE NEGATIVE 04/30/2024 10:51 AM [facility] () [facility] KETONES MG/DL (U) NEGATIVE NEGATIVE 04/30/2024 10:51 AM [facility] UROBILINOGEN NORMAL NORMAL EU/DL 04/30/2024 10:51 AM [facility] BILIRUBIN (U) NEGATIVE NEGATIVE 04/30/2024 10:51 AM [facility] BLOOD (U) 5+(A) NEGATIVE 04/30/2024 10:51 AM PSYCHOLOGIST COUNSELING [facility] WBC/HPF 0-5 /HPF 04/30/2024 10:51 AM PSYCHOLOGIST COUNSELING [facility] () [facility] RBC/HPF 100-200 /HPF 04/30/2024 10:51 AM PSYCHOLOGIST COUNSELING [facility] EPI/HPF 0-5 /HPF 04/30/2024 10:51 AM PSYCHOLOGIST COUNSELING [facility] () [facility] BACTERIA (U) 1+ /HPF 04/30/2024 10:51 AM PSYCHOLOGIST COUNSELING [facility] URINE SPECIMEN OBTAINED BY CLEAN CATCH PROCEDURE / Unknown 04/30/2024 10:10 AM PSYCHOLOGIST COUNSELING us Yuridia Marshall MD URINE ORDERABLES Final Res ult [facility] [address] [place] [address], [place] [phone] * CT ABD+PEL KIDNEY STONE (04/30/2024 10:09 AM PSYCHOLOGIST COUNSELING) Anatomical Region Laterality Modality Abdomen Computed Tomogra phy 04/30/2024 10:1 2 AM PSYCHOLOGIST COUNSELING Impressions 04/30/2024 10:19 AM PSYCHOLOGIST COUNSELING IMPRESSION: 1. Right-sided hydronephrosis secondary to an [...] 04/30/2024 10:12 AM Narrative 04/30/2024 10:19 AM PSYCHOLOGIST COUNSELING [facility] [address] [place] [address] DATE: 04/30/2024 9:34 AM EXAMINATION: CT Abdomen [...] Procedure Note Saturnino Heath MD - 04/30/2024 [facility] [address] [place] [address] DATE: 04/30/2024 9:34 AM EXAMINATION: CT Abdomen [...] (ABNORMAL) CBC W/DIFF AUTOMATED (04/30/2024 9:41 AM PSYCHOLOGIST COUNSELING) WBC 10.02 4.50 - 11.00 x10'3/uL 04/30/2024 9:45 AM PSYCHOLOGIST COUNSELING [facility] RBC 5.16 4.70 - 6.10 x10'6/uL 04/30/2024 9:45 AM [facility] HGB 15.7 14.0 - 18.0 G/DL 04/30/2024 9:45 AM [facility] HCT 45.0 43.0 - 54.0 % 04/30/2024 9:45 AM [facility] MCV 87.2 80.0 - 94.0 FL 04/30/2024 9:45 AM [facility] MCH 30.4 27.0 - 31.0 PG 04/30/2024 9:45 AM [facility] MCHC 34.9 32.0 - 36.0 G/DL 04/30/2024 9:45 AM [facility] RDW 11.8 11.5 - 14.5 % 04/30/2024 9:45 AM [facility] PLT 200 130 - 400 x10'3/uL 04/30/2024 9:45 AM [facility] MPV 9.7 9.3 - 12.2 FL 04/30/2024 9:45 AM [facility] CBC COMMENT AUTOMATED RBC MORPHOLOGY AND PLATELET EVALUATION NORMAL 04/30/2024 9:45 AM [facility] NEUTROPHILS % 71.6 % 04/30/2024 9:45 AM [facility] LYMPHOCYTES % 13.5 % 04/30/2024 9:45 AM [facility] MONOCYTES % 12.1 % 04/30/2024 9:45 AM [facility] EOSINOPHILS 1.7 % 04/30/2024 9:45 AM [facility] BASOPHILS 0.5 % 04/30/2024 9:45 AM [facility] IMMATURE GRANS % 0.6 % 04/30/20 9:45 AM [facility] NRBC % 0.0 % 04/30/2024 9:45 AM [facility] ABS. NEUTROPHILS TOTAL 7.18 1.80 - 7.70 x10'3/uL 04/30/2024 9:45 AM [facility] ABS. LYMPHOCYTES 1.35 1.00 - 4.80 x10'3/uL 04/30/2024 9:45 AM [facility] ABS. MONOCYTES 1.21(H) 0.30 - 0.82 x10'3/uL 04/30/2024 9:45 AM [facility] ABS. EOSINOPHILS 0.17 0.04 - 0.54 x10'3/uL 04/30/2024 9:45 AM [facility] ABS. BASOPHILS 0.05 0.01 - 0.08 x10'3/uL 04/30/2024 9:45 AM [facility] ABS. IMMATURE GRANULOCYTES 0.06 0.00 - 0.49 x10'3/uL 04/30/2024 9:45 AM [facility] ABS. NUCLEATED RBC'S 0.00 0.00 - 0.01 x10'3/uL 04/30/2024 9:45 AM [facility] 04/30/2024 9:41 AM PSYCHOLOGIST COUNSELING us Yuridia Marshall MD LABORATORY Final Resu lt [facility] [address] [place] [address], [place] [phone] * (ABNORMAL) COMPREHENSIVE METABOLIC PANEL (04/30/2024 9:32 AM PSYCHOLOGIST COUNSELING) GLUCOSE 110(H) 70 - 99 MG/DL 04/30/2024 10:03 AM [facility] BUN 14 7 - 18 MG/DL 04/30/2024 10:03 AM [facility] CREATININE S/P/B 1.24 0.7 - 1.3 MG/DL 04/30/2024 10:03 AM [facility] SODIUM S/P/B 142 136 - 145 MMOL/L 04/30/2024 10:03 AM [facility] POTASSIUM S/P/B 3.6 3.5 - 5.1 MMOL/L 04/30/2024 10:03 AM [facility] CHLORIDE S/P/B 102 100 - 108 MMOL/L 04/30/2024 10:03 AM [facility] CO2 30.3 21 - 32 MMOL/L 04/30/2024 10:03 AM [facility] CALCIUM S/P/B 9.1 8.5 - 10.1 MG/DL 04/30/2024 10:03 AM [facility] BILIRUBIN TOTAL S/P/B 0.7 0.2 - 1.2 MG/DL 04/30/2024 10:03 AM [facility] Comment: THIS ASSAY IS NOT RECOMMENDED FOR PATIENTS UNDERGOING TREATMENT WITH ELTROMBOPAG DUE TO THE POTENTIAL FOR FALSELY ELEVATED RESULTS. TOTAL PROTEIN S/P/B 7.7 6.4 - 8.2 G/DL 04/30/2024 10:03 AM [facility] ALBUMIN S/P/B 4.1 3.4 - 5.0 G/DL 04/30/2024 10:03 AM [facility] AST 33 15 - 37 U/L 04/30/2024 10:03 AM [facility] ALT 71(H) 16 - 60 U/L 04/30/2024 10:03 AM [facility] ALKALINE PHOSPHATASE S/P/B 72 50 - 136 U/L 04/30/2024 10:03 AM [facility] ANION GAP 9.7 5 - 15 MMOL/L 04/30/2024 10:03 AM [facility] BUN CREATININE RATIO 11.3 6 - 26 04/30/2024 10:03 AM [facility] A/G RATIO 1.1 1.0 - 2.0 RATIO 04/30/2024 10:03 AM [facility] GFR ESTIMATE 69(L) >90 ML/MIN/1.7 3 M2 04/30/2024 10:03 AM [facility] Comment: NOTE: eGFR is not calculated for patients <18 years of age. This is an estimated GFR calculation using the new CKD EPI creatinine equation without race and so does not require a correction factor for race. This estimated GFR should not be used for calculating drug doses. 04/30/2024 9:32 AM PSYCHOLOGIST COUNSELING us Yuridia Marshall MD LABORATORY Final Resu lt [facility] [address] [place] [address], [place] [phone] * LIPASE (04/30/2024 9:32 AM PSYCHOLOGIST COUNSELING) LIPASE 55 16 - 77 UNITS/L 04/30/2024 10:03 AM PSYCHOLOGIST COUNSELING [facility] 04/30/2024 9:32 AM PSYCHOLOGIST COUNSELING us Yuridia Marshall MD LABORATORY Final Resu lt [facility] [address] [place] [address], [place] [phone] * COLONOSCOPY/EGD (06/17/2018) us Documents Scanned SCANNING Final Result * HEPATITIS C ANTIBODY (09/04/2009 6:29 AM CDT) HEPATITIS C AB NON-REACTI VE (NR) [facility] TO EPIC CONVERSION 09/04/2009 6:29 AM CDT 09/04/2009 6:29 AM CDT Narrative [facility] TO EPIC CONVERSION - 09/04/2009 6:29 AM CDT [AUTO]: This test was reviewed. us Ericka Savage MD LABORATORY Final Res ult Performing Organization Address City/[facility]/ZIP Co de Phone Number [facility] TO EPIC CONVERSION from Last 3 Months or Most Recently Relevant to Health Maintenance [place] [place] [address] Care Teams Special Services Supervisor Relationship Specialty Start Date End Date Aditi Stark, HYDRAULIC REPAIRER- [address] [facility], [address] [place], [place] [id number] PCP - General NURSE PRACTITIONER 05/14/20
--- OUTSIDE RECORDS SUMMARY | 2024-06-17 01:24 | XMS_ITS | Referral Summary ---
Author Organization [address] Address [address] [place] [phone] Care Team Providers Care Fish And Wildlife Scientific Aid Name Role Phone Fahad Stanley MD Primary Care Provider Encounters Date Type Department Care Team Description 05/05/2024 Telephone [facility] Pulmonary [address] [phone] Lex Thompson MD Orders Only 05/05/2024 3:00 PM PLAYGROUND DIRECTOR Office Visit [facility] Pulmonary [address] [phone] Lex Thompson MD Obstructive sleep [...] 11/12/2021 Assessment & Plan (05/05/2024 3:01 PM PLAYGROUND DIRECTOR): The patient continues to benefit from CPAP [...] year. Assessment & Plan (05/07/2023 3:46 PM PLAYGROUND DIRECTOR): The patient continues to benefit from CPAP at 16 cm water pressure for ongoing symptoms SEVERO. His DME supplier is [employer]. He will follow up here in 1 year. Assessment & Plan (05/06/2022 3:32 PM PLAYGROUND DIRECTOR): The patient continues to benefit from CPAP [...] on file Legal Sex Male 8:43 PM PLAYGROUND DIRECTOR Gender Identity Not on file Sexual Orientation Not on file Last Filed Vital Signs Vital Sign Reading Time Taken Comments Blood Pressure 118/70 05/05/2024 2:42 PM PLAYGROUND DIRECTOR Pulse 64 05/05/2024 2:42 PM PLAYGROUND DIRECTOR Temperature 36.3 ??C (97.4 ??F) 05/05/2024 2:42 PM CS T Respiratory Rate 18 05/05/2024 2:42 PM PLAYGROUND DIRECTOR Oxygen Saturation 97% 05/05/2024 2:42 PM PLAYGROUND DIRECTOR Inhaled Oxygen Concentration - - Weight 124.3 kg (274 lb) 05/05/2024 2:42 PM PLAYGROUND DIRECTOR Height 185.4 cm (6' 1 ) 05/05/2024 2:42 PM PLAYGROUND DIRECTOR Body Mass Index 36.15 05/05/2024 2:42 PM PLAYGROUND DIRECTOR Plan of Treatment Not on file Insurance [facility] OOS Care Teams Fish And Wildlife Scientific Aid Relationship Specialty Start Date End Date Fahad Stanley MD [address] [place] [address] PCP - General 06/21/20
--- OUTSIDE RECORDS SUMMARY | 2024-06-17 01:24 | XMS_ITS | Encounter Summary ---
Author Organization [facility] Address [facility] [place] [address] Care Team Providers Care Iron Plastic Bullet Maker Name Role Phone Aditi Stark PARALLEL COMPUTING SOFTWARE ENGINEER-CUSTODIAL MANAGER Primary Care Provider Reason for Visit * Reason Onset Date Comments MEDICATION REFILL 02/11/2024 Encounter Details Date Type Department Care Team (Late st Contact Info) Description 02/11/2024 Refill [facility] - [address], [place] [address] Heladio Luna III, MD [address] [place] [phone] MEDICATION REFILL Social History Tobacco Use Types [...] Description 10/26/2024 1:30 PM CDT Office Visit [facility] - GI [address] [place] [phone] Irene Barron PA-C [address] [facility] [place] [phone] 04/26/2025 1:30 PM DOCUMENT CONTROL CLERK Office Visit [facility] - [address] [phone] Heladio Luna III, MD [address] [place] [address] [address] [place] [phone] 06/05/2025 8:30 AM DOCUMENT CONTROL CLERK Procedure visit [facility] - [address] [phone] 06/05/2025 9:00 AM DOCUMENT CONTROL CLERK Office Visit [facility] - [address] [phone] Brooke Bernard, PARALLEL COMPUTING SOFTWARE ENGINEER-CUSTODIAL MANAGER [address] [place] [address] [address] DIV OF GASTROENTEROLOGY [place], [place] [phone] documented as of this encounter Goals Goal Patient Goal Type Associated Problems Recent Progress Patient-Stated? Author Medication Management General On track( 024 2:03 PM DOCUMENT CONTROL CLERK) Jude Villegas, RN Note: Expected end date: Interventions: Take all medications as prescribed Let your doctor know right away about any changes in your medications Make sure to request a refill of your medication at least one week prior to your last dose documented as of this encounter Visit Diagnoses Not on filedocumented in this encounter Care Teams Iron Plastic Bullet Maker Relationship Specialty Start Date End Date Aditi Stark, PARALLEL COMPUTING SOFTWARE ENGINEER-CUSTODIAL MANAGER [address] [facility], [address] [place] [address] PCP - General Nurse Practitioner 12/08/22 documented as of this encounter
--- OUTSIDE RECORDS SUMMARY | 2024-06-17 01:24 | XMS_ITS | Encounter Summary ---
Author Organization [facility] Address [address] [facility] [place] [address] [place] [address] Care Team Providers Care Watch Crystal Cutter Name Role Phone Lawson Mathew MD Primary Care Provider Unavailable Shannon Carr MD Primary Care Provider Un available Aditi Stark [facility] Primary Care Provider + Encounter Details Date Type Department Care Team (Late Contact Info) Description 09/26/[address] [facility] Clinics Conversion , Generic Conversion, Social [...] Description 10/20/2024 7:20 AM CDT Office Visit [facility] [address] [place] [phone] Aditi Stark, [facility] [address] [facility], [address] [place] [address] 05/03/2025 8:00 AM CRIME SCENE EVIDENCE TECHNICIAN Appointment [facility] [address] [place] [address] Aditi Stark, [facility] [address] [facility], [address] [place], [place] [phone] documented as of this encounter Visit Diagnoses Not on filedocumented in this encounter Care Teams Watch Crystal Cutter Relationship Specialty Start Date End Date Lawson Mathew MD PCP - General FAMILY PRACTICE 04/27/18 05/04/18 Shannon Carr MD PCP - General INTERNAL MEDICINE 05/05/18 05/13/20 Aditi Stark, [facility] [address] [facility], [address] [place] [address] PCP - General NURSE PRACTITIONER 05/14/20 documented as of this encounter
--- OUTSIDE RECORDS SUMMARY | 2024-06-17 01:24 | XMS_ITS | Encounter Summary ---
Author Organization [facility] Address [address] [place] [address] [place] [address] Care Team Providers Care Roller Checker Name Role Phone Lawson Mathew MD Primary Care Provider Unavailable Shannon Carr MD Primary Care Provider Un available Aditi Stark [facility] Primary Care Provider + Encounter Details Date Type Department Care Team (Late Contact Info) Description 10/04/2009 Abstract [facility] Clinics Conversion , Generic Conversion, Social History [...] Description 10/20/2024 7:20 AM CDT Office Visit [facility] [address] [place] [phone] Aditi Stark, [facility] [address] [facility], [address] [place] [address] 05/03/2025 8:00 AM PRESIDENT COLLEGE OR UNIVERSITY Appointment [facility] [address] [place] [address] Aditi Stark, [facility] [address] [facility], [address] [place], [place] [phone] documented as of this encounter Visit Diagnoses Not on filedocumented in this encounter Care Teams Roller Checker Relationship Specialty Start Date End Date Lawson Mathew MD PCP - General FAMILY PRACTICE 04/27/18 05/04/18 Shannon Carr MD PCP - General INTERNAL MEDICINE 05/05/18 05/13/20 Aditi Stark, [facility] [address] [facility], [address] [place] [address] PCP - General NURSE PRACTITIONER 05/14/20 documented as of this encounter
[2024-06-17] MEDS: LACTATED RINGERS 1,000 ML 30 ML IV CONT ×2 (06:30→08:30)
--- NOTE | 2024-06-17 07:24 | WPDHPUPDATE1 ---
History and Physical Update Update Date/Time: 06/17/24 07:24 History and Physical has been reviewed, including an updated exam of the patient. There are NO changes in the patient's condition. Risks, benefits, and alternatives have been discussed and questions answered. Patient agrees to proceed with procedure. ESWL right ureteral calculus
[2024-06-17] MEDS: ceFAZolin 3 GM/D5W 100 ML 100 ML IVPB (07:30)
--- NOTE | 2024-06-17 08:00 | P.PNAN_ITS ---
Anes - Initial Pre Proc Eval Procedure: Operation Date: 06/17/24 07:30 Proposed Procedures p Right Extracorporeal Shock Wave Lithotripsy, - Kyler Castro MD s Possible Cystoscopy Right Retrograde Pyelogram, Right Ureteroscopy ,Right Stent Placement, Possible Holmium Laser Procedure - Kyler Castro MD Date/Time: 06/17/24 08:00 Surgeon: Kyler Castro MD Pre Op Diagnosis: right upj stone Patient Data Age: 53 Gender: M Height: 1.85 m Weight: 122.8 kg Last Vital Signs Temp 36.5 C 06/17/24 06:15 Pulse 67 06/17/24 06:15 Resp 16 06/17/24 06:15 BP 137/93 H 06/17/24 06:15 Pulse Ox 98 06/17/24 06:15 Allergies Allergy/AdvReac Type Severity Reaction Status Date / Time aspirin AdvReac epistaxis Verified 06/17/24 06:40 Penicillins AdvReac Fainting Verified 06/17/24 06:40 Home Medications ?Medication ?Instructions ?Recorded ?Confirmed ?Type albuterol 90 mcg-budesonide 80 2 inh inhalation QID PRN asthma 06/07/24 06/07/24 History mcg/actuation HFA aerosol inhaler (Airsupra) amlodipine 10 mg tablet 10 mg PO DAILY 06/07/24 06/17/24 History carvedilol 12.5 mg tablet 12.5 mg PO BID 06/07/24 06/17/24 History lisinopril 40 mg tablet 40 mg PO DAILY 06/07/24 06/17/24 History tamsulosin 0.4 mg capsule 0.4 mg PO Q24H 06/07/24 06/17/24 History tirzepatide (weight loss) 12.5 12.5 mg subcut WEEKLY 06/07/24 06/17/24 History mg/0.5 mL subcutaneous pen injector (Zepbound) tramadol 50 mg tablet 50 mg PO Q6H PRN pain 06/07/24 06/07/24 History tretinoin 0.1 % topical cream 1 applic topical PRN PRN acne 06/07/24 06/07/24 History Patient hx anesthesia problems: none Family hx anesthesia problems: none Results Review: All pre-operative results and documents have been reviewed as part of the pre- operative evaluation. [facility] Social History Social History Smoking status: Never smoker Alcohol intake: current Drinks per week: 2 Living arrangements: with family Spiritual care concerns: No Anes - Eval Final PreProcedure Day of Procedure 06/17/24 08:00 Patient weight: obese Heart: regular rate and rhythm Lungs: clear to auscultation Airway: Mallampati scale class II Neurological: alert and oriented Last oral intake: >/= 8 hours ASA classification: III Emergent: no Anesthetic plan: proceed Anesthesia type and monitoring: general LMA and standard monitoring Results Review: All pre-operative results and documents have been reviewed as part of the pre- operative evaluation. Informed Consent: The patient's anesthetic plan and its attendant risks and benefits were discussed with the patient/family/POA. Questions were solicited and answers provided to the satisfaction of the patient/family/POA.
--- NOTE | 2024-06-17 08:11 | W.PM.PROC2 ---
Procedure Note - Detailed Date of Procedure 06/17/24 Pre-op Diagnosis right ureteral calculus 5 mm Post-op Diagnosis Same Procedure Performed Lithotripsy of right ureteral calculus Surgeon Kyler Castro MD Anesthesia General Description of Procedure Patient was taken to the operative suite correctly identified. Once anesthesia was obtained the stone was localized in both planes. After 1200 shocks the patient's heart rate showed some ectopy. He was then gated for the rest of the treatment without any difficulty. Three thousand shocks were given. There appeared to be good fragmentation. Patient tolerated well and was taken recovery stable condition. He will follow-up in 7-10 days with KUB. This completes dictation. Please send a copy of op note to my office Estimated Blood Loss 0 Drains No Packing No Pathology None sent Complications No immediate complications Condition Stable Disposition PACU
== END 2024-06-17 09:57 | disposition home or self-care (01) ==
PROVIDERS: Visit Provider Urology
PROC: (CPT 50590; principal; 2024-06-17 07:30)
DX: N20.1 Calculus of ureter (principal); E66.9 Obesity, unspecified; Z68.35 Body mass index [BMI] 35.0-35.9, adult
CPT/HCPCS: 50590; 74018; J0690; J1100; J2250; J2405; J2704; J3010; J7030; J7120

== ENCOUNTER 2024-07-07 14:28 | Outpatient (CLI) | payer BC, SELFPAY ==
--- NOTE | ~2024-07-07 | XR_ITS ---
EXAMINATION: XR abdomen/kub 1V DATE: 07/07/2024 14:48 INDICATION: Kidney stone. TECHNIQUE: A supine view of the abdomen on 2 radiographs was obtained. COMPARISON: Abdomen radiographs 06/17/2024 FINDINGS: There are no dilated loops of bowel. There is a phlebolith in right pelvis. There is a 3 mm stone in right ureter at L4-L5. IMPRESSION: 1. 3 mm stone in right ureter at L4-L5. Reviewed, dictated and finalized at location [facility]. [facility]
--- OUTSIDE RECORDS SUMMARY | 2024-07-07 14:32 | XMS_ITS | Referral Summary ---
Author Organization [address] Address [address] [place] [id number] Care Team Providers Care Mechanical Integrity Engineer Name Role Phone Fahad Stanley MD Primary Care Provider [phone] Encounters Date Type Department Care Team Description 05/05/2024 Telephone [facility] Pulmonary [address] [phone] Lex Thompson MD Orders Only 05/05/2024 3:00 PM LIFE EDUCATOR Office Visit [facility] Medical [facility] Pulmonary [address] [phone] Lex Thompson MD Obstructive sleep [...] 11/12/2021 Assessment & Plan (05/05/2024 3:01 PM LIFE EDUCATOR): The patient continues to benefit from CPAP [...] year. Assessment & Plan (05/07/2023 3:46 PM LIFE EDUCATOR): The patient continues to benefit from CPAP at 16 cm water pressure for ongoing symptoms SEVERO. His DME supplier is [employer]. He will follow up here in 1 year. Assessment & Plan (05/06/2022 3:32 PM LIFE EDUCATOR): The patient continues to benefit from CPAP [...] on file Legal Sex Male 8:43 PM LIFE EDUCATOR Gender Identity Not on file Sexual Orientation Not on file Last Filed Vital Signs Vital Sign Reading Time Taken Comments Blood Pressure 118/70 05/05/2024 2:42 PM LIFE EDUCATOR Pulse 64 05/05/2024 2:42 PM LIFE EDUCATOR Temperature 36.3 C (97.4 F) 05/05/2024 2:42 PM LIFE EDUCATOR Respiratory Rate 18 05/05/2024 2:42 PM LIFE EDUCATOR Oxygen Saturation 97% 05/05/2024 2:42 PM LIFE EDUCATOR Inhaled Oxygen Concentration - - Weight 124.3 kg (274 lb) 05/05/2024 2:42 PM LIFE EDUCATOR Height 185.4 cm (6' 1 ) 05/05/2024 2:42 PM LIFE EDUCATOR Body Mass Index 36.15 05/05/2024 2:42 PM LIFE EDUCATOR Plan of Treatment Not on file Insurance [facility] CHOICE OOS Care Teams Mechanical Integrity Engineer Relationship Specialty Start Date End Date Fahad Stanley MD [address] [place] [address] PCP - General 06/21/20
--- OUTSIDE RECORDS SUMMARY | 2024-07-07 14:32 | XMS_ITS | Clinical Summary ---
Author Organization [address] Address [address] [place] [phone] Care Team Providers Care Portable Machine Sander Name Role Phone Fahad Stanley MD Primary Care Provider [phone] Allergies Active Allergy Reactions Criticality Noted Date [...] 11/12/2021 Assessment & Plan (05/05/2024 3:01 PM MANAGER PRIMARY CARE): The patient continues to benefit from CPAP [...] year. Assessment & Plan (05/07/2023 3:46 PM MANAGER PRIMARY CARE): The patient continues to benefit from CPAP at 16 cm water pressure for ongoing symptoms SEVERO. His DME supplier is [employer]. He will follow up here in 1 year. Assessment & Plan (05/06/2022 3:32 PM MANAGER PRIMARY CARE): The patient continues to benefit from CPAP at 16 cm water pressure. His DME supplier is [employer]. He will follow-up with me in 1 year. Assessment & Plan (11/12/2021 3:45 PM CDT): I did order the patient new CPAP set at 16 cm water pressure while sleeping. His DME is [facility]. Encounters Date Type Department Care Team Description 05/05/2024 3:00 PM MANAGER PRIMARY CARE Office Visit [facility] Medical [facility] Pulmonary [address] [phone] Lex Thompson MD Obstructive sleep apnea (Primary Dx) 05/05/2024 Telephone [facility] Pulmonary [address] [phone] Lex Thompson MD Orders Only from Last 3 Months Social History Tobacco Use Types Packs/Day Years Used Date Smoking Tobacco: Never Tobacco Cessation:Counseling Given: Not Answered Sex and Gender Information Value Date Recorded Sex Assigned at Not on file Legal Sex Male 8:43 PM MANAGER PRIMARY CARE Gender Identity Not on file Sexual Orientation Not on file Obstetrics History Last Filed Vital Signs Vital Sign Reading Time Taken Comments Blood Pressure 118/70 05/05/2024 2:42 PM MANAGER PRIMARY CARE Pulse 64 05/05/2024 2:42 PM MANAGER PRIMARY CARE Temperature 36.3 C (97.4 F) 05/05/2024 2:42 PM MANAGER PRIMARY CARE Respiratory Rate 18 05/05/2024 2:42 PM MANAGER PRIMARY CARE Oxygen Saturation 97% 05/05/2024 2:42 PM MANAGER PRIMARY CARE Inhaled Oxygen Concentration - - Weight 124.3 kg (274 lb) 05/05/2024 2:42 PM MANAGER PRIMARY CARE Height 185.4 cm (6' 1 ) 05/05/2024 2:42 PM MANAGER PRIMARY CARE Body Mass Index 36.15 05/05/2024 2:42 PM MANAGER PRIMARY CARE Plan of Treatment Health Maintenance Due Date [...] , 03/11/2021, 04/19/2019, Additional history exists Insurance [facility] CHOICE OOS Care Teams Portable Machine Sander Relationship Specialty Start Date End Date Fahad Stanley MD [address] [place] [address] PCP - General 06/21/20
--- OUTSIDE RECORDS SUMMARY | 2024-07-07 14:33 | XMS_ITS | Clinical Summary ---
Author Organization [facility] Address [address] [place] [address] Care Team Providers Care Student Accounts Coordinator Name Role Phone Aditi Stark [facility] Primary Care Provider + Allergies Active Allergy Reactions Criticality Noted Date Comments Aspirin Other (see comment) 03/20/2011 Patient stated that he got nose bleeds from the asa. Penicillin G Unknown 03/20/2011 Patient passed out from the shot Medications CPAP MACHINE Active tirzepatide (ZEPBOUND) 15 MG/0.5ML injection Inject 15 mg into the skin every 7 days. 04/13/20 24 Active ondansetron (ZOFRAN) 4 MG tablet Take 1 tablet (4 mg total) by mouth every 8 (eight) hours as needed for Nausea. 20 tablet 04/30/20 24 Active psyllium 0.52 g capsule Take 1 capsule (520 mg total) by mouth. 04/20/20 24 025 Active tamsulosin (FLOMAX) 0.4 MG CapIndications:R enal calculi Take 1 capsule (0.4 mg total) by mouth daily. 30 capsule 1 05/03/20 24 Active Albuterol-Budeso nide (AIRSUPRA) 90-80 MCG/ACT AerosolIndicatio ns:Mild persistent asthma without complication (HHS/HCC) Inhale 2 puffs into the lungs every 4 (four) hours as needed. 32.1 g 1 05/03/20 24 Active amLODIPine (NORVASC) 10 MG tabletIndication s:Essential hypertension Take 1 tablet (10 mg total) by mouth daily. 90 tablet 3 05/03/20 24 Active lisinopril (PRINIVIL) 40 MG tabletIndication s:Essential hypertension Take 1 tablet (40 mg total) by mouth daily. 90 tablet 3 05/03/20 24 Active traMADol (ULTRAM) 50 MG tablet Take 1 tablet (50 mg total) by mouth every 6 (six) hours as needed. FOR PAIN Active benzonatate (TESSALON) 200 MG capsuleIndicatio ns:Acute cough Take 1 capsule (200 mg total) by mouth 3 (three) times daily as needed. 30 capsule 06/30/19 25 025 Active carvedilol (COREG) 12.5 MG tabletIndication s:Essential hypertension TAKE 1 TABLET TWICE A DAY 180 tablet 1 07/07/19 25 Active carvedilol (COREG) 12.5 MG tabletIndication s:Essential hypertension Take 1 tablet (12.5 mg total) by mouth 2 (two) times daily. 60 tablet 3 05/03/20 24 025 Discontinued oseltamivir (TAMIFLU) 75 MG capsuleIndicatio ns:Influenza A Take 1 capsule (75 mg total) by mouth 2 (two) times daily for 5 days. 10 capsule 06/20/19 25 025 diphenoxylate-at ropine (LOMOTIL) 2.5-0.025 MG tabletIndication s:Diarrhea of infectious origin Take 1 tablet by mouth 4 (four) times daily as needed for Diarrhea. 40 tablet 06/20/19 25 025 Active Problems Problem Noted Date Diagnosed Date [...] Encounters Date Type Department Care Team Description 06/30/2024 7:40 AM CELL ATTENDANT Office Visit [address] [place] [address] Aditi Stark, HVAC INSTRUCTOR-ANGELES Cough (1 week, FLU A on 06/20 ) 06/30/2024 Travel 06/20/2024 11:40 AM CELL ATTENDANT Office Visit [address] [place] [address] Aditi Stark, HVAC INSTRUCTOR-ANGELES Diarrhea (No appetite, fatigue> Thursday ) 06/20/2024 Travel 06/17/2024 Scan HEALTH INFO SRVCS Scanned, [facility] Procedure (SCAN) 06/06/2024 Scan MG HEALTH INFO SRVCS Scanned, [facility] 05/24/[address] [place] [address] Aditi Stark FNP-ANGELES Results 05/23/2024 7:39 AM CELL ATTENDANT - 05/23/2024 11:59 PM CELL ATTENDANT Hospital Encounter [facility] MRI [address] [place] [address] Aditi Stark FNP-ANGELES Discharge Disposition: Home or Self Care (Routine Discharge) 05/23/2024 Travel 05/05/2024 Scan [facility] HEALTH INFO SRVCS Scanned, [facility] 05/05/[address] [place] [address] Aditi Stark FNP-ANGLEES Medication Request 05/03/2024 11:20 AM CELL ATTENDANT Office Visit [address] [place] [address] Aditi Stark FNP-ANGELES Follow Up (ER) 05/03/2024 Telephone [facility] [address] [place] [address] Aditi Stark FNP-BC Orders 05/03/2024 Travel 04/30/2024 9:16 AM CELL ATTENDANT - 04/30/2024 11:08 AM CELL ATTENDANT Emergency [facility] Emergency Room [address] [place] [address] Yuridia Marshall MD Flank Pain Discharge Disposition: Home or Self Care (Routine Discharge) 04/18/2024 7:40 AM CELL ATTENDANT Office Visit [facility] [address] [place] [address] Aditi Stark FNP-BC Physical (Annual ) 04/18/2024 [...] Date Recorded Patient Health Questionnaire-2 Score 0 06/30/2024 Sex and Gender Information Value Date Recorded Sex Assigned at Male 06/30/2024 7:34 AM CELL ATTENDANT Legal Sex Male 7:57 PM CDT Gender Identity Male 08/12/2021 1:26 PM CDT Sexual Orientation Straight 08/12/2021 1: 26 PM CDT Last Filed Vital Signs Vital Sign Reading Time Taken Comments Blood Pressure 113/76 06/30/2024 7:50 AM CELL ATTENDANT Pulse 67 06/30/2024 7:50 AM CELL ATTENDANT Temperature 36.4 C (97.5 F) 06/30/2024 7:39 AM CELL ATTENDANT Respiratory Rate 18 06/30/2024 7:39 AM CELL ATTENDANT Oxygen Saturation 97% 06/30/2024 7:39 AM CELL ATTENDANT Inhaled Oxygen Concentration - - Weight 122.1 kg (269 lb 3.2 oz) 06/30/2024 7:39 AM CELL ATTENDANT Height 180.3 cm (5' 11 ) 06/30/2024 7:39 AM CELL ATTENDANT Body Mass Index 37.55 06/30/2024 7:39 AM CELL ATTENDANT Plan of Treatment Upcoming Encounters Date Type Department Care Team (Late st Contact Info) Description 10/20/2024 7:20 AM CDT Office Visit [facility] [address] [place] [address] Aditi Stark, [facility] [address] [facility], [facility] [address] [place] [address] 05/03/2025 8:00 AM CELL ATTENDANT Appointment [facility] [address] [facility] [place] [address] Aditi Stark, [facility] [address] [facility], [facility] [address] [place] [address] Health Maintenance Due Date Last Done Comments Hepatitis B Vaccines (1 of 3 - 19+ 3-dose series) 1987 Pneumococcal Vaccine: Pediatrics (0 to 5 Years) and At-Risk Patients (6 to 64 Years) (2 of 2 - PCV) 06/10/2013 06/10/2012 Zoster Vaccines (1 of 2) 2018 DTaP, Tdap and Td Vaccines (2 - Td or Tdap) 10/30/2020 10/30/2010 COVID-19 Vaccine ( season) 2024 03/22/2021, 06/12/2020, 05/15/2020 Influenza Adult (#1) 2024 04/03/2022, 03/11/2021, 04/19/2019, Additional history exists Annual Physical 04/20/2024 04/20/2023, 10/17, 05/05/2018 Colorectal Cancer Screening Colonoscopy (10 Years) 07/03/2033 07/03/2023, 06/17/2018 Hepatitis C Completed 07/22/2016, 09/04/2009 PHQ-2 (Physician Crow) Completed 06/30/2024 Meningococcal B Vaccine Aged Out No l onger eligible based on patient's age to complete this topic Meningococcal Vaccine Aged Out No ximena ivette eligible based on patient's age to complete this topic RSV Immunizations Under 20 Months Aged Out No longer eligible based on patient's age to complete this topic Medical Devices Implanted Type Area Protective Officer Device Identifier Shelf Expiration Date Model / Serial / Lot Mesh Mesh Right: Groin Procedures Procedure Name Priority Date/Time Associated Diagnosis Comments CORONAVIRUS (COVID-19) INFLUENZA A & B ANTIGEN IA PANEL Routine 06/20/2024 Acute cough PROCEDURE GENERIC (SCAN ORDER) 06/17/2024 MRI ABD WWO CON Routine 05/23/2024 8:54 AM CELL ATTENDANT Renal lesion XR ABD KUB Routine 05/23/2024 7:58 AM CELL ATTENDANT Calculus of ureter HC URINALYSIS AUTO W/O MICRO STAT 04/30/2024 10:[address] ABD+PEL KIDNEY STONE STAT 04/30/2024 10:09 AM CELL ATTENDANT CBC W/DIFF AUTOMATED STAT 04/30/2024 9:41 AM CELL ATTENDANT LIPASE STAT 04/30/2024 9:32 AM CELL ATTENDANT COMPREHENSIVE METABOLIC PANEL STAT 04/30/2024 9:32 AM CELL ATTENDANT COLONOSCOPY/EGD GENERIC (SCAN ORDER) Routine 06/17/2018 HEPATITIS C ANTIBODY Routine 09/04/2009 6:29 AM CDT from Last 3 Months or Most Recently Relevant to Health Maintenance Results * (ABNORMAL) CORONAVIRUS (COVID-19) INFLUENZA A & B ANTIGEN IA PANEL (06/20/2024) CORONAVIRUS ANTIGEN IA NEGATIVE NEGATIVE [facility] [address] [facility] ([address]), [place] INFLUENZA A POSITIVE(A) NEGATIVE [facility] (9401), [place] INFLUENZA B NEGATIVE NEGATIVE [facility] ([address]), [place] Internal Control: VALID VALID [facility] ([address]), [place] NASAL STRUCTURE / Unknown 06/20/2024 Aditi Stark HVAC INSTRUCTOR-BC MICROBIOLOGY - GENERAL O RDERABLES Final Result [facility] ([address]), [place] [address] [place] [address], * PROCEDURE GENERIC (SCAN ORDER) (06/17/2024) 06/17/2024 [facility] Scanned SCANNING Final Resu lt * MRI ABD WWO CON (05/23/2024 8:54 AM CELL ATTENDANT) Anatomical Region Laterality Modality Abdomen Magnetic Resonan ce 05/23/2024 2:30 PM CELL ATTENDANT Impressions 05/23/2024 2:49 PM CELL ATTENDANT IMPRESSION:===== 1. Small bilateral renal cysts without suspicious features. No follow-up required. 2. Persistent right hydronephrosis with obstructing calculus of the right proximal ureter. 3. Mild hepatomegaly with diffuse fatty steatosis. 4. Multiple hepatic cysts. 5. Small hiatal hernia. 6. Diverticulosis of the colon. Referred By: ADITI STARK Interpreted By: Nahun Buck MD, 05/23/2024 2:30 PM Narrative 05/23/2024 2:49 PM CELL ATTENDANT [address] [address] EXAMINATION: MRI abdomen with and without contrast [...] Procedure Note Nahun Buck MD - 05/23/2024 [facility] [address] [place] [address] EXAMINATION: MRI abdomen with and without contrast [...] By: Nahun Buck MD, 05/23/2024 2:30 PM Aditi Stark HVAC INSTRUCTOR-BC MRI Final Re sult * XR ABD KUB (05/23/2024 7:58 AM CELL ATTENDANT) Anatomical Region Laterality Modality Abdomen Radiographic Almita ging 05/23/2024 2:16 PM CELL ATTENDANT Impressions 05/23/2024 2:22 PM CELL ATTENDANT Impression: Redemonstrated right UPJ calculus in stable position allowing for the different modalities. Referred By: ADITI STARK Interpreted By: Quincy Valverde MD, 05/23/2024 2:16 PM Narrative 05/23/2024 2:22 PM CELL ATTENDANT [facility] [address] [place] [address] Examination: Single view abdomen Exam time: 0737 hours. Clinical history: Follow-up of urolithiasis. Technique: AP supine view. Comparison: 08/14/2008; CT of the abdomen and pelvis, 04/30/2024. Findings: The visualized lungs are clear. The bowel gas pattern is unremarkable. No organomegaly or mass is identified. Approximately 5 mm right UPJ calculus present on CT projects just caudal to the transverse process of L3, not appreciably changed in position allowing for the different modalities. No other significant calcification is identified. The bony structures are unremarkable for age. Procedure Note Quincy Valverde MD - 05/23/2024 [facility] [address] [place] [address] Examination: Single view abdomen Exam time: 0737 [...] Valverde MD, 05/23/2024 2:16 PM Elisabeth Patiño NP GENERAL IMAGING Final Result * (ABNORMAL) URINALYSIS (04/30/2024 10:10 AM CELL ATTENDANT) COLOR (U) JADON 04/30/2024 10:51 AM [facility] TRANSPARENCY CLOUDY 04/30/2024 10:51 AM [facility] SPECIFIC GRAVITY (U) 1.025 1.002 - 1.030 04/30/2024 10:51 AM [facility] U PH 6.0 4.5 - 8.0 04/30/2024 10:51 AM [facility] LEUKOCYTES (U) NEGATIVE NEGATIVE 04/30/2024 10:51 AM [facility] NITRITES NEGATIVE NEGATIVE 04/30/2024 10:51 AM [facility] PROTEIN RANDOM (U) 2+(A) NEGATIVE 04/30/2024 10:51 AM [facility] GLUCOSE (U) NEGATIVE NEGATIVE 04/30/2024 10:51 AM [facility] KETONES MG/DL (U) NEGATIVE NEGATIVE 04/30/2024 10:51 AM [facility] UROBILINOGEN NORMAL NORMAL EU/DL 04/30/2024 10:51 AM [facility] BILIRUBIN (U) NEGATIVE NEGATIVE 04/30/2024 10:51 AM [facility] BLOOD (U) 5+(A) NEGATIVE 04/30/2024 10:51 AM [facility] WBC/HPF 0-5 /HPF 04/30/2024 10:51 AM [facility] RBC/HPF 100-200 /HPF 04/30/2024 10:51 AM [facility] EPI/HPF 0-5 /HPF 04/30/2024 10:51 AM [facility] BACTERIA (U) 1+ /HPF 04/30/2024 10:51 AM [facility] URINE SPECIMEN OBTAINED BY CLEAN CATCH PROCEDURE / Unknown 04/30/2024 10:10 AM CELL ATTENDANT us Yuridia Marshall MD URINE ORDERABLES Final Res ult [facility] [address] [place] [address], [place] [phone] * CT ABD+PEL KIDNEY STONE (04/30/2024 10:09 AM CELL ATTENDANT) Anatomical Region Laterality Modality Abdomen Computed Tomogra phy 04/30/2024 10:1 2 AM CELL ATTENDANT Impressions 04/30/2024 10:19 AM CELL ATTENDANT IMPRESSION: 1. Right-sided hydronephrosis secondary to an [...] 04/30/2024 10:12 AM Narrative 04/30/2024 10:19 AM CELL ATTENDANT [address] [address] DATE: 04/30/2024 9:34 AM EXAMINATION: CT Abdomen and Pelvis without contrast CLINICAL HISTORY: Right flank pain COMPARISON: 05/31/2023 TECHNIQUE: Computed tomography of the abdomen and pelvis was obtained without administration of intravenous contrast according to routine protocol. A dose lowering technique was used for [...] Procedure Note Saturnino Heath MD - 04/30/2024 [facility] [address] [place] [address] DATE: 04/30/2024 9:34 AM EXAMINATION: CT Abdomen [...] (ABNORMAL) CBC W/DIFF AUTOMATED (04/30/2024 9:41 AM CELL ATTENDANT) WBC 10.02 4.50 - 11.00 x10'3/uL 04/30/2024 9:45 AM CELL ATTENDANT [facility] RBC 5.16 4.70 - 6.10 x10'6/uL 04/30/2024 9:45 AM [facility] HGB 15.7 14.0 - 18.0 G/DL 04/30/2024 9:45 AM [facility] HCT 45.0 43.0 - 54.0 % 04/30/2024 9:45 AM [facility] MCV 87.2 80.0 - 94.0 FL 04/30/2024 9:45 AM [facility] MCH 30.4 27.0 - 31.0 PG 04/30/2024 9:45 AM [facility] MCHC 34.9 32.0 - 36.0 G/DL 04/30/2024 9:45 AM [facility] RDW 11.8 11.5 - 14.5 % 04/30/2024 9:45 AM [facility] PLT 200 130 - 400 x10'3/uL 04/30/2024 9:45 AM [facility] MPV 9.7 9.3 - 12.2 FL 04/30/2024 9:45 AM [facility] CBC COMMENT AUTOMATED RBC MORPHOLOGY AND PLATELET EVALUATION NORMAL 04/30/2024 9:45 AM [facility] NEUTROPHILS % 71.6 % 04/30/2024 9:45 AM [facility] LYMPHOCYTES % 13.5 % 04/30/2024 9:45 AM [facility] MONOCYTES % 12.1 % 04/30/2024 9:45 AM [facility] EOSINOPHILS 1.7 % 04/30/2024 9:45 AM [facility] BASOPHILS 0.5 % 04/30/2024 9:45 AM [facility] IMMATURE GRANS % 0.6 % 04/30/20 24 9:45 AM [facility] NRBC % 0.0 % 04/30/2024 9:45 AM [facility] ABS. NEUTROPHILS TOTAL 7.18 1.80 - 7.70 x10'3/uL 04/30/2024 9:45 AM [facility] ABS. LYMPHOCYTES 1.35 1.00 - 4.80 x10'3/uL 04/30/2024 9:45 AM [facility] ABS. MONOCYTES 1.21(H) 0.30 - 0.82 x10'3/uL 04/30/2024 9:45 AM [facility] ABS. EOSINOPHILS 0.17 0.04 - 0.54 x10'3/uL 04/30/2024 9:45 AM [facility] ABS. BASOPHILS 0.05 0.01 - 0.08 x10'3/uL 04/30/2024 9:45 AM [facility] ABS. IMMATURE GRANULOCYTES 0.06 0.00 - 0.49 x10'3/uL 04/30/2024 9:45 AM [facility] ABS. NUCLEATED RBC'S 0.00 0.00 - 0.01 x10'3/uL 04/30/2024 9:45 AM [facility] 04/30/2024 9:41 AM CELL ATTENDANT us Yuridia Marshall MD LABORATORY Final Resu lt [facility] [address] [place] [address], [place] [phone] * (ABNORMAL) COMPREHENSIVE METABOLIC PANEL (04/30/2024 9:32 AM CELL ATTENDANT) GLUCOSE 110(H) 70 - 99 MG/DL 04/30/2024 10:03 AM [facility] BUN 14 7 - 18 MG/DL 04/30/2024 10:03 AM [facility] CREATININE S/P/B 1.24 0.7 - 1.3 MG/DL 04/30/2024 10:03 AM [facility] SODIUM S/P/B 142 136 - 145 MMOL/L 04/30/2024 10:03 AM [facility] POTASSIUM S/P/B 3.6 3.5 - 5.1 MMOL/L 04/30/2024 10:03 AM [facility] CHLORIDE S/P/B 102 100 - 108 MMOL/L 04/30/2024 10:03 AM [facility] CO2 30.3 21 - 32 MMOL/L 04/30/2024 10:03 AM [facility] CALCIUM S/P/B 9.1 8.5 - 10.1 MG/DL 04/30/2024 10:03 AM [facility] BILIRUBIN TOTAL S/P/B 0.7 0.2 - 1.2 MG/DL 04/30/2024 10:03 AM [facility] Comment: THIS ASSAY IS NOT RECOMMENDED FOR PATIENTS UNDERGOING TREATMENT WITH ELTROMBOPAG DUE TO THE POTENTIAL FOR FALSELY ELEVATED RESULTS. TOTAL PROTEIN S/P/B 7.7 6.4 - 8.2 G/DL 04/30/2024 10:03 AM [facility] ALBUMIN S/P/B 4.1 3.4 - 5.0 G/DL 04/30/2024 10:03 AM [facility] AST 33 15 - 37 U/L 04/30/2024 10:03 AM [facility] ALT 71(H) 16 - 60 U/L 04/30/2024 10:03 AM [facility] ALKALINE PHOSPHATASE S/P/B 72 50 - 136 U/L 04/30/2024 10:03 AM [facility] ANION GAP 9.7 5 - 15 MMOL/L 04/30/2024 10:03 AM [facility] BUN CREATININE RATIO 11.3 6 - 26 04/30/2024 10:03 AM [facility] A/G RATIO 1.1 1.0 - 2.0 RATIO 04/30/2024 10:03 AM [facility] GFR ESTIMATE 69(L) >90 ML/MIN/1.7 3 M2 04/30/2024 10:03 AM CELL ATTENDANT [facility] Comment: NOTE: eGFR is not calculated for patients <18 years of age. This is an estimated GFR calculation using the new CKD EPI creatinine equation without race and so does not require a correction factor for race. This estimated GFR should not be used for calculating drug doses. 04/30/2024 9:32 AM CELL ATTENDANT Yuridia Marshall MD LABORATORY Final Resu lt Performing Organization Address [facility]/ZIP Co de Phone Number [facility] [address] [place] [address], [place] [phone] * LIPASE (04/30/2024 9:32 AM CELL ATTENDANT) LIPASE 55 16 - 77 UNITS/L 04/30/2024 10:03 AM CELL ATTENDANT [facility] 04/30/2024 9:32 AM CELL ATTENDANT Yuridia Marshall MD LABORATORY Final Resu lt Performing Organization Address [facility]/ZIP Co de Phone Number [facility] [address] [place] [address], [place] [phone] * COLONOSCOPY/EGD (06/17/2018) us Documents Scanned SCANNING [...] Most Recently Relevant to Health Maintenance Insurance [facility] Care Teams Student Accounts Coordinator Relationship Specialty Start Date End Date Aditi Stark, HVAC INSTRUCTOR-BC [address] [facility], [address] [place] [address] PCP - General NURSE PRACTITIONER 05/14/20
--- OUTSIDE RECORDS SUMMARY | 2024-07-07 14:33 | XMS_ITS | Encounter Summary ---
Author Organization [facility] Address [facility] [place] [address] Care Team Providers Care Hooker Up Name Role Phone Aditi Stark NURSE CASE MANAGER-TRAFFIC SIGN SUPERVISOR Primary Care Provider Reason for Visit * Reason Onset Date Comments MEDICATION REFILL 02/29/2024 Encounter Details Date Type Department Care Team (Late st Contact Info) Description 02/29/2024 Refill [facility] - [address], [place] [address] Heladio Luna III, MD [address] [place] [phone] MEDICATION REFILL Social History Tobacco Use Types [...] Description 10/26/2024 1:30 PM CDT Office Visit [facility] - GI [address] [place] [phone] Irene Barron PA-C [address] [facility] DEPT [place] [phone] 04/26/2025 1:30 PM SURVEY COMPILER Office Visit [facility] - [address] [phone] Heladio Luna III, MD [address] [place] [address] [address] [phone] 06/05/2025 8:30 AM SURVEY COMPILER Procedure visit [facility] - [address] [phone] 06/05/2025 9:00 AM SURVEY COMPILER Office Visit [facility] - [address] [phone] Brooke Bernard, NURSE CASE MANAGER-TRAFFIC SIGN SUPERVISOR [address] [place] [address] [address] OF GASTROENTEROLOGY [place], [place] [id number] documented as of this encounter Goals Goal Patient Goal Type Associated Problems Recent Progress Patient-Stated? Author Medication Management General On track( 024 2:03 PM SURVEY COMPILER) Jude Villegas, RN Note: Expected end date: Interventions: Take all medications as prescribed Let your doctor know right away about any changes in your medications Make sure to request a refill of your medication at least one week prior to your last dose documented as of this encounter Visit Diagnoses Not on filedocumented in this encounter Care Teams Hooker Up Relationship Specialty Start Date End Date Aditi Stark, NURSE CASE MANAGER-TRAFFIC SIGN SUPERVISOR [address] [facility], [address] [place] [address] PCP - General Nurse Practitioner 12/08/22 documented as of this encounter
--- OUTSIDE RECORDS SUMMARY | 2024-07-07 14:33 | XMS_ITS | Encounter Summary ---
Author Organization [facility] Address [address] [place] [address] Care Team Providers Care Warehouse Representative Name Role Phone Aditi Stark [facility] Primary Care Provider + Encounter Details Date Type Department Care Team (Late Contact Info) Description 01/10/2022 [employer] Message [address] [phone] Mychart, [facility] Provider Ozempic Social History Tobacco Use Types [...] Sex Assigned at Male 06/30/2024 7:34 AM [employer]PER [employer]URNER Legal Sex Male 7:57 PM CDT Gender [...] Description 10/20/2024 7:20 AM CDT Office Visit [facility] [address] [place] [address] Aditi Stark, [facility] [address], [address] [place] [address] 05/03/2025 8:00 AM [employer] [employer] [facility] Appointment [facility] [address] [place] [address] Aditi Stark, [facility] [address] [facility], [address] [place] [address] documented as of this encounter Visit Diagnoses Not on filedocumented in this encounter Additional Health Concerns Infection Onset Date Last Indicated Resolved Time COVID-19 Rule Out 06/20/2024 06/20/2024 06/20/2024 12:12 PM [employer] [employer] Influenza - Seasonal 06/20/2024 06/20/2024 025 12:32 AM [employer] [employer] Assessment Noted Time PHQ-9 Depression Total Score: 0 08/14/19 22 3:56 PM CDT documented as of this encounter Care Teams Warehouse Representative Relationship Specialty Start Date End Date Aditi Stark, [facility] [address], [address] [place] [address] PCP - General NURSE PRACTITIONER 05/14/20 documented as of this encounter
--- OUTSIDE RECORDS SUMMARY | 2024-07-07 14:33 | XMS_ITS | Encounter Summary ---
Author Organization [facility] Address [address] [place] [address] Care Team Providers Care Manager Photography Name Role Phone Aditi Strak [facility] Primary Care Provider + Encounter Details Date Type Department Care Team (Late Contact Info) Description 11/12/2022 MyChart Message Enc [facility] - [facility] [address] [place] [address] [employer], [facility] Provider Air Quality Message Social History Tobacco [...] Sex Assigned at Male 06/30/2024 7:34 AM CARDIAC CATH TECHNICIAN Legal Sex Male 7:57 PM CDT Gender Identity Male 08/12/2021 1:26 PM CDT Sexual Orientation Straight 08/12/2021 1: 26 PM CDT documented as of this encounter Plan of Treatment Upcoming Encounters Date Type Department Care Team (Late Contact Info) Description 10/20/2024 7:20 AM CDT Office Visit [address] [phone] Aditi Stark, [facility] [address] [place] [address], [address] [place] [address] 05/03/2025 8:00 AM CARDIAC CATH TECHNICIAN [facility]ointment [facility] [address] [place] [address] Aditi Stark, [facility]- [address] [facility], [address] [place] [address] documented as of this encounter Visit Diagnoses Not on filedocumented in this encounter Additional Health Concerns Infection Onset Date Last Indicated Resolved Time COVID-19 Rule Out 06/20/2024 06/20/2024 06/20/2024 12:12 PM CARDIAC CATH TECHNICIAN Influenza - Seasonal 06/20/2024 06/20/2024 025 12:32 AM CARDIAC CATH TECHNICIAN Assessment Noted Time PHQ-9 Depression Total Score: 0 08/14/19 22 3:56 PM CDT documented as of this encounter Care Teams Manager Photography Relationship Specialty Start Date End Date Aditi Stark, [facility]- [address], [address] [place] [address] PCP - General NURSE PRACTITIONER 05/14/20 documented as of this encounter
--- OUTSIDE RECORDS SUMMARY | 2024-07-07 14:33 | XMS_ITS | Encounter Summary ---
Author Organization [facility] Address [address] [place] [address] Care Team Providers Care Dumping Machine Operator Name Role Phone Lawson Mathew MD Primary Care Provider Unavailable Shannon Carr MD Primary Care Provider Un available Aditi Stark [facility] Primary Care Provider + Encounter Details Date Type Department Care Team (Late st Contact Info) Description 10/11/2009 Abstract [facility] Conversion , Generic Conversion, Social History Tobacco Use Types Packs/Day Years Used Date Smoking Tobacco: Never Assessed Sex and Gender Information Value Date Recorded Sex Assigned at Male 06/30/2024 7:34 AM MANDOLIN REPAIR PERSON Legal Sex Male 7:57 PM CDT Gender Identity Male 08/12/2021 1:26 PM CDT Sexual Orientation Straight 08/12/2021 1: 26 PM CDT documented as of this encounter Plan of Treatment Upcoming Encounters Date Type Department Care Team (Late st Contact Info) Description 10/20/2024 7:20 AM CDT Office Visit [facility] [address] [place] [address] Aditi Stark, [facility] [address] [facility], [address] [place] [address] 05/03/2025 8:00 AM MANDOLIN REPAIR PERSON Appointment [facility] [address] [place] [address] Aditi Stark, [facility] [address] [facility], [address] [place] [address] documented as of this encounter Visit Diagnoses Not on filedocumented in this encounter Additional Health Concerns Infection Onset Date Last Indicated Resolved Time COVID-19 Rule Out 06/20/2024 06/20/2024 06/20/2024 12:12 PM MANDOLIN REPAIR PERSON Influenza - Seasonal 06/20/2024 06/20/2024 025 12:32 AM MANDOLIN REPAIR PERSON documented as of this encounter Care Teams Dumping Machine Operator Relationship Specialty Start Date End Date Lawson Mathew MD PCP - General FAMILY PRACTICE 04/27/18 05/04/18 Shannon Carr MD PCP - General INTERNAL MEDICINE 05/05/18 05/13/20 Aditi Stark, [facility] [address] [facility], [address] [place] [address] PCP - General NURSE PRACTITIONER 05/14/20 documented as of this encounter
--- OUTSIDE RECORDS SUMMARY | 2024-07-07 14:33 | XMS_ITS | Clinical Summary ---
Author Organization [facility] Address [address] [place] [address] Care Team Providers Care Preschool Teacher Assistant Name Role Phone Unavailable Primary Care Provider [...]
--- OUTSIDE RECORDS SUMMARY | 2024-07-07 14:33 | XMS_ITS | Encounter Summary ---
Author Organization [facility] Address [facility] [place] [address] Care Team Providers Care Logistics Program Manager Name Role Phone Aditi Stark BANKING SERVICES ADVISOR-NUTRITION EDUCATOR Primary Care Provider Reason for Visit * Reason Onset Date Comments MEDICATION REFILL 02/11/2024 Encounter Details Date Type Department Care Team (Late st Contact Info) Description 02/11/2024 Refill [facility] - [address], [place] [address] Heladio Luna III, MD [address] [place] [phone] MEDICATION REFILL Social History Tobacco Use Types [...] Description 10/26/2024 1:30 PM CDT Office Visit [facility] - [place] [address] [place] [phone] Irene Barron PA-C [address] [facility] DEPT [place] [phone] 04/26/2025 1:30 PM TOOLING INSPECTOR Office Visit [facility] - [address] [phone] Heladio Luna III, MD [address] [place] [address] [address] [place] [phone] 06/05/2025 8:30 AM TOOLING INSPECTOR Procedure visit [facility] - [address] [phone] 06/05/2025 9:00 AM TOOLING INSPECTOR Office Visit [facility] - [address] [phone] Brooke Bernard, BANKING SERVICES ADVISOR-NUTRITION EDUCATOR [address] [place] [address] [address] DIV OF GASTROENTEROLOGY [place], [place] [phone] documented as of this encounter Goals Goal Patient Goal Type Associated Problems Recent Progress Patient-Stated? Author Medication Management General On track( 024 2:03 PM TOOLING INSPECTOR) Jude Villegas, RN Note: Expected end date: Interventions: Take all medications as prescribed Let your doctor know right away about any changes in your medications Make sure to request a refill of your medication at least one week prior to your last dose documented as of this encounter Visit Diagnoses Not on filedocumented in this encounter Care Teams Logistics Program Manager Relationship Specialty Start Date End Date Aditi Stark, BANKING SERVICES ADVISOR-NUTRITION EDUCATOR [address] [facility], [address] [place] [address] PCP - General Nurse Practitioner 12/08/22 documented as of this encounter
--- OUTSIDE RECORDS SUMMARY | 2024-07-07 14:33 | XMS_ITS | Encounter Summary ---
Author Organization [facility] Address [address] [place] [address] Care Team Providers Care Pharmacy Operations Specialist Name Role Phone Lawson Mathew MD Primary Care Provider Unavailable Shannon Carr MD Primary Care Provider Un available Aditi Stark [facility] Primary Care Provider + Encounter Details Date Type Department Care Team (Late st Contact Info) Description 09/26/2009 Abstract [facility] Conversion , Generic Conversion, Social History Tobacco Use Types Packs/Day Years Used Date Smoking Tobacco: Never Assessed Sex and Gender Information Value Date Recorded Sex Assigned at Male 06/30/2024 7:34 AM CHIEF INFORMATION SECURITY OFFICER Legal Sex Male 7:57 PM CDT Gender Identity Male 08/12/2021 1:26 PM CDT Sexual Orientation Straight 08/12/2021 1: 26 PM CDT documented as of this encounter Plan of Treatment Upcoming Encounters Date Type Department Care Team (Late st Contact Info) Description 10/20/2024 7:20 AM CDT Office Visit [facility] [address] [place] [address] Aditi Stark, [facility] [address] [facility], [address] [place] [address] 05/03/2025 8:00 AM CHIEF INFORMATION SECURITY OFFICER Appointment [facility] [address] [place] [address] Aditi Stark, [facility] [address] [facility], [address] [place] [address] documented as of this encounter Visit Diagnoses Not on filedocumented in this encounter Additional Health Concerns Infection Onset Date Last Indicated Resolved Time COVID-19 Rule Out 06/20/2024 06/20/2024 06/20/2024 12:12 PM CHIEF INFORMATION SECURITY OFFICER Influenza - Seasonal 06/20/2024 06/20/2024 025 12:32 AM CHIEF INFORMATION SECURITY OFFICER documented as of this encounter Care Teams Pharmacy Operations Specialist Relationship Specialty Start Date End Date Lawson Mathew MD PCP - General FAMILY PRACTICE 04/27/18 05/04/18 Shannon Carr MD PCP - General INTERNAL MEDICINE 05/05/18 05/13/20 Aditi Stark, [facility] [address] [facility], [address] [place] [address] PCP - General NURSE PRACTITIONER 05/14/20 documented as of this encounter
--- OUTSIDE RECORDS SUMMARY | 2024-07-07 14:33 | XMS_ITS | Encounter Summary ---
Author Organization [facility] Address [address] [facility] [place] [address] Care Team Providers Care Agricultural Extension Specialist Name Role Phone Aditi Stark PHYSICIAN ASSISTANT CERTIFIED-VP TRAINING Primary Care Provider Reason for Referral * Medication Prior Authorization - Closed Specialty Diagnoses / Procedures Referred By Alcon [email or web address] Referred To Contact Diagnoses Class 2 severe obesity due to excess calories with serious comorbidity and body mass index (BMI) of 39.0 to 39.9 in adult (HCC) Metabolic dysfunction-associated steatohepatitis (MASH) Heladio Luna III, MD [address] [place] [phone] Referral ID Status Reason Start Date Expiration Date Visits Re quested Visits Authorized [id number] Closed 1 1 RAFT SALES REPRESENTATIVE Reason for Visit * Reason Onset Date Comments MEDICATION REFILL 07/07/2024 Encounter Details Date Type Department Care Team ([facility] st Contact Info) Description 07/07/2024 Refill [facility] - Internal Med [address] [place] [address], [place] [phone] Heladio Luna III, MD [address] [place] [address] [address] [place] [phone] MEDICATION REFILL Social History Tobacco Use [...] on file documented as of this encounter Miscellaneous Notes * Telephone Encounter - Destinee Turner RN - 07/07/2024 9:06 AM CST Refill Request Conner Powell Scott CARMELA: 04/20/24 NOV scheduled: 04/26/2025 LRF: 04/20/24 Qty Disp: 6 ml # of refills: 2 Allergies: Allergies Allergen Reactions Aspirin Patient stated that he got nose bleeds from the asa. Penicillin G Proc & Benzathine Patient passed out from the shot Pended Medication Order: Requested Prescriptions Pending Prescriptions Disp Refills tirzepatide (Zepbound) 15 MG/0.5ML injection 6 mL 2 Sig: Inject 15 (fifteen) mg subcutaneously every 7 days RAFT SALES REPRESENTATIVE documented in this encounter Plan of Treatment Upcoming Encounters Date Type Department Care Team (Late st Contact Info) Description 10/26/2024 1:30 PM CDT Office Visit [facility] - [address] [phone] Irene Barron PA-C [address] [facility] DEPT [place] [phone] 04/26/2025 1:30 PM AIRCRAFT SALES REPRESENTATIVE Office Visit [facility] - [address] [phone] Heladio Luna III, MD [address] [place] [address] [address] [place] [address] 06/05/2025 8:30 AM AIRCRAFT SALES REPRESENTATIVE Procedure visit [facility] - [facility] [address] [place] [address], [place] [address] 06/05/2025 9:00 AM AIRCRAFT SALES REPRESENTATIVE Office Visit [facility] - [place] [address] [place] [address], [place] [phone] Brooke Bernard, PHYSICIAN ASSISTANT CERTIFIED-VP TRAINING [address] [facility] [address] [place] [address] documented as of this encounter Goals Goal Patient Goal Type Associated Problems Recent Progress Patient-Stated? Author Medication Management General On track( 024 2:03 PM AIRCRAFT SALES REPRESENTATIVE) Jude Villegas, RN Note: Expected end date: Interventions: Take all medications as prescribed Let your doctor know right away about any changes in your medications Make sure to request a refill of your medication at least one week prior to your last dose documented as of this encounter Visit Diagnoses Diagnosis Class 2 severe obesity due to excess calories with serious comorbidity and body mass index (BMI) of 39.0 to 39.9 in adult (HCC) Metabolic dysfunction-associated steatohepatitis (MASH) documented in this encounter Care Teams Agricultural Extension Specialist Relationship Specialty Start Date End Date Aditi Stark, PHYSICIAN ASSISTANT CERTIFIED-VP TRAINING [address] [facility], [address] [place] [address] PCP - General Nurse Practitioner 12/08/22 documented as of this encounter
--- OUTSIDE RECORDS SUMMARY | 2024-07-07 14:33 | XMS_ITS | Patient Health Summary ---
Author Organization [facility] Address [address] [place] [address] Care Team Providers [employer] Driver Name Role Phone Aditi Stark DESKIDDING MACHINE OPERATOR-FUR GLOSSER Primary Care Provider Note from [facility],non-owned Affiliates and Associated Physician Practices is amultiple site organization consisting of ambulatory clinics and hospital sitesin [place], [place], [place] and [place]. This disclosure is being madepursuant to the Care Everywhere program and may not contain all information available regarding this patient. Last updated 18.[facility] Allergies * Aspirin(Patient stated that he got [...] (one) tablet by mouth once daily * psyllium (Metamucil) CAPS capsule(Started 04/20/2024) Take [...] 1 (one) capsule by mouth once daily * tirzepatide (Zepbound) 15 MG/0.5ML injection(Started 07/07/2024) Inject 15 (fifteen) mg subcutaneously every 7 days 2 refills by 07/07/2025 Ended Medications* tirzepatide (Zepbound) 15 MG/0.5ML injection(Started 04/20/2024)(Discontinued) Inject 15 (fifteen) mg subcutaneously every 7 days 2 refills by 04/20/2025 Active Problems Problem Noted Date Diagnosed Date [...] Comments Blood Pressure 132/94 06/06/2024 8:45 AM SUPERINTENDENT STEVEDORING Pulse 73 06/06/2024 8:45 AM SUPERINTENDENT STEVEDORING Temperature 36.6 C (97.8 F) 06/06/2024 8:45 AM SUPERINTENDENT STEVEDORING Respiratory Rate 18 06/11/2023 9:48 AM SUPERINTENDENT STEVEDORING Oxygen Saturation 98% 06/06/2024 8:45 AM SUPERINTENDENT STEVEDORING Inhaled Oxygen Concentration - - Weight 124.2 kg (273 lb 12.8 oz) 06/06/2024 8:45 AM SUPERINTENDENT STEVEDORING Height 185.4 cm (6' 1 ) 06/06/2024 8:45 AM SUPERINTENDENT STEVEDORING Body Mass Index 36.12 06/06/2024 8:45 AM SUPERINTENDENT STEVEDORING Procedures * US ABDOMEN LIMITED(Performed 06/06/2024) Performed [...] METABOLIC PANEL(Performed 06/18/2023) Performed for Hypokalemia * WV LIVER ELASTOGRAPHY(Performed 06/11/2023) Performed for GRAFF (nonalcoholic [...] PANEL(Performed 12/28/2021) * LIPID PROFILE(Performed 12/28/2021) * WV LIVER ELASTOGRAPHY(Performed 08/12/2021) Performed for GRAFF (nonalcoholic [...] GRAFF (nonalcoholic steatohepatitis), Hereditary hemochromatosis (HCC) * WV LIVER ELASTOGRAPHY(Performed 02/07/2020) Performed for GRAFF (nonalcoholic [...] * CBC W AUTO DIFFERENTIAL(Performed 07/22/2016) * [id number]-6-[id number] BLOOD PHENOTYPING PANEL(Performed 07/22/2016) * MITOCHONDRIAL ANTIBODY [...] * US ABDOMEN LIMITED (06/06/2024 8:10 AM SUPERINTENDENT STEVEDORING) Only the most recent of3 resultswithin the time period is included. Anatomical Region Laterality Modality Abdomen Ultrasound 06/06/2024 8:20 AM SUPERINTENDENT STEVEDORING Impressions 06/06/2024 9:31 AM SUPERINTENDENT STEVEDORING IMPRESSION: 1.Diffuse hepatic steatosis. No notable surface [...] > Dictated by Bunny Olmos MD (residential youth counselor). I, Peg Goldman MD have personally reviewed and interpreted this examination/study. > Interpreting Provider: Peg Goldman MD on 06/06/2024 9:31 AM Narrative 06/06/2024 9:31 AM SUPERINTENDENT STEVEDORING PROCEDURE: US ABDOMEN LIMITED DATE/TIME OF EXAM: [...] > Dictated by Bunny Olmos MD (residential youth counselor). I, Peg Goldman MD have personally reviewed and interpreted this examination/study. > Interpreting Provider: Peg Goldman MD on 59:31 AM Brooke Vernell Bernard DESKIDDING MACHINE OPERATOR-FUR GLOSSER US ORDERABL ES * HEMOGLOBIN A1C (11/13/2023 7:25 AM CDT) Only the most recent of2 resultswithin the time period is included. Hemoglobin A1c 5.4 <5.7 % of total Hgb [facility] Comment: For the purpose of screening for the presence of diabetes: <5.7% Consistent with the absence of diabetes 5.7-6.4% Consistent with increased risk for diabetes (prediabetes) > or =6.5% Consistent with diabetes This assay result is consistent with a decreased risk of diabetes. Currently, no consensus exists regarding use of hemoglobin A1c for diagnosis of diabetes in children. According to [place] Diabetes Association (ADA) guidelines, hemoglobin A1c <7.0% represents optimal control in non- diabetic patients. Different metrics may apply to specific patient populations. Standards of Medical Care in Diabetes(ADA). This test was performed on the Mitzi guillermina c503 platform. Effective 08/03/23, a change in test platforms from the Hernandez Software Program Manager to the Mitzi guillermina c503 may have shifted HbA1c results compared to historical results. Based on laboratory validation testing conducted at [facility], the Mitzi platform relative to the Hernandez [...] recommended. REPORT COMMENT: FASTING:YES Test Performed at: [facility] [address] CHELE CANO MD Blood BLOOD SPECIMEN / Unknown 11/13/2023 7:25 AM CDT 11/13/2023 7:25 AM CDT Heldaio Luna III, MD LAB - CHEMISTRY O RDERABLES [address] [address] * (ABNORMAL) COMPREHENSIVE METABOLIC PANEL (11/13/2023 7:25 AM CDT) Only the most recent of14 resultswithin the time period is included. Glucose 94 65 - 99 mg/dL [facility] Comment: Fasting reference interval BUN 12 7 - 25 mg/dL [facility] Creatinine 0.82 0.70 - 1.30 mg/dL [facility] eGFR by Cystatin C 104 > OR = 60 mL/min/1. 73m2 [facility] BUN/Creatinine Ratio SEE NOTE: - (calc) [facility] Comment: Not Reported: BUN and Creatinine are within reference range. Sodium 142 135 - 146 mmol/L [facility] [...] 46 U/L [facility] Comment: Test Performed at: [facility] [employer] [address] [facility] [place] [address] CHELE CANO MD Blood BLOOD SPECIMEN / Unknown 11/13/2023 7:25 AM CDT 11/13/2023 7:25 AM CDT Heladio Luna III, MD LAB - CHEMISTRY O DONNA Performing Organization Address [facility] Co de Phone Number [facility] [address] [place] [address] * (ABNORMAL) LIPID PROFILE (11/13/2023 7:25 AM CDT) Only the most recent of2 resultswithin the time period is included. Cholesterol 148 <200 mg/dL [facility] HDL Cholesterol 39(L) > OR = 40 mg/dL [facility] Triglycerides 153(H) <150 mg/dL [facility] LDL Calculated 84 mg/dL (calc) [facility] Comment: Reference range: <100 Desirable range <100 mg/dL for primary prevention; <70 mg/dL for patients with CHD or diabetic patients with > or = 2 CHD risk factors. LDL-C is now calculated using the Humberto calculation, which is a validated novel method providing better accuracy than the Friedewald equation in the estimation of LDL-C. Sherman REA et al. VIRGIL. 2013;310(19): 4466-1315 (http://education.CartRescuer/faq/IIN449) CHOL/HDLC RATIO 3.8 <5.0 (calc) [facility] Non HDL Cholesterol 109 <130 mg/dL (calc) [facility] Comment: For patients with diabetes plus 1 major ASCVD risk factor, treating to a non-HDL-C goal of <100 mg/dL (LDL-C of <70 mg/dL) is considered a therapeutic option. Test Performed at: [facility] [id number] [place] [address] CHELE CANO MD Blood BLOOD SPECIMEN / Unknown 11/13/2023 7:25 AM CDT 11/13/2023 7:25 AM CDT Heladio Luna III, MD LAB - CHEMISTRY O DONNA Performing Organization Address [facility] Co de Phone Number [place] [address] [place] [address] * [place] LIVER ELASTOGRAPHY (06/11/2023 9:35 AM SUPERINTENDENT STEVEDORING) Narrative Juan J Ridley MD - 06/11/2023 9:35 AM SUPERINTENDENT STEVEDORING Juan J Ridley MD 06/11/2023 1:30 PM Diagnosis: GRAFF RN verified patient is NPO for prior 3 hours. Procedure explained. Date of Exam: 06/11/2023 Liver Stiffness: (LSM, kPa) median: 6.4 IQR/Median% (ideally < 30%): 6% CAP (controlled attenuation parameter): 326 Technical Difficulty: None Ordering Provider: EVGENY Denis Phone Fax Fibroscan interpretation: I have personally [...] patients with nonalcoholic fatty liver disease. Gastroenterology 2019;156:3212-5600. Abena MS, Jose R, Zak LEE, et al. Vibration-controlled transient elastography to assess fibrosis and steatosis in patients with nonalcoholic fatty liver disease. Clin Gastroenterol Hepatol 2019;17:156-163. Note that scores have been developed that incorporate the Fibroscan liver stiffness measurement from large cohorts of patients with liver biopsies to further refine the ability of Fibroscan to identify patients with MASH and advanced fibrosis. These include the FAST (Fibroscan-AST) score (Henrique, 2022) and the Agile3+ and Agile4 scores (Brandon, 202). Henrique DENT, Zak LEE, Lorena Perkins, Ishan A, et al. Validation of the accuracy of the FAST score for detecting patients with at-risk nonalcoholic steatohepatitis (GRAFF) in a [place] cohort and comparison to other non-invasive algorithms. PLoS ONE (2021) 17: [id number]. Brandon AJ, Oleg J, Fili ZM, et al. Enhanced diagnosis of advanced fibrosis and cirrhosis in individuals with NAFLD using FibroScan-based Agile scores. J Hepatol (2022) 78: 247-259. Fibroscan LSM can also be used with laboratory parameters without formulas to assess prognosis. According to the Baveno-VII criteria (Sharma, 202), Fibroscan LSM ?15 kPa plus a platelet count of ?069z106/L rules out clinically significant portal hypertension (sensitivity and negative predictive value >90%) in patients with compensated advanced chronic liver disease. Sharma R, Renetta J, Oliver-Taco G, Julio Cesar T, Khanh Jaquez on behalf of the Baveno VII Faculty. Baveno VII--Renewing consensus in portal hypertension. J Hepatol (2021) 76: 959-974 Assessing the likelihood of advanced fibrosis in patients with intermediate liver stiffness measurement (LSM) by Fibroscan (e.g., 8-15 kPa) can be improved by also calculating the FIB-4 score (Nina et al. Hepatology Communications 2019;3:2713-9085) or NAFLD Fibrosis score (Luis et al. Clinical Gastroenterology and Hepatology 2019;17:3943-3811 using routine clinical data. Note: 1. Fibroscan cannot reliably identify earlier stages of fibrosis (ie distinguish F0 from F1 and F2) and thus a histologic stage cannot be predicted from the Fibroscan reading. 2. Liver stiffness can be increased by factors other than fibrosis including passive congestion, infiltrative processes, active alcoholism, recent moderate alcohol consumption in the 2 weeks before the exam, biliary obstruction and marked inflammation. The interpretation [...] additional interpretive data was last updated 09/20/22.) [email or web address] Brooke Bernard DESKIDDING MACHINE OPERATOR-FUR GLOSSER PROCEDURE/M INOR SURGICAL ORDERABLES * CBC WITH DIFFERENTIAL (05/23/2023 7:45 AM SUPERINTENDENT STEVEDORING) Only the most recent of9 resultswithin the [...] 0.8 % [facility] Comment: Test Performed at: [facility] [address] [place] [address] CHELE CANO MD [facility] Comments [facility] Comment: Test Performed at: [employer] [address] [place] [address] CHELE CANO MD 05/23/2023 7:45 AM SUPERINTENDENT STEVEDORING 05/23/2023 7:45 AM SUPERINTENDENT STEVEDORING Brooke Bernard APRNDAVY LAB - HEMAT OLOGY ORDERABLES Performing Organization Address [facility] Co de Phone Number [facility] [id number] [place] [address] * FERRITIN (05/23/2023 7:45 AM SUPERINTENDENT STEVEDORING) Only the most recent of11 resultswithin the time period is included. [facility] Ferritin 96 38 - 380 ng/mL [facility] Comment: REPORT COMMENT: FASTING:YES Test Performed at: [facility] [place] [address] [facility] [place] [place] [address] CHELE CANO MD 05/23/2023 7:45 AM SUPERINTENDENT STEVEDORING 05/23/2023 7:45 AM SUPERINTENDENT STEVEDORING Brooke PEPPER LAB - CHEMI STRY ORDERABLES Performing Organization Address [facility] [place] [address] * ALPHA FETOPROTEIN BLOOD TUMOR MARKER (11/29/2022 7:40 AM CDT) Only the most recent of3 resultswithin the time period is included. [facility] Alpha-Fetoprotei n Tumor Marker 2.3 <6.1 ng/mL [facility] Comment: This test was performed using the Shira Leroy chemiluminescent method. Values obtained from different assay methods cannot be used interchangeably. AFP levels, regardless of value, should not be interpreted as absolute evidence of the presence or absence of disease. Test Performed at: [facility] [place] [address] [place] [address] MARISA Brady [place] Blood BLOOD SPECIMEN / Unknown 11/29/2022 7:40 AM CDT 11/29/2022 7:41 AM CDT Brooke Bernard DESKIDDING MACHINE OPERATOR-FUR GLOSSER LAB - CHEMI STRY ORDERABLES Performing Organization Address [facility] de Phone Number [address] [address] * PT-INR (11/29/2022 7:37 AM CDT) Only the most recent of3 resultswithin the time period is included. [facility] INR 1.0 [facility] Comment: Reference Range 0.9-1.1 Moderate-intensity Warfarin Therapy 2.0-3.0 Higher-intensity Warfarin Therapy 3.0-4.0 PT 10.8 9.0 - 11.5 sec [facility] Comment: For additional information, please refer to http://education.Thomas Golf/faq/YYE908 (This link is being provided for informational/ educational purposes only.) Test Performed at: [facility] [address] CHELE CANO MD Blood BLOOD SPECIMEN / Unknown 11/29/2022 7:37 AM CDT 11/29/2022 7:39 AM CDT Brooke Bernard DESKIDDING MACHINE OPERATOR-FUR GLOSSER LAB - COAGU LATION ORDERABLES Performing Organization Address [facility] de Phone Number [address] [address] * CBC W/O DIFFERENTIAL (12/28/2021 10:03 AM CDT) Only the most recent of5 resultswithin the time period is included. [facility] White Blood Cell Count 4.6 3.8 [...] 12.5 fL [facility] Comment: Test Performed at: [facility] [employer] [address] [facility] [place] [address] LOU JULES DO,MPH 12/28/2021 10:0 3 AM CDT 12/28/2021 10:04 AM CDT Tadeo Babin MD LAB - HEMATOLOGY ORD ERABLES Performing Organization Address [facility] Co de Phone Number [facility] [address] [place] [address] * IGG BLOOD (12/28/2021 10:03 AM CDT) Pathologist [facility] IgG 974 600 - 1640 mg/dL [facility] Comment: Test Performed at: [facility] [address] [place] [address] LOU JULES DO,MPH 12/28/2021 10:0 3 AM CDT 12/28/2021 10:04 AM CDT Tadeo Babin MD LAB - CHEMISTRY ORDE RABLES Performing Organization Address [facility] de Phone Number [facility] [address] [place] [address] * W[place] LIVER ELASTOGRAPHY (08/12/2021 8:53 AM CDT) Narrative Juan J Bacon MD - 08/12/2021 8:53 AM CDT Juan J Bacon MD 08/13/2021 5:51 PM Diagnosis: KIERSTEN RN verified patient has no implanted devices and NPO for prior 3 hours. Procedure explained and consent signed. Date of Exam: 08/12/2021 Liver Stiffness: (LSM, kPa) median: 6.9 IQR (interquartile range): 0.8 IQR/Median% (ideally < 30%): 12 CAP (controlled attenuation parameter): 375 Technical Difficulty: None Ordering Provider: Tadeo Babin [...] patients with nonalcoholic fatty liver disease. Gastroenterology 2019;156:7461-3774. Abena MS, Jose R, Van Valeria ML, [...] improved by also calculating the FIB4 score (Williyduke et al. Hepatology Communications 2019;3:1732-4945) or NAFLD Fibrosis score (Luis et al. Clinical Gastroenterology and Hepatology 2019;17:7878-6515. from routine clinical data. 3. Liver stiffness [...] change as additional supporting data becomes available. [email or web address] Tadeo Babin MD PROCEDURE/MINOR SURG ICAL ORDERABLES * BASIC METABOLIC PANEL (CALCIUM TOTAL) (03/23/2020 12:03 PM SUPERINTENDENT STEVEDORING) Glucose 93 65 - 99 mg/dL [facility] Comment: Fasting reference interval BUN 14 7 - 25 mg/dL [facility] Creatinine 0.81 0.70 - 1.33 mg/dL [facility] Comment: For patients >49 years of age, the reference limit for Creatinine is approximately 13% higher for people identified as -[place]. eGFR by MDRD 103 > OR = [...] 10.3 mg/dL [facility] Comment: Test Performed at: [facility] [address] [place] [address] LOU JULES DO,MPH 03/23/2020 12:0 3 PM SUPERINTENDENT STEVEDORING 03/23/2020 12:03 PM SUPERINTENDENT STEVEDORING Tadeo Babin MD LAB - CHEMISTRY [place]HMAEL [place] [facility] Organization Address City/State/ZIP Co de Phone Number [facility] [address] [place] [address] * (ABNORMAL) HEPATIC FUNCTION PANEL (03/23/2020 12:03 PM SUPERINTENDENT STEVEDORING) Protein Total 6.3 6.1 - 8.1 g/dL [...] 46 U/L [facility] Comment: Test Performed at: [facility] [id number] [address] LOU JULES DO,MPH 03/23/2020 12:0 3 PM SUPERINTENDENT STEVEDORING 03/23/2020 12:03 PM SUPERINTENDENT STEVEDORING Tadeo Babin MD LAB - CHEMISTRY ISHMAEL [place] Performing Organization Address [facility] de Phone Number [facility] [address] [place] [address] * (ABNORMAL) IRON + TIBC PANEL (03/23/2020 12:03 PM SUPERINTENDENT STEVEDORING) Iron 179 50 - 180 mcg/dL [facility] TIBC 292 250 - 425 mcg/dL (calc) [facility] % Saturation 61(H) 20 - 48 % (calc) [facility] Comment: Test Performed at: [employer], [employer] [address] LOU JULES DO,MPH 03/23/2020 12:0 3 PM SUPERINTENDENT STEVEDORING 03/23/2020 12:03 PM SUPERINTENDENT STEVEDORING Tadeo Babin MD LAB - CHEMISTRY [place]HMAEL [place] Performing Organization Address [facility] Co de Phone Number [facility] [address] [place] [address] * GGT (03/23/2020 12:03 PM SUPERINTENDENT STEVEDORING) GGT 35 3 - 95 U/L [facility] Comment: Test Performed at: [facility] [employer] [address] [place] [address] LOU JULES DO,MPH 03/23/2020 12:0 3 PM SUPERINTENDENT STEVEDORING 03/23/2020 12:03 PM SUPERINTENDENT STEVEDORING Tadeo Babin MD LAB - CHEMISTRY HIMANSHUAlex [place] [facility] Organization Address City/State/ZIP Co de Phone Number [facility] [address] [place] [address] * PROC FIBROSCAN (02/07/2020 2:14 PM CDT) Narrative Juan J Bacon MD - 02/07/2020 2:14 PM CDT Juan J Bacon MD 02/07/2020 2:36 PM Diagnosis: GRAFF RN verified patient has no implanted devices and NPO for prior 3 hours. Vital signs taken, procedure explained and consent signed. Date of Exam: 02/07/2020 Liver Stiffness: (LSM, kPa) median: 5.4 IQR (interquartile range): 0.8 IQR/Median% (ideally < 30%): 15 CAP (controlled attenuation parameter): 372 Technical Difficulty: None Ordering Provider: Talya Phone [...] patients with nonalcoholic fatty liver disease. Gastroenterology 2019;156:0931-7630. Abena MS, Jose R, Van Valeria ML, [...] improved by also calculating the FIB4 score (Karanuke et al. Hepatology Communications 2019;3:4955-4602) or NAFLD Fibrosis score (Luis et al. Clinical Gastroenterology and Hepatology 2019;17:1789-6872. from routine clinical data. 3. Liver stiffness [...] change as additional supporting data becomes available. [email or web address] [email or web address] Tadeo Babin MD PROCEDURE/MINOR SURG ICAL ORDERABLES * (ABNORMAL) HEMOCHROMATOSIS MUTATION PANEL (07/22/2016 2:45 PM SUPERINTENDENT STEVEDORING) Hemochromatosis Genotype Accession No: [id number] Specimen: Peripheral Blood Reference: [id number] Test: Hemochromatosis Genotyping RESULT Hemochromatosis Genotyping C282Y Wild-Type Allele: Detected Mutant Allele: Detected Patient Result: C282Y/wt H63D Wild-Type Allele: Detected Mutant Allele: Detected Patient Result: H63D/wt Reference Range: wt/wt Composite Genotype: Compound Heterozygote Both mutant and wild-type sequences were detected at both the C282Y and H63D positions of HFE. 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 INTERPRETATION DNA was isolated from the specimen and analyzed by a PCR-amplification refractory mutation system (Jesús Ch et al: J Clin Pathol 51:73-74) to detect the G to A and C to G changes at nucleotide position 845 (845G>A) and 187 (187C>G) of the HFE gene, respectively. These alterations result in a Cysteine to Tyrosine change at position 282 (C282Y) and a Histidine to Aspartic Acid at amino acid 63 (H63D). Both mutant and wild-type sequences are detected at the H63D and C282Y positions. This test was developed and its performance characteristics determined by the [facility] at [facility]. It has not been cleared or approved [...] complexity clinical laboratory testing. Test performed at [facility], [address] [place] [address] This case has been personally reviewed and interpreted by the attending (teaching) pathologist. Final Diagnosis performed by Sylvia Plunkett MD. Electronically signed 07/25/2016(A) [facility] Blood specimen (specimen) BLOOD SPECIMEN / Unknown 07/22/2016 2:45 PM SUPERINTENDENT STEVEDORING 07/22/2016 2:53 PM SUPERINTENDENT STEVEDORING Arik Lipscomb MD LAB - CHEMISTRY ISHMAEL [place] [facility] * PT-INR [facility] (07/22/2016 2:45 PM SUPERINTENDENT STEVEDORING) PT 13.6 12.1 - 14.8 Seconds [facility] INR 1.1 See Comment [facility] Comment: Suggested therapeutic range for low-intensity coumadin therapy for venous thromboembolism prophylaxis is an INR of 2.0-3.0. For high risk patients (Mitral Valve Prosthesis, Atrial Fibrillation, history of TIA/stroke), suggested prophylactic therapeutic range is an INR of 2.5-3.5. Blood specimen (specimen) BLOOD SPECIMEN / Unknown 07/22/2016 2:45 PM SUPERINTENDENT STEVEDORING 07/22/2016 2:54 PM SUPERINTENDENT STEVEDORING Narrative [facility] - 07/22/2016 3:10 PM SUPERINTENDENT STEVEDORING Is patient on Heparin, Argatroban or Dabigatran?->N Arik Lipscomb MD LAB - COAGULATION OR DERABLES Performing Organization Address [facility] Co de Phone Number [address] [phone] * DAIJA BLOOD SCREEN (07/22/2016 2:45 PM SUPERINTENDENT STEVEDORING) DAIJA None Detected None Detected [facility] Venous blood specimen (specimen) 07/22/2016 2:45 PM SUPERINTENDENT STEVEDORING 07/22/2016 2:52 PM SUPERINTENDENT STEVEDORING Arik Lpiscomb MD LAB - CHEMISTRY ISHMAEL [place] Performing Organization Address [facility] [place] Phone Number [address] [phone] * MITOCHONDRIAL ANTIBODY SCREEN (07/22/2016 2:45 PM SUPERINTENDENT STEVEDORING) Mitochondrial M2 Antibody 10.4 0.0 - 20.0 Units [facility] Comment: Mitochondrial M2 Antibody Numeric Result Interpretation: <20.1 Units: Negative 20.1 - 24.9 Units: Equivocal >24.9 Units: Positive Blood specimen (specimen) BLOOD SPECIMEN / Unknown 07/22/2016 2:45 PM SUPERINTENDENT STEVEDORING 07/22/2016 2:53 PM SUPERINTENDENT STEVEDORING Arik Lipscomb MD LAB - CHEMISTRY ISHMAEL [place] Performing Organization Address [facility] Co de Phone Number [address] [phone] * [id number] BLOOD PHENOTYPING PANEL (07/22/2016 2:45 PM SUPERINTENDENT STEVEDORING) Cqfyw-1-Sjhwnffukz n 137 90 - 200 mg/dL [facility] ([facility]) Phenotype (PI) MM [facility] ([facility]) Comment: Phenotype Population A-1-AT Concentration Incidence % Reference Interval MM 86.5% 96 - 189 MS 8.0% 83 - 161 MZ 3.9% 60 - 111 FM 0.4% 93 - 191 SZ 0.3% 42 - 75 SS 0.1% 62 - 119 ZZ 0.05% 16 - 38 FS 0.05% 70 - 128 FZ Unknown 44 - 88 FF Unknown Unknown Blood specimen (specimen) BLOOD SPECIMEN / Unknown 07/22/2016 2:45 PM SUPERINTENDENT STEVEDORING 07/22/2016 2:53 PM SUPERINTENDENT STEVEDORING Narrative [facility] ([facility]) - 07/25/2016 3:16 PM SUPERINTENDENT STEVEDORING Performed at: - [address] [id number] Housekeeping Room Inspector: Braxton Obregon PhD, Phone: [phone] Performed at: [address] [id number] Housekeeping Room Inspector: Lou Cedeno MD, Phone: [phone] Arik Lipscomb MD LAB - CHEMISTRY ISHMAEL CHAMPAGNE [facility]) * CERULOPLASMIN (07/22/2016 2:45 PM SUPERINTENDENT STEVEDORING) Ceruloplasmin 23 20 - 60 mg/dL [facility] Blood specimen (specimen) BLOOD SPECIMEN / Unknown 07/22/2016 2:45 PM SUPERINTENDENT STEVEDORING 07/22/2016 2:54 PM SUPERINTENDENT STEVEDORING Arik Lipscomb MD LAB - CHEMISTRY ISHMAEL CHAMPAGNE [address] [phone] * SMOOTH MUSCLE ANTIBODY (07/22/2016 2:45 PM SUPERINTENDENT STEVEDORING) F-Actin Antibody IgG 19.4 0.0 - 19.9 Units [facility] Comment: F-Actin Antibody Numeric Result Interpretation: <20.0 Units: Negative 20.0 - 30.0 Units: Weak Positive >30.0 Units: Moderate to Strong Positive Blood specimen (specimen) BLOOD SPECIMEN / Unknown 07/22/2016 2:45 PM SUPERINTENDENT STEVEDORING 07/22/2016 2:53 PM SUPERINTENDENT STEVEDORING Arik Lipscomb MD LAB - SEROLOGY ORDER MAHAD Performing Organization Address [facility] Co de Phone Number [address] [phone] * HEPATITIS B SURFACE ANTIBODY (07/22/2016 2:45 PM SUPERINTENDENT STEVEDORING) Pathologist [facility] Hepatitis B Virus Surface Antibody Non-react darling Non-react darling [facility] Comment: < 8 mIU/mL Hepatitis B surface Antibody (HBsAb). Nonreactive for HBsAb - individual is considered not immune to Hepatitis B Virus infection. Hepatitis B Surface Antibody Quantitative 6.9 <8.0 mIU/mL [facility] Comment: Hepatitis B Surface Antibody Numeric Result Interpretation: Nonreactive: <8.0 mIU/mL Indeterminate: 8.0 - 12.0 mIU/mL Reactive: >12.0 mIU/mL Blood specimen (specimen) BLOOD SPECIMEN / Unknown 07/22/2016 2:45 PM SUPERINTENDENT STEVEDORING 07/22/2016 2:54 PM SUPERINTENDENT STEVEDORING Arik Lipscomb MD LAB - CHEMISTRY ORDE RABLES Performing Organization Address City/[facility]/ZIP Co de Phone Number [address] [phone] * HEPATITIS B CORE ANTIBODY (07/22/2016 2:45 PM SUPERINTENDENT STEVEDORING) HBc Antibody Total Non-reacti ve Non-reacti ve [facility] Blood specimen (specimen) BLOOD SPECIMEN / Unknown 07/22/2016 2:45 PM SUPERINTENDENT STEVEDORING 07/22/2016 2:54 PM SUPERINTENDENT STEVEDORING Arik Lipscomb MD LAB - CHEMISTRY ISHMAEL CHAMPAGNE Performing Organization Address City/[facility]/ZIP Co de Phone Number [address] [phone] * HEPATITIS B SURFACE ANTIGEN W RFLX CONFIRMATION (07/22/2016 2:45 PM SUPERINTENDENT STEVEDORING) [facility] Hepatitis B Virus Surface Antigen Non-reacti ve Non-reacti ve [facility] Blood specimen (specimen) BLOOD SPECIMEN / Unknown 07/22/2016 2:45 PM SUPERINTENDENT STEVEDORING 07/22/2016 2:54 PM SUPERINTENDENT STEVEDORING Arik Lipscomb MD LAB - CHEMISTRY ISHMAEL CHAMPAGNE Performing Organization Address [facility] [place] [address], [facility] [phone] * HEPATITIS C ANTIBODY (07/22/2016 2:45 PM SUPERINTENDENT STEVEDORING) [facility] Hepatitis C Antibody Non-react darling Non-reac tive [facility] Comment: Hepatitis C Antibody screen indicates no serologic evidence of past or current infection with Hepatitis C Virus. Patients with unexplained liver disease who are immunocompromised or suspected of having acute Hepatitis C infection may benefit from Nucleic Acid Test (FABY) for Hepatitis C Viral RNA to confirm Hepatitis C status. Blood specimen (specimen) BLOOD SPECIMEN / Unknown 07/22/2016 2:45 PM SUPERINTENDENT STEVEDORING 07/22/2016 2:54 PM SUPERINTENDENT STEVEDORING Arik Lipscomb MD LAB - CHEMISTRY [place] [address], [facility] [phone] * HEPATITIS A ANTIBODY (07/22/2016 2:45 PM SUPERINTENDENT STEVEDORING) [facility] Hepatitis A Virus Antibody Total Negative Negative [facility] ([facility]) Blood specimen (specimen) 07/22/2016 2:45 PM SUPERINTENDENT STEVEDORING 07/22/2016 2:53 PM SUPERINTENDENT STEVEDORING Narrative [facility] ([facility]) - 07/23/2016 7:14 AM SUPERINTENDENT STEVEDORING Performed at: - [facility] [address], [place], [place] [id number] Housekeeping Room Inspector: Braxton Obregon PhD, Phone: [phone] Arik Lipscomb MD LAB - CHEMISTRY ISHMAEL CHAMPAGNE [facility] ([place]) Care Teams Flatbed Company Driver Relationship Specialty Start Date End Date Aditi Stark, DESKIDDING MACHINE OPERATOR-FUR GLOSSER [address] [facility], [address] [place] [address] PCP - General Nurse Practitioner 12/08/22
--- OUTSIDE RECORDS SUMMARY | 2024-07-07 14:33 | XMS_ITS | Referral Summary ---
Author Organization [facility] Address [address] [place] [address] Care Team Providers Care Director Of Archives Name Role Phone Aditi Stark Maddie PEPPER Primary Care Provider Source Comments [facility],non-owned Affiliates and Associated Physician Practices is amultiple site organization consisting of ambulatory clinics and hospital sitesin [place], [place], [place] and [place]. This disclosure is being madepursuant to the Care Everywhere program and may not contain all information available regarding this patient. Last updated 18.[facility] Encounters Date Type Department Care Team Description 07/07/2024 Refill [facility] - Internal Med [facility] [facility], [place] [address] Heladio Luna III, MD MEDICATION REFILL 06/06/2024 Travel 06/06/2024 9:00 AM SOLDER CREAM MAKER Office Visit [facility] - GI [address] [facility], [place] [address] Brooke Bernard APRN-STILE RIPSAW OPERATOR Metabolic dysfunction-associated steatohepatitis (MASH) (Primary Dx); Hereditary hemochromatosis (HCC) 06/06/2024 7:18 AM SOLDER CREAM MAKER - 06/06/2024 11:59 PM SOLDER CREAM MAKER Hospital Encounter [facility] [address] [place] [phone] Brooke Bernard, DIRECTOR WORKFORCE MANAGEMENT-STILE RIPSAW OPERATOR Discharge Disposition: Home or Self Care 04/20/2024 Travel 04/20/2024 2:30 PM SOLDER CREAM MAKER Office Visit [facility] - [address] [phone] Heladio Luan III, MD Class 2 severe obesity with [...] use; Constipation, unspecified constipation type 04/12/2024 Telephone [facility] - [address] [phone] Jacob Yao, hospice liaison Issue 04/11/2024 Refill [facility] - [address] [phone] Heladio Luna III, MD MEDICATION REFILL from [...] needed for Shortness of Breath or Wheezing 9 Active CPAP Use as directed 14cm H20 Active lisinopril (PRINIVIL; ZESTRIL) 40 MG tablet Take 1 (one) tablet by mouth once daily Active amLODIPine (Norvasc) 10 MG tablet Take 1 (one) tablet by mouth once daily Active psyllium (Metamucil) CAPS capsuleIndications: Constipation, unspecified constipation type Take 1 (one) capsule by mouth 3 times daily 90 capsule 5 4 10/18/19 25 Active Additional Information Patient not taking.Reported on 06/06/2024 carvedilol (Coreg) 12.5 MG tabletIndications:B enign essential HTN Take 1 (one) tablet by mouth 2 times daily 60 tablet 5 4 Active Airsupra 90-80 MCG/ACT AERO Inhale 2 puffs by mouth every 4 hours as needed 4 Active ondansetron, disintegrating, (Zofran ODT) 4 MG tablet Take 1 (one) tablet by mouth every 8 hours as needed 4 Active traMADol (Ultram) 50 MG tablet Take 1 (one) tablet by mouth every 6 hours as needed For pain. 4 Active tretinoin (Retin-A) 0.1 % cream Apply to affected area once daily 4 Active tamsulosin (Flomax) 0.4 MG capsule Take 1 (one) capsule by mouth once daily 4 Active tirzepatide (Zepbound) 15 MG/0.5ML injectionIndication s:Class 2 severe obesity due to excess calories with serious comorbidity and body mass index (BMI) of 39.0 to 39.9 in adult (HCC),Metabolic dysfunction-associa jose c steatohepatitis (MASH) Inject 15 (fifteen) mg subcutaneously every 7 days 6 mL 2 5 Active tirzepatide (Zepbound) 15 MG/0.5ML injectionIndication s:Class 2 severe obesity due to excess calories with serious comorbidity and body mass index (BMI) of 39.0 to 39.9 in adult (HCC),Metabolic dysfunction-associa jose c steatohepatitis (MASH) Inject 15 (fifteen) mg subcutaneously every 7 days 6 mL 2 4 07/07/19 25 Discontinu ed(Reorder ) Active Problems Problem Noted Date Diagnosed Date [...] Comments Blood Pressure 132/94 06/06/2024 8:45 AM SOLDER CREAM MAKER Pulse 73 06/06/2024 8:45 AM SOLDER CREAM MAKER Temperature 36.6 C (97.8 F) 06/06/2024 8:45 AM SOLDER CREAM MAKER Respiratory Rate 18 06/11/2023 9:48 AM SOLDER CREAM MAKER Oxygen Saturation 98% 06/06/2024 8:45 AM SOLDER CREAM MAKER Inhaled Oxygen Concentration - - Weight 124.2 kg (273 lb 12.8 oz) 06/06/2024 8:45 AM SOLDER CREAM MAKER Height 185.4 cm (6' 1 ) 06/06/2024 8:45 AM SOLDER CREAM MAKER Body Mass Index 36.12 06/06/2024 8:45 AM SOLDER CREAM MAKER Plan of Treatment Upcoming Encounters Date Type Department Care Team (Late st Contact Info) Description 10/26/2024 1:30 PM CDT Office Visit [facility] - [address] [phone] Irene Barron PA-C [address] [facility] DEPT [place] [phone] 04/26/2025 1:30 PM SOLDER CREAM MAKER Office Visit [facility] - [address] [phone] Heladio Luna III, MD [address] [place] [address] [address] [phone] 06/05/2025 8:30 AM SOLDER CREAM MAKER Procedure visit [facility] - [address] [phone] 06/05/2025 9:00 AM SOLDER CREAM MAKER Office Visit [facility] - [address] [phone] Brooke Bernard, DIRECTOR WORKFORCE MANAGEMENT-STILE RIPSAW OPERATOR [address] [place] [address] [address] DIV OF GASTROENTEROLOGY [place], [place] [phone] Goals Goal Patient Goal Type Associated Problems Recent Progress Patient-Stated? Author Medication Management General On track( 024 2:03 PM SOLDER CREAM MAKER) Jude Villegas, RN Note: Expected end date: Interventions: Take all medications as prescribed Let your doctor know right away about any changes in your medications Make sure to request a refill of your medication at least one week prior to your last dose Procedures Procedure Name Priority Date/Time Associated Diagnosis Comments US ABDOMEN LIMITED Routine 06/06/2024 8: 10 AM SOLDER CREAM MAKER GRAFF (nonalcoholic steatohepatitis) COMPREHENSIVE METABOLIC PANEL Routine 11/13/2023 7:25 AM CDT Obesity, unspecified classification, unspecified obesity type, unspecified whether serious comorbidity present LIPID PROFILE Routine 11/13/2023 7:25 AM CDT Obesity, unspecified classification, unspecified obesity type, unspecified whether serious comorbidity present HEPATITIS C ANTIBODY Routine 07/22/2016 2:45 PM SOLDER CREAM MAKER from Last 3 Months or Most Recently Relevant to Health Maintenance Results * US ABDOMEN LIMITED (06/06/2024 8:10 AM SOLDER CREAM MAKER) Anatomical Region Laterality Modality Abdomen Ultrasound 06/06/2024 8:20 AM SOLDER CREAM MAKER Impressions 06/06/2024 9:31 AM SOLDER CREAM MAKER IMPRESSION: 1.Diffuse hepatic steatosis. No notable surface [...] evaluation. > Dictated by Bunny Olmos MD (college president). I, Peg Goldman MD have personally reviewed and interpreted this examination/study. > Interpreting Provider: Peg Goldman MD on 06/06/2024 9:31 AM Narrative 06/06/2024 9:31 AM SOLDER CREAM MAKER PROCEDURE: US ABDOMEN LIMITED DATE/TIME OF EXAM: [...] gas. No ascites is present. Procedure Note Pge Goldman MD - 06/06/2024 PROCEDURE: US ABDOMEN [...] evaluation. > Dictated by Bunny Olmos MD (college president). I, Peg Goldman MD have personally reviewed and interpreted this examination/study. > Interpreting Provider: Peg Goldman MD on 59:31 AM Brooke Bernard DIRECTOR WORKFORCE MANAGEMENT-STILE RIPSAW OPERATOR US ORDERABL ES * (ABNORMAL) COMPREHENSIVE METABOLIC PANEL (11/13/2023 7:25 AM CDT) Glucose 94 65 - 99 mg/dL [facility] Comment: Fasting reference interval BUN 12 7 - 25 mg/dL [facility] Creatinine 0.82 0.70 - 1.30 mg/dL [facility] eGFR by Cystatin C 104 > OR = 60 mL/min/1. 73m2 [facility] BUN/Creatinine Ratio SEE NOTE: 6 - 22 (calc) [facility] Comment: Not Reported: BUN and [...] 46 U/L [facility] Comment: Test Performed at: [facility] [place] [address] [facility] [place] [address] CHELE CANO MD Blood BLOOD SPECIMEN / Unknown 11/13/2023 7:25 AM CDT 11/13/2023 7:25 AM CDT Heladio Luna III, MD LAB - CHEMISTRY O DONNA Performing Organization Address [facility] de Phone Number [facility] [address] [place] [address] * (ABNORMAL) LIPID PROFILE (11/13/2023 7:25 AM [...] factors. LDL-C is now calculated using the Sherman-Justa calculation, which is a validated novel method providing better accuracy than the Friedewald equation in the estimation of LDL-C. Sherman SS et al. VIRGIL. 2013;310(19): 0138-5827 (http://education.Spectrum5.iRezQ/faq/XZC563) CHOL/HDLC RATIO 3.8 <5.0 (calc) [facility] Non HDL Cholesterol 109 <130 mg/dL (calc) [facility] Comment: For patients with diabetes plus 1 major ASCVD risk factor, treating to a non-HDL-C goal of <100 mg/dL (LDL-C of <70 mg/dL) is considered a therapeutic option. Test Performed at: [employer] [facility] [address] [address] [facility] [place] [address] CHELE CANO MD Blood BLOOD SPECIMEN / Unknown 11/13/2023 7:25 AM CDT 11/13/2023 7:25 AM CDT Heladio Luna III, MD LAB - CHEMISTRY O DONNA Performing Organization Address [facility] de Phone Number [facility] [address] [place] [address] * HEPATITIS C ANTIBODY (07/22/2016 2:45 PM SOLDER CREAM MAKER) Hepatitis C Antibody Non-react darling Non-reac tive [facility] Comment: Hepatitis C Antibody screen indicates no serologic evidence of past or current infection with Hepatitis C Virus. Patients with unexplained liver disease who are immunocompromised or suspected of having acute Hepatitis C infection may benefit from Nucleic Acid Test (FABY) for Hepatitis C Viral RNA to confirm Hepatitis C status. Blood specimen (specimen) BLOOD SPECIMEN / Unknown 07/22/2016 2:45 PM SOLDER CREAM MAKER 07/22/2016 2:54 PM SOLDER CREAM MAKER Arik Lipscomb MD LAB - CHEMISTRY ISHMAEL CHAMPAGNE [facility] Organization Address City/State/ZIP Co de Phone Number [facility] [address] [place], [place] [address] [phone] from Last 3 Months or Most Recently Relevant to Health Maintenance Care Teams Director Of Archives Relationship Specialty Start Date End Date Aditi Stark, DIRECTOR WORKFORCE MANAGEMENT-STILE RIPSAW OPERATOR [address] [facility], [address] [place] [address] PCP - General Nurse Practitioner 12/08/22
--- OUTSIDE RECORDS SUMMARY | 2024-07-07 14:33 | XMS_ITS | Clinical Summary ---
Author Organization [facility] [employer] Address [address] [place] [address] Care Team Providers Care Station Cashier Name Role Phone Aditi Stark HEREDITARY CANCER PROGRAM COORDINATOR-HEADER SET UP OPERATOR Primary Care Provider Source Comments [facility],non-owned Affiliates and Associated Physician Practices is amultiple site organization consisting of ambulatory clinics and hospital sitesin [place], [place], [place] and [place]. This disclosure is being madepursuant to the Care Everywhere program and may not contain all information available regarding this patient. Last updated 18.[facility] Allergies Active Allergy Reactions Criticality Noted [...] Type Department Care Team Description 07/07/2024 Refill [facility] - Internal Med [address] [place] [phone] Heladio Luna III, MD MEDICATION REFILL 06/06/2024 9:00 AM INSPECTOR FILTER TIP Office Visit [facility] - GI [address] [place] [phone] Brooke Bernard APRN-CNP Metabolic dysfunction-associated steatohepatitis (MASH) (Primary Dx); Hereditary hemochromatosis (HCC) 06/06/2024 7:18 AM INSPECTOR FILTER TIP - 06/06/2024 11:59 PM INSPECTOR FILTER TIP Hospital Encounter [facility] [address] [place] [address] Brooke Bernard APRN-CNP Discharge Disposition: Home or Self Care 06/06/2024 Travel 04/20/2024 2:30 PM INSPECTOR FILTER TIP Office Visit [facility] - GI [address] [place] [phone] Heladio Luna III, MD Class 2 severe [...] unspecified constipation type 04/20/2024 Travel 04/12/2024 Telephone [facility] - [address] [phone] Jacob Yao RN Medication Issue 04/11/2024 Refill [facility] - [address] [phone] Heladio Luna III, MD MEDICATION REFILL from [...] Comments Blood Pressure 132/94 06/06/2024 8:45 AM INSPECTOR FILTER TIP Pulse 73 06/06/2024 8:45 AM INSPECTOR FILTER TIP Temperature 36.6 C (97.8 F) 06/06/2024 8:45 AM INSPECTOR FILTER TIP Respiratory Rate 18 06/11/2023 9:48 AM INSPECTOR FILTER TIP Oxygen Saturation 98% 06/06/2024 8:45 AM INSPECTOR FILTER TIP Inhaled Oxygen Concentration - - Weight 124.2 kg (273 lb 12.8 oz) 06/06/2024 8:45 AM INSPECTOR FILTER TIP Height 185.4 cm (6' 1 ) 06/06/2024 8:45 AM INSPECTOR FILTER TIP Body Mass Index 36.12 06/06/2024 8:45 AM INSPECTOR FILTER TIP Plan of Treatment Upcoming Encounters Date Type Department Care Team (Late st Contact Info) Description 10/26/2024 1:30 PM CDT Office Visit [facility] - GI [address] [place] [phone] Irene Barron PA-C [address] [facility] DEPT [place] [phone] 04/26/2025 1:30 PM INSPECTOR FILTER TIP [facility] [address] [place] [phone] Heladio Luna III, MD [address] [place] [address] [address] [place] [phone] 06/05/2025 8:30 AM INSPECTOR FILTER TIP Procedure visit [facility] - GI [address] [place] [phone] 06/05/2025 9:00 AM INSPECTOR FILTER TIP Office Visit [facility] - GI [address] [place] [phone] Brooke Bernard, HEREDITARY CANCER PROGRAM COORDINATOR-HEADER SET UP OPERATOR [address] [place] [address] [address] DIV OF GASTROENTEROLOGY [place], [place] [phone] Health Maintenance Due Date Last Done Comments [...] Td or Tdap) 10/30/2020 10/30/2010 COVID-19 VACCINE (4 - season) 2024 03/22/2021, 06/12/2020, 05/15/2020 INFLUENZA VACCINE (#1) 2024 , 03/11/2021, 04/19/2019, Additional history exists DEPRESSION SCREENING 05/18/2024 06/04/2023, 04/01/2023, 12/26/2021 SCREENING FOR DIABETES 11/12/2026 , 11/13/2023, 06/18/2023, Additional history exists LIPID TESTING [...] Management General On track( 024 2:03 PM INSPECTOR FILTER TIP) Jude Villegas, RN Note: Expected end date: Interventions: Take all medications as prescribed Let your doctor know right away about any changes in your medications Make sure to request a refill of your medication at least one week prior to your last dose Procedures Procedure Name Priority Date/Time Associated Diagnosis Comments US ABDOMEN LIMITED Routine 06/06/2024 8: 10 AM INSPECTOR FILTER TIP GRAFF (nonalcoholic steatohepatitis) COMPREHENSIVE METABOLIC PANEL Routine 11/13/2023 7:25 AM CDT Obesity, unspecified classification, unspecified obesity type, unspecified whether serious comorbidity present LIPID PROFILE Routine 11/13/2023 7:25 AM CDT Obesity, unspecified classification, unspecified obesity type, unspecified whether serious comorbidity present HEPATITIS C ANTIBODY Routine 07/22/2016 2:45 PM INSPECTOR FILTER TIP from Last 3 Months or Most Recently Relevant to Health Maintenance Results * US ABDOMEN LIMITED (06/06/2024 8:10 AM INSPECTOR FILTER TIP) Anatomical Region Laterality Modality Abdomen Ultrasound 06/06/2024 8:20 AM INSPECTOR FILTER TIP Impressions 06/06/2024 9:31 AM INSPECTOR FILTER TIP IMPRESSION: 1.Diffuse hepatic steatosis. No notable surface [...] > Dictated by Bunny Olmos MD (president sales and marketing). I, Peg Goldman MD have personally reviewed and interpreted this examination/study. > Interpreting Provider: Peg Goldman MD on 06/06/2024 9:31 AM Narrative 06/06/2024 9:31 AM INSPECTOR FILTER TIP PROCEDURE: US ABDOMEN LIMITED DATE/TIME OF EXAM: [...] > Dictated by Bunny Olmos MD (president sales and marketing). I, Peg Goldman MD have personally reviewed and interpreted this examination/study. > Interpreting Provider: Peg Goldman MD on 59:31 AM Brooke Bernard HEREDITARY CANCER PROGRAM COORDINATOR-HEADER SET UP OPERATOR US ORDERABL ES * (ABNORMAL) COMPREHENSIVE [...] 46 U/L [facility] Comment: Test Performed at: [employer] [address] [address] [facility] [place] [address] CHELE CANO MD Blood BLOOD SPECIMEN / Unknown 11/13/2023 7:25 AM CDT 11/13/2023 7:25 AM CDT Heladio Luna III, MD LAB - CHEMISTRY O DONNA Performing Organization Address [facility] de Phone Number [facility] [address] [place] [phone] * (ABNORMAL) LIPID PROFILE (11/13/2023 7:25 AM [...] LDL-C. Sherman REA et al. VIRGIL. 2013;310(19): 3319-8609 (http://education.Statusly.[employer]/faq/LVE976) CHOL/HDLC RATIO 3.8 <5.0 (calc) [facility] Non HDL Cholesterol 109 <130 mg/dL (calc) [facility] Comment: For patients with diabetes plus 1 major ASCVD risk factor, treating to a non-HDL-C goal of <100 mg/dL (LDL-C of <70 mg/dL) is considered a therapeutic option. Test Performed at: [employer] [address] [place] [address] CHELE CANO MD Blood BLOOD SPECIMEN / Unknown 11/13/2023 7:25 AM CDT 11/13/2023 7:25 AM CDT Heladio Luna III, MD LAB - CHEMISTRY O DONNA Performing Organization Address [facility] de Phone Number [facility] [address] [place] [address] * HEPATITIS C ANTIBODY (07/22/2016 2:45 PM INSPECTOR FILTER TIP) Pathologist [facility] Hepatitis C Antibody Non-react darling Non-reac tive [facility] Comment: Hepatitis C Antibody screen indicates no serologic evidence of past or current infection with Hepatitis C Virus. Patients with unexplained liver disease who are immunocompromised or suspected of having acute Hepatitis C infection may benefit from Nucleic Acid Test (FABY) for Hepatitis C Viral RNA to confirm Hepatitis C status. Blood specimen (specimen) BLOOD SPECIMEN / Unknown 07/22/2016 2:45 PM INSPECTOR FILTER TIP 07/22/2016 2:54 PM INSPECTOR FILTER TIP Arik Lipscomb MD LAB - CHEMISTRY ISHMAEL CHAMPAGNE [facility] [address] [phone] from Last 3 Months or Most Recently Relevant to Health Maintenance Care Teams Station Cashier Relationship Specialty Start Date End Date Aditi Stark, HEREDITARY CANCER PROGRAM COORDINATOR-HEADER SET UP OPERATOR [address] [facility], [address] [place] [address] PCP - General Nurse Practitioner 12/08/22
--- OUTSIDE RECORDS SUMMARY | 2024-07-07 14:33 | XMS_ITS | Encounter Summary ---
Author Organization [facility] Address [address] [place] [address] Care Team Providers Care Track Laying Supervisor Name Role Phone Lawson Mathew MD Primary Care Provider Unavailable Shannon Carr MD Primary Care Provider Un available Aditi Stark [facility] Primary Care Provider + Encounter Details Date Type Department Care Team (Late st Contact Info) Description 10/04/2009 Abstract [facility] Conversion , Generic Conversion, Social History Tobacco Use Types Packs/Day Years Used Date Smoking Tobacco: Never Assessed Sex and Gender Information Value Date Recorded Sex Assigned at Male 06/30/2024 7:34 AM LASTING ROOM MACHINE OPERATOR Legal Sex Male 7:57 PM CDT Gender Identity Male 08/12/2021 1:26 PM CDT Sexual Orientation Straight 08/12/2021 1: 26 PM CDT documented as of this encounter Plan of Treatment Upcoming Encounters Date Type Department Care Team (Late st Contact Info) Description 10/20/2024 7:20 AM CDT Office Visit [facility] [address] [place] [address] Aditi Stark, [facility] [address] [facility], [address] [place] [address] 05/03/2025 8:00 AM LASTING ROOM MACHINE OPERATOR Appointment [facility] [address] [place] [address] Aditi Stark, [facility] [address] [facility], [address] [place] [address] documented as of this encounter Visit Diagnoses Not on filedocumented in this encounter Additional Health Concerns Infection Onset Date Last Indicated Resolved Time COVID-19 Rule Out 06/20/2024 06/20/2024 06/20/2024 12:12 PM LASTING ROOM MACHINE OPERATOR Influenza - Seasonal 06/20/2024 06/20/2024 025 12:32 AM LASTING ROOM MACHINE OPERATOR documented as of this encounter Care Teams Track Laying Supervisor Relationship Specialty Start Date End Date Lawson Mathew MD PCP - General FAMILY PRACTICE 04/27/18 05/04/18 Shannon Carr MD PCP - General INTERNAL MEDICINE 05/05/18 05/13/20 Aditi Stark, [facility] [address] [facility], [address] [place] [address] PCP - General NURSE PRACTITIONER 05/14/20 documented as of this encounter
== END 2024-07-07 14:29 | disposition home or self-care (01) ==
PROVIDERS: Visit Provider Urology
DX: N20.1 Calculus of ureter (principal)
CPT/HCPCS: 74018

== ENCOUNTER 2024-08-08 15:37 | Outpatient (CLI) | payer BC, SELFPAY ==
--- NOTE | ~2024-08-08 | XR_ITS ---
EXAMINATION: XR abdomen/kub 1V DATE: 08/08/2024 15:52 INDICATION: Right ureteral stone TECHNIQUE: A supine view of the abdomen and pelvis on 2 radiographs was obtained. COMPARISON: 07/07/2024 and 06/17/2024 FINDINGS: Unchanged phlebolith in the right hemipelvis. There is an unchanged 3 mm thin calcific density projec ting slightly to the right of the superior endplate of L5 which could represent a residual ureteral s tone. It is however also present on the study from 06/17/2024 prior to reported lithotripsy of a large r stone projecting more proximally over the transverse process of L4 which suggests is could represen t a calcification of other etiology but is rather than the disc or atherosclerotic calcification. No other suspicious calcifications in the abdomen or pelvis. Normal bowel gas pattern. IMPRESSION: 1. 3 mm thin linear calcific density projecting lateral to the superior endplate of L5, unchanged sin ce radiograph obtained prior to reported shockwave lithotripsy which could represent an unchanged frank al stone versus calcification along the margin of the disc or atherosclerotic calcification. Could co nsider renal stone CT for more definitive determination is clinically indicated. Reviewed, dictated and finalized at location B. IMPRESSION: 1. 3 mm thin linear calcific density projecting lateral to the superior endplat e of L5, unchanged since radiograph obtained prior to reported shockwave lithot ripsy which could represent an unchanged renal stone versus calcification along the margin of the disc or atherosclerotic calcification. Could consider renal stone CT for more definitive determination is clinically indicated.
--- OUTSIDE RECORDS SUMMARY | 2024-08-08 18:02 | XMS_ITS | Clinical Summary ---
Author Organization [address] Address [address] [place] [address] Care Team Providers Care Scientific Research Associate Name Role Phone Fahad Stanley MD Primary Care Provider [phone] Allergies Active Allergy Reactions Criticality Noted Date [...] 11/12/2021 Assessment & Plan (05/05/2024 3:01 PM LOSS PREVENTION GUARD): The patient continues to benefit from CPAP [...] year. Assessment & Plan (05/07/2023 3:46 PM LOSS PREVENTION GUARD): The patient continues to benefit from CPAP at 16 cm water pressure for ongoing symptoms SEVERO. His DME supplier is [employer]. He will follow up here in 1 year. Assessment & Plan (05/06/2022 3:32 PM LOSS PREVENTION GUARD): The patient continues to benefit from CPAP [...] on file Legal Sex Male 8:43 PM LOSS PREVENTION GUARD Gender Identity Not on file Sexual Orientation Not on file Obstetrics History Last Filed Vital Signs Vital Sign Reading Time Taken Comments Blood Pressure 118/70 05/05/2024 2:42 PM LOSS PREVENTION GUARD Pulse 64 05/05/2024 2:42 PM LOSS PREVENTION GUARD Temperature 36.3 C (97.4 F) 05/05/2024 2:42 PM LOSS PREVENTION GUARD Respiratory Rate 18 05/05/2024 2:42 PM LOSS PREVENTION GUARD Oxygen Saturation 97% 05/05/2024 2:42 PM LOSS PREVENTION GUARD Inhaled Oxygen Concentration - - Weight 124.3 kg (274 lb) 05/05/2024 2:42 PM LOSS PREVENTION GUARD Height 185.4 cm (6' 1 ) 05/05/2024 2:42 PM LOSS PREVENTION GUARD Body Mass Index 36.15 05/05/2024 2:42 PM LOSS PREVENTION GUARD Plan of Treatment Health Maintenance Due Date [...] , 03/11/2021, 04/19/2019, Additional history exists Insurance [facility] Care Teams Scientific Research Associate Relationship Specialty Start Date End Date Fahad Stanley MD [address] [place] [address] PCP - General 06/21/20
--- OUTSIDE RECORDS SUMMARY | 2024-08-08 18:02 | XMS_ITS | Clinical Summary ---
Author Organization [facility] Address [address] [place] [address] Care Team Providers Care Grounds And Nursery Specialist Name Role Phone Aditi Stark [facility] Primary Care Provider + Allergies Active Allergy [...] mouth daily. 90 tablet 3 4 Active lisinopril (PRINIVIL) 40 MG tabletIndications :Essential hypertension Take 1 tablet (40 mg total) by mouth daily. 90 tablet 3 4 Active traMADol (ULTRAM) 50 MG tablet Take 1 tablet (50 mg total) by mouth every 6 (six) hours as needed. FOR PAIN Active carvedilol (COREG) 12.5 MG tabletIndications :Essential hypertension TAKE 1 TABLET TWICE A DAY 180 tablet 1 5 Active benzonatate (TESSALON) 200 MG capsuleIndication s:Acute cough Take 1 capsule (200 mg total) by mouth 3 (three) times daily as needed. 30 capsule 5 07/10/19 25 Active Problems Problem Noted Date Diagnosed Date [...] Department Care Team Description 06/30/2024 7:40 AM MASTER TAX ADVISOR Office Visit [facility] [address] [place] [address] Aditi Stark, APPRENTICE PHOTOGRAPHER-BC Cough (1 week, FLU A on 06/20 ) 06/30/2024 Travel 06/20/2024 11:40 AM MASTER TAX ADVISOR Office Visit [facility] [address] [place] [address] Aditi Stark FNP-BC Diarrhea (No appetite, fatigue> Thursday ) 06/20/2024 Travel 06/17/2024 Scan [facility] Scanned, [facility] Procedure (SCAN) 06/06/2024 Scan [facility] Scanned, [facility] 05/24/[address] [facility] [address] [place] [address] Aditi Stark FNP-BC Results 05/23/2024 7:39 AM MASTER TAX ADVISOR - 05/23/2024 11:59 PM MASTER TAX ADVISOR Hospital Encounter [facility] MRI [address] [place] [address] Aditi Stark FNP-BC Discharge Disposition: Home or Self Care (Routine Discharge) 05/23/2024 Travel from Last 3 Months Immunizations Name [...] Sex Assigned at Male 06/30/2024 7:34 AM MASTER TAX ADVISOR Legal Sex Male 7:57 PM CDT Gender Identity Male 08/12/2021 1:26 PM CDT Sexual Orientation Straight 08/12/2021 1: 26 PM CDT Last Filed Vital Signs Vital Sign Reading Time Taken Comments Blood Pressure 113/76 06/30/2024 7:50 AM MASTER TAX ADVISOR Pulse 67 06/30/2024 7:50 AM MASTER TAX ADVISOR Temperature 36.4 C (97.5 F) 06/30/2024 7:39 AM MASTER TAX ADVISOR Respiratory Rate 18 06/30/2024 7:39 AM MASTER TAX ADVISOR Oxygen Saturation 97% 06/30/2024 7:39 AM MASTER TAX ADVISOR Inhaled Oxygen Concentration - - Weight 122.1 kg (269 lb 3.2 oz) 06/30/2024 7:39 AM MASTER TAX ADVISOR Height 180.3 cm (5' 11 ) 06/30/2024 7:39 AM MASTER TAX ADVISOR Body Mass Index 37.55 06/30/2024 7:39 AM MASTER TAX ADVISOR Plan of Treatment Upcoming Encounters Date Type Department Care Team (Late st Contact Info) Description 10/20/2024 7:20 AM CDT Office Visit [facility] [address] [place] [address] Aditi Stark, [facility] [address] [facility] [address] [place] [address] 05/03/2025 8:00 AM MASTER TAX ADVISOR Appointment [facility] [address] [place] [address] Aditi Stark, [facility] [address] [facility] [address] [place] [address] Health Maintenance Due Date Last Done Comments [...] Hepatitis C Completed 07/22/2016, 09/04/2009 PHQ-2 (Physician Venetie Ira) Completed 06/30/2024 Meningococcal B Vaccine Aged Out No l onger eligible based on patient's age to complete this topic Meningococcal Vaccine Aged Out No ximena ivette eligible based on patient's age to complete this topic RSV Immunizations Under 20 Months Aged Out No longer eligible based on patient's age to complete this topic Medical Devices Implanted Type Area Treasury Analyst Device Identifier Shelf Expiration Date Model / Serial / Lot Mesh Mesh Right: Groin Procedures Procedure Name Priority Date/Time Associated Diagnosis Comments CORONAVIRUS (COVID-19) INFLUENZA A & B ANTIGEN IA PANEL Routine 06/20/2024 Acute cough PROCEDURE GENERIC (SCAN ORDER) 06/17/2024 MRI ABD WWO CON Routine 05/23/2024 8:54 AM MASTER TAX ADVISOR Renal lesion XR ABD KUB Routine 05/23/2024 7:58 AM MASTER TAX ADVISOR Calculus of ureter COLONOSCOPY/EGD GENERIC (SCAN ORDER) Routine 06/17/2018 HEPATITIS C ANTIBODY Routine 09/04/2009 6:29 AM CDT from Last 3 Months or Most Recently Relevant to Health Maintenance Results * (ABNORMAL) CORONAVIRUS (COVID-19) INFLUENZA A & B ANTIGEN IA PANEL (06/20/2024) CORONAVIRUS ANTIGEN IA NEGATIVE NEGATIVE [facility] ([address]), [place] INFLUENZA A POSITIVE(A) NEGATIVE [facility] ([address]01), [place] INFLUENZA B NEGATIVE NEGATIVE [facility] ([address]), [place] Internal Control: VALID VALID [facility] ([address]), [place] NASAL STRUCTURE / Unknown 06/20/2024 Aditi Perkins Mi APPRENTICE PHOTOGRAPHER-BC MICROBIOLOGY - GENERAL O RDERABLES Final Result [facility] ([address]20), [place] [address] [facility] [address] [place] [address], [place] [phone] * PROCEDURE GENERIC (SCAN ORDER) (06/17/2024) 06/17/2024 [facility] Scanned SCANNING Final Resu lt * MRI ABD WWO CON (05/23/2024 8:54 AM MASTER TAX ADVISOR) Anatomical Region Laterality Modality Abdomen Magnetic Resonan ce 05/23/2024 2:30 PM MASTER TAX ADVISOR Impressions 05/23/2024 2:49 PM MASTER TAX ADVISOR IMPRESSION:===== 1. Small bilateral renal cysts without suspicious features. No follow-up required. 2. Persistent right hydronephrosis with obstructing calculus of the right proximal ureter. 3. Mild hepatomegaly with diffuse fatty steatosis. 4. Multiple hepatic cysts. 5. Small hiatal hernia. 6. Diverticulosis of the colon. Referred By: ADITI STARK Interpreted By: Nahun Buck MD, 05/23/2024 2:30 PM Narrative 05/23/2024 2:49 PM MASTER TAX ADVISOR [facility] [address] [place] [address] EXAMINATION: MRI abdomen with and without contrast [...] Procedure Note Nahun Buck MD - 05/23/2024 [facility] [address] [place] [address] EXAMINATION: MRI abdomen with and without contrast [...] MD, 05/23/2024 2:30 PM us Aditi Maddie Mi APPRENTICE PHOTOGRAPHER-BC MRI Final Re sult * XR ABD KUB (05/23/2024 7:58 AM MASTER TAX ADVISOR) Anatomical Region Laterality Modality Abdomen Radiographic Almita ging 05/23/2024 2:16 PM MASTER TAX ADVISOR Impressions 05/23/2024 2:22 PM MASTER TAX ADVISOR Impression: Redemonstrated right UPJ calculus in stable position allowing for the different modalities. Referred By: ADITI STARK Interpreted By: Quincy Valverde MD, 05/23/2024 2:16 PM Narrative 05/23/2024 2:22 PM [place] [address] Examination: Single view abdomen Exam time: 0737 [...] Procedure Note Quincy Valverde MD - 05/23/2024 [place] [address] Examination: Single view abdomen Exam time: 0737 [...] Patiño NP GENERAL IMAGING Final Result * COLONOSCOPY/EGD (06/17/2018) us Documents Scanned SCANNING [...] Most Recently Relevant to Health Maintenance [place] [address] [address] Care Teams Grounds And Nursery Specialist Relationship Specialty Start Date End Date Aditi Stark, [facility] [address] [facility], [address] [place] [address] PCP - General NURSE PRACTITIONER 05/14/20
--- OUTSIDE RECORDS SUMMARY | 2024-08-08 18:02 | XMS_ITS | Referral Summary ---
Author Organization [address] Address [address] [place] [address] Care Team Providers Care Kindergarten Teacher Name Role Phone Fahad Stanley MD Primary Care Provider [phone] Allergies Active Allergy Reactions Criticality Noted Date [...] 11/12/2021 Assessment & Plan (05/05/2024 3:01 PM GROUNDS AND NURSERY SPECIALIST): The patient continues to benefit from [...] year. Assessment & Plan (05/07/2023 3:46 PM GROUNDS AND NURSERY SPECIALIST): The patient continues to benefit from CPAP at 16 cm water pressure for ongoing symptoms SEVERO. His DME supplier is [employer]. He will follow up here in 1 year. Assessment & Plan (05/06/2022 3:32 PM GROUNDS AND NURSERY SPECIALIST): The patient continues to benefit from [...] on file Legal Sex Male 8:43 PM GROUNDS AND NURSERY SPECIALIST Gender Identity Not on file Sexual Orientation Not on file Last Filed Vital Signs Vital Sign Reading Time Taken Comments Blood Pressure 118/70 05/05/2024 2:42 PM GROUNDS AND NURSERY SPECIALIST Pulse 64 05/05/2024 2:42 PM GROUNDS AND NURSERY SPECIALIST Temperature 36.3 C (97.4 F) 05/05/2024 2:42 PM GROUNDS AND NURSERY SPECIALIST Respiratory Rate 18 05/05/2024 2:42 PM GROUNDS AND NURSERY SPECIALIST Oxygen Saturation 97% 05/05/2024 2:42 PM GROUNDS AND NURSERY SPECIALIST Inhaled Oxygen Concentration - - Weight 124.3 kg (274 lb) 05/05/2024 2:42 PM GROUNDS AND NURSERY SPECIALIST Height 185.4 cm (6' 1 ) 05/05/2024 2:42 PM GROUNDS AND NURSERY SPECIALIST Body Mass Index 36.15 05/05/2024 2:42 PM GROUNDS AND NURSERY SPECIALIST Plan of Treatment Not on file Insurance [employer] OOS Care Teams Kindergarten Teacher Relationship Specialty Start Date End Date Fahad Stanley MD [address] [place] [address] PCP - General 06/21/20
--- OUTSIDE RECORDS SUMMARY | 2024-08-08 18:02 | XMS_ITS | Encounter Summary ---
Author Organization [facility] Address [address] [place] [address] Care Team Providers Care Motor Vehicle Examiner Name Role Phone Lawson Mathew MD Primary Care Provider Unavailable Shannon Carr MD Primary Care Provider Un available Aditi Stark [facility] Primary Care Provider + Encounter Details Date Type Department Care Team (Late st Contact Info) Description 10/11/2009 Abstract [facility] Conversion , Generic Conversion, Social History Tobacco Use Types Packs/Day Years Used Date Smoking Tobacco: Never Assessed Sex and Gender Information Value Date Recorded Sex Assigned at Male 06/30/2024 7:34 AM TUTOR COORDINATOR Legal Sex Male 7:57 PM CDT Gender Identity Male 08/12/2021 1:26 PM CDT Sexual Orientation Straight 08/12/2021 1: 26 PM CDT documented as of this encounter Plan of Treatment Upcoming Encounters Date Type Department Care Team (Late st Contact Info) Description 10/20/2024 7:20 AM CDT Office Visit [facility] [address] [place] [address] Aditi Stark, [facility] [address] [facility], [address] [place] [address] 05/03/2025 8:00 AM TUTOR COORDINATOR Appointment [facility] [address] [place] [address] Aditi Stark, [facility] [address] [facility], [address] [place] [address] documented as of this encounter Visit Diagnoses Not on filedocumented in this encounter Additional Health Concerns Infection Onset Date Last Indicated Resolved Time COVID-19 Rule Out 06/20/2024 06/20/2024 06/20/2024 12:12 PM TUTOR COORDINATOR Influenza - Seasonal 06/20/2024 06/20/2024 025 12:32 AM TUTOR COORDINATOR documented as of this encounter Care Teams Motor Vehicle Examiner Relationship Specialty Start Date End Date Lawson Mathew MD PCP - General FAMILY PRACTICE 04/27/18 05/04/18 Shannon Carr MD PCP - General INTERNAL MEDICINE 05/05/18 05/13/20 Aditi Stark, [facility] [address] [facility], [address] [place] [address] PCP - General NURSE PRACTITIONER 05/14/20 documented as of this encounter
--- OUTSIDE RECORDS SUMMARY | 2024-08-08 18:02 | XMS_ITS | Clinical Summary ---
Author Organization [facility] Address [address] [place] [address] Care Team Providers Care Pointer Machine Operator Name Role Phone Unavailable Primary [...] 06/10/2012 Zoster Immunization (1 of 2) 2018 Influenza Immunization (#1) 01/17/202402/16, 04/19/2019, 03/23/2001 SARS-COV-2 Immunization (2023- season) 2024 03/22/2021, 06/12/2020, 05/15/2020 Respiratory Syncytial [...]
--- OUTSIDE RECORDS SUMMARY | 2024-08-08 18:02 | XMS_ITS | Encounter Summary ---
Author Organization [facility] Address [address] [place] [address] Care Team Providers Care Caving Guide Name Role Phone Lawson Mathew MD Primary Care Provider Unavailable Shannon Carr MD Primary Care Provider Un available Aditi Stark [facility] Primary Care Provider + Encounter Details Date Type Department Care Team (Late st Contact Info) Description 09/26/2009 Abstract [facility] Conversion , Generic Conversion, Social History Tobacco Use Types Packs/Day Years Used Date Smoking Tobacco: Never Assessed Sex and Gender Information Value Date Recorded Sex Assigned at Male 06/30/2024 7:34 AM COLLIERY CLERK Legal Sex Male 7:57 PM CDT Gender Identity Male 08/12/2021 1:26 PM CDT Sexual Orientation Straight 08/12/2021 1: 26 PM CDT documented as of this encounter Plan of Treatment Upcoming Encounters Date Type Department Care Team (Late st Contact Info) Description 10/20/2024 7:20 AM CDT Office Visit [facility] [address] [place] [address] Aditi Stark, [facility] [address] [facility], [address] [place] [address] 05/03/2025 8:00 AM COLLIERY CLERK Appointment [facility] [address] [place] [address] Aditi Stark, [facility] [address] [facility], [address] [place] [address] documented as of this encounter Visit Diagnoses Not on filedocumented in this encounter Additional Health Concerns Infection Onset Date Last Indicated Resolved Time COVID-19 Rule Out 06/20/2024 06/20/2024 06/20/2024 12:12 PM COLLIERY CLERK Influenza - Seasonal 06/20/2024 06/20/2024 025 12:32 AM COLLIERY CLERK documented as of this encounter Care Teams Caving Guide Relationship Specialty Start Date End Date Lawson Mathew MD PCP - General FAMILY PRACTICE 04/27/18 05/04/18 Shannon Carr MD PCP - General INTERNAL MEDICINE 05/05/18 05/13/20 Aditi Stark, [facility] [address] [facility], [address] [place] [address] PCP - General NURSE PRACTITIONER 05/14/20 documented as of this encounter
--- OUTSIDE RECORDS SUMMARY | 2024-08-08 18:02 | XMS_ITS | Encounter Summary ---
Author Organization [facility] Address [address] [place] [address] Care Team Providers Care Barrel Dedenting Machine Operator Name Role Phone Aditi Stark [facility] Primary Care Provider + Encounter Details Date Type Department Care Team (Late Contact Info) Description 01/10/[address] [place] [address] [address] Mychart, [facility] Provider Ozempic Social History Tobacco Use [...] Sex Assigned at Male 06/30/2024 7:34 AM SUPERVISOR BLAST FURNACE Legal Sex Male 7:57 PM CDT Gender [...] AM CDT Office Visit [facility] [address] [place] [address] Aditi Stark, [facility] [address], [address] [place] [address] 05/03/2025 8:00 AM SUPERVISOR BLAST FURNACE Appointment [facility] [address] [place] [address] Aditi Stark, [facility] [address] [facility], [address] [place] [address] documented as of this encounter Visit Diagnoses Not on filedocumented in this encounter Additional Health Concerns Infection Onset Date Last Indicated Resolved Time COVID-19 Rule Out 06/20/2024 06/20/2024 06/20/2024 12:12 PM SUPERVISOR BLAST FURNACE Influenza - Seasonal 06/20/2024 06/20/2024 025 12:32 AM SUPERVISOR BLAST FURNACE Assessment Noted Time PHQ-9 Depression Total Score: 0 08/14/19 22 3:56 PM CDT documented as of this encounter Care Teams Barrel Dedenting Machine Operator Relationship Specialty Start Date End Date Aditi Stark, [facility] [address], [address] [place] [address] PCP - General NURSE PRACTITIONER 05/14/20 documented as of this encounter
--- OUTSIDE RECORDS SUMMARY | 2024-08-08 18:02 | XMS_ITS | Encounter Summary ---
Author Organization [facility] Address [address] [place] [address] Care Team Providers Care Heat Treat Technician Name Role Phone Lawson Mathew MD Primary Care Provider Unavailable Shannon Carr MD Primary Care Provider Un available Aditi Stark [facility] Primary Care Provider + Encounter Details Date Type Department Care Team (Late st Contact Info) Description 10/04/2009 Abstract [facility] Conversion , Generic Conversion, Social History Tobacco Use Types Packs/Day Years Used Date Smoking Tobacco: Never Assessed Sex and Gender Information Value Date Recorded Sex Assigned at Male 06/30/2024 7:34 AM REGIONAL ENGINEER Legal Sex Male 7:57 PM CDT Gender Identity Male 08/12/2021 1:26 PM CDT Sexual Orientation Straight 08/12/2021 1: 26 PM CDT documented as of this encounter Plan of Treatment Upcoming Encounters Date Type Department Care Team (Late st Contact Info) Description 10/20/2024 7:20 AM CDT Office Visit [facility] [address] [place] [address] Aditi Stark, [facility] [address] [facility], [address] [place] [address] 05/03/2025 8:00 AM REGIONAL ENGINEER Appointment [facility] [address] [place] [address] Aditi Stark, [facility] [address] [facility], [address] [place] [address] documented as of this encounter Visit Diagnoses Not on filedocumented in this encounter Additional Health Concerns Infection Onset Date Last Indicated Resolved Time COVID-19 Rule Out 06/20/2024 06/20/2024 06/20/2024 12:12 PM REGIONAL ENGINEER Influenza - Seasonal 06/20/2024 06/20/2024 025 12:32 AM REGIONAL ENGINEER documented as of this encounter Care Teams Heat Treat Technician Relationship Specialty Start Date End Date Lawson Mathew MD PCP - General FAMILY PRACTICE 04/27/18 05/04/18 Shannon Carr MD PCP - General INTERNAL MEDICINE 05/05/18 05/13/20 Aditi Stark, [facility] [address] [facility], [address] [place] [address] PCP - General NURSE PRACTITIONER 05/14/20 documented as of this encounter
--- OUTSIDE RECORDS SUMMARY | 2024-08-08 18:02 | XMS_ITS | Encounter Summary ---
Author Organization [facility] Address [facility] [facility] [place] [address] Care Team Providers Care Planning Director Name Role Phone Aditi Stark WAREHOUSE HAND-FAMILY CONSUMER SCIENCE TEACHER Primary Care Provider Reason for Visit * Reason Onset Date Comments MEDICATION REFILL 02/11/2024 Encounter Details Date Type Department Care Team (Late st Contact Info) Description 02/11/2024 Refill [facility] - [address], [place] [address] Heladio Luna III, MD [address] [place] [phone] MEDICATION REFILL Social History Tobacco Use [...] 10/26/2024 1:30 PM CDT Office Visit [facility] - [place] [address] [place] [phone] Irene Barron PA-C [address] [facility] [place] [phone] 04/26/2025 1:30 PM FINE JEWELRY SALES ASSOCIATE Office Visit [facility] - [address] [phone] Heladio Luna III, MD [address] [place] [address] [address] [phone] 06/05/2025 8:30 AM FINE JEWELRY SALES ASSOCIATE Procedure visit [facility] - [address] [phone] 06/05/2025 9:00 AM FINE JEWELRY SALES ASSOCIATE Office Visit [facility] - [address] [phone] Brooke Bernard, WAREHOUSE HAND-FAMILY CONSUMER SCIENCE TEACHER [address] [place] [address] [address] DIV OF GASTROENTEROLOGY [place], [place] [phone] documented as of this encounter Goals Goal Patient Goal Type Associated Problems Recent Progress Patient-Stated? Author Medication Management General On track( 024 2:03 PM FINE JEWELRY SALES ASSOCIATE) Jude Villegas, RN Note: Expected end date: Interventions: Take all medications as prescribed Let your doctor know right away about any changes in your medications Make sure to request a refill of your medication at least one week prior to your last dose documented as of this encounter Visit Diagnoses Not on filedocumented in this encounter Care Teams Planning Director Relationship Specialty Start Date End Date Aditi Stark, WAREHOUSE HAND-FAMILY CONSUMER SCIENCE TEACHER [address] [facility], [address] [place] [address] PCP - General Nurse Practitioner 12/08/22 documented as of this encounter
--- OUTSIDE RECORDS SUMMARY | 2024-08-08 18:02 | XMS_ITS | Encounter Summary ---
Author Organization [facility] - [facility] Address [address] [place] [address] Care Team Providers Care Student Ministries Director Name Role Phone Lawson Mathew MD Primary Care Provider Unavailable Shannon Carr MD Primary Care Provider Un available Aditi Stark [facility] Primary Care Provider + Encounter Details Date Type Department Care Team (Late st Contact Info) Description 06/27/2010 Abstract [facility] Conversion Whit Zamarripa, MAGNO [address] [place] [address] Social History Tobacco Use Types Packs/Day Years Used Date Smoking Tobacco: Never Assessed Sex and Gender Information Value Date Recorded Sex Assigned at Male 06/30/2024 7:34 AM FIXED INTEREST DEALER Legal Sex Male 7:57 PM CDT Gender Identity Male 08/12/2021 1:26 PM CDT Sexual Orientation Straight 08/12/2021 1: 26 PM CDT documented as of this encounter Miscellaneous Notes * Letter - Whit Zamarripa NP - 06/27/2010 12:00 AM CST Patient Name: YESI CHAVEZ : 1970 .0 Date: 06/27/2010 Spoke to pt on the phone 06/26/2010 @ 8679. Pt stated he is feeling better, but [...] BP check. Dictated By: Whit Zamarripa CNP D INTEREST DEALER documented in this encounter Plan of Treatment Upcoming Encounters Date Type Department Care Team (Late st Contact Info) Description 10/20/2024 7:20 AM CDT Office Visit [facility] [address] [place] [address] Aditi Stark [facility] [address], [address] [place] [address] 05/03/2025 8:00 AM FIXED INTEREST DEALER Appointment [facility] [address] [facility] [place] [address] Aditi Stark [facility] [address], [address] [place], [place] [phone] documented as of this encounter Visit Diagnoses Not on filedocumented in this encounter Additional Health Concerns Infection Onset Date Last Indicated Resolved Time COVID-19 Rule Out 06/20/2024 06/20/2024 06/20/2024 12:12 PM FIXED INTEREST DEALER Influenza - Seasonal 06/20/2024 06/20/2024 025 12:32 AM FIXED INTEREST DEALER documented as of this encounter Care Teams Student Ministries Director Relationship Specialty Start Date End Date Lawson Mathew MD PCP - General FAMILY PRACTICE 04/27/18 05/04/18 Shannon Carr MD PCP - General INTERNAL MEDICINE 05/05/18 05/13/20 Aditi Stark [facility] [address] [address] [place] [address] PCP - General NURSE PRACTITIONER 05/14/20 documented as of this encounter
--- OUTSIDE RECORDS SUMMARY | 2024-08-08 18:02 | XMS_ITS | Encounter Summary ---
Author Organization [facility] Address [address] [place] [address] Care Team Providers Care Hvac Sales Engineer Name Role Phone Aditi Stark [facility] Primary Care Provider + Encounter Details Date Type Department Care Team (Late Contact Info) Description 11/12/2022 MyChart Message Enc [facility] - [facility] [address] [place] [address] [employer], [facility] Provider Air Quality Message Social History [...] Sex Assigned at Male 06/30/2024 7:34 AM FARM SERVICE CONSULTANT Legal Sex Male 7:57 PM CDT Gender Identity Male 08/12/2021 1:26 PM CDT Sexual Orientation Straight 08/12/2021 1: 26 PM CDT documented as of this encounter Plan of Treatment Upcoming Encounters Date Type Department Care Team (Late Contact Info) Description 10/20/2024 7:20 AM CDT Office Visit [address] [phone] Aditi Stark, [facility] [address] [place] [address], [address] [place] [address] 05/03/2025 8:00 AM FARM SERVICE CONSULTANT [facility]oint[facility] [address] [place] [address] Aditi Stark, [facility]- [address] [facility], [address] [place] [address] documented as of this encounter Visit Diagnoses Not on filedocumented in this encounter Additional Health Concerns Infection Onset Date Last Indicated Resolved Time COVID-19 Rule Out 06/20/2024 06/20/2024 06/20/2024 12:12 PM FARM SERVICE CONSULTANT Influenza - Seasonal 06/20/2024 06/20/2024 025 12:32 AM FARM SERVICE CONSULTANT Assessment Noted Time PHQ-9 Depression Total Score: 0 08/14/19 22 3:56 PM CDT documented as of this encounter Care Teams Hvac Sales Engineer Relationship Specialty Start Date End Date Aditi Stark, [facility]- [address], [address] [place] [address] PCP - General NURSE PRACTITIONER 05/14/20 documented as of this encounter
--- OUTSIDE RECORDS SUMMARY | 2024-08-08 18:02 | XMS_ITS | Encounter Summary ---
Author Organization [facility] Address [facility] [place] [address] Care Team Providers Care Health Care Legal Assistant Name Role Phone Aditi Stark PHYSICIST CRYOGENICS-HYDRANT SETTER Primary Care Provider Reason for Visit * Reason Onset Date Comments MEDICATION REFILL 02/29/2024 Encounter Details Date Type Department Care Team (Late st Contact Info) Description 02/29/2024 Refill [facility] - [address], [place] [phone] Heladio Luna III, MD [address] [place] [phone] MEDICATION REFILL Social History Tobacco Use Types [...] Description 10/26/2024 1:30 PM CDT Office Visit [facility] - GI [address] [place] [phone] Irene Barron PA-C [address] [facility] [place]PT [place] [phone] 04/26/2025 1:30 PM SHUTTLE PREPARATION SUPERVISOR Office Visit [facility] - [address] [phone] Heladio Luna III, MD [address] [place] [address] [address] [phone] 06/05/2025 8:30 AM SHUTTLE PREPARATION SUPERVISOR Procedure visit [facility] - [address] [phone] 06/05/2025 9:00 AM SHUTTLE PREPARATION SUPERVISOR Office Visit [facility] - [address] [phone] Brooke Bernard, PHYSICIST CRYOGENICS-HYDRANT SETTER [address] [place] [address] [address] DIV OF GASTROENTEROLOGY [place], [place] [phone] documented as of this encounter Goals Goal Patient Goal Type Associated Problems Recent Progress Patient-Stated? Author Medication Management General On track( 024 2:03 PM SHUTTLE PREPARATION SUPERVISOR) Jude Villegas, RN Note: Expected end date: Interventions: Take all medications as prescribed Let your doctor know right away about any changes in your medications Make sure to request a refill of your medication at least one week prior to your last dose documented as of this encounter Visit Diagnoses Not on filedocumented in this encounter Care Teams Health Care Legal Assistant Relationship Specialty Start Date End Date Aditi Stark, PHYSICIST CRYOGENICS-HYDRANT SETTER [address] [facility], [address] [place] [address] PCP - General Nurse Practitioner 12/08/22 documented as of this encounter
--- OUTSIDE RECORDS SUMMARY | 2024-08-08 18:02 | XMS_ITS | Clinical Summary ---
Author Organization [facility] Address [address] [facility] [place] [address] Care Team Providers Care Marine Electrician Helper Name Role Phone Aditi Stark BUILDING MAINTENANCE REPAIRER-BUSBOY Primary Care Provider Source Comments [facility],non-owned Affiliates and Associated Physician Practices is amultiple site organization consisting of ambulatory clinics and hospital sitesin [place], [place], [place] and [place]. This disclosure is being madepursuant to the Care Everywhere program and may not contain all information available regarding this patient. Last updated 18.[facility] Allergies Active Allergy Reactions Criticality Noted Date [...] mouth once daily Active psyllium (Metamucil) CAPS capsuleIndications:C onstipation, unspecified [...] capsule by mouth once daily 05/03/2024 Active tirzepatide (Zepbound) 15 MG/0.5ML injectionIndications :Class 2 severe obesity due to excess calories with serious comorbidity and body mass index (BMI) of 39.0 to 39.9 in adult (HCC),Metabolic dysfunction-associat ed steatohepatitis (MASH) Inject 15 (fifteen) mg subcutaneously every 7 days 6 mL 2 07/07/2024 Active Active Problems Problem Noted Date Diagnosed [...] Type Department Care Team Description 07/07/2024 Refill [facility] - Internal Med [address] [facility], [place] [address] Heladio Luna III, MD MEDICATION REFILL 06/06/2024 9:00 AM ARTIFICIAL BREEDING DISTRIBUTOR Office Visit [facility] - GI [address] [facility], [place] [address] Brooke Bernard APRN-CNP Metabolic dysfunction-associated steatohepatitis (MASH) (Primary Dx); Hereditary hemochromatosis 06/06/2024 7:18 AM ARTIFICIAL BREEDING DISTRIBUTOR - 06/06/2024 11:59 PM ARTIFICIAL BREEDING DISTRIBUTOR Hospital Encounter [facility] [address] [place] [address] Brooke Bernard APRN-CNP Discharge Disposition: Home or Self Care 06/06/2024 Travel from Last 3 Months Immunizations Name [...] Comments Blood Pressure 132/94 06/06/2024 8:45 AM ARTIFICIAL BREEDING DISTRIBUTOR Pulse 73 06/06/2024 8:45 AM ARTIFICIAL BREEDING DISTRIBUTOR Temperature 36.6 C (97.8 F) 06/06/2024 8:45 AM ARTIFICIAL BREEDING DISTRIBUTOR Respiratory Rate 18 06/11/2023 9:48 AM ARTIFICIAL BREEDING DISTRIBUTOR Oxygen Saturation 98% 06/06/2024 8:45 AM ARTIFICIAL BREEDING DISTRIBUTOR Inhaled Oxygen Concentration - - Weight 124.2 kg (273 lb 12.8 oz) 06/06/2024 8:45 AM ARTIFICIAL BREEDING DISTRIBUTOR Height 185.4 cm (6' 1 ) 06/06/2024 8:45 AM ARTIFICIAL BREEDING DISTRIBUTOR Body Mass Index 36.12 06/06/2024 8:45 AM ARTIFICIAL BREEDING DISTRIBUTOR Plan of Treatment Upcoming Encounters Date Type Department Care Team (Late st Contact Info) Description 10/26/2024 1:30 PM CDT Office Visit [facility] - [address] [phone] Irene Barron PA-C [address] [facility] [place] [phone] 04/26/2025 1:30 PM ARTIFICIAL BREEDING DISTRIBUTOR Office Visit [facility] - [address] [phone] Heladio Luna III, MD [address] [place] [address] [place] [phone] 06/05/2025 8:30 AM ARTIFICIAL BREEDING DISTRIBUTOR Procedure visit [facility] - [address] [phone] 06/05/2025 9:00 AM ARTIFICIAL BREEDING DISTRIBUTOR Office Visit [facility] - [address] [phone] Brooke Bernard, BUILDING MAINTENANCE REPAIRER-BUSBOY [address] [place] [address] [address] [place] [address] Health Maintenance Due Date Last Done Comments [...] or Tdap) 10/30/2020 10/30/2010 COVID-19 VACCINE ( - season) 2024 03/22/2021, 06/12/2020, 05/15/2020 INFLUENZA VACCINE (#1) 2024 , 03/11/2021, 04/19/2019, Additional history exists DEPRESSION SCREENING 05/18/2024 06/04/2023, 04/01/2023, 12/26/2021 SCREENING FOR DIABETES 11/12/2026 , 11/13/2023, 06/18/2023, Additional history exists LIPID TESTING 11/12/2028 11/13/2023, 10/2023, 12/28/2021, Additional history exists HEPATITIS C SCREENING Completed 07/22/2016 , 09/04/2009, 09/04/2009 HIB VACCINE Aged Out No longer eligi ble based on patient's age to complete this topic HPV VACCINE Aged Out No longer eligi ble based on patient's age to complete this topic MENINGOCOCCAL (Group B) VACCINE SHARED DECISION-MAKING Aged Out No longer eligible based on patient's age to complete this topic MENINGOCOCCAL GROUPS A/C/Y/W VACCINE Aged Out No longer eligible based on patient's age to complete this topic Goals Goal Patient Goal Type Associated Problems Recent Progress Patient-Stated? Author Medication Management General On track( 024 2:03 PM ARTIFICIAL BREEDING DISTRIBUTOR) Jude Villegas, RN Note: Expected end date: Interventions: Take all medications as prescribed Let your doctor know right away about any changes in your medications Make sure to request a refill of your medication at least one week prior to your last dose Procedures Procedure Name Priority Date/Time Associated Diagnosis Comments US ABDOMEN LIMITED Routine 06/06/2024 8: 10 AM ARTIFICIAL BREEDING DISTRIBUTOR GRAFF (nonalcoholic steatohepatitis) COMPREHENSIVE METABOLIC PANEL Routine 11/13/2023 7:25 AM CDT Obesity, unspecified classification, unspecified obesity type, unspecified whether serious comorbidity present LIPID PROFILE Routine 11/13/2023 7:25 AM CDT Obesity, unspecified classification, unspecified obesity type, unspecified whether serious comorbidity present HEPATITIS C ANTIBODY Routine 07/22/2016 2:45 PM ARTIFICIAL BREEDING DISTRIBUTOR from Last 3 Months or Most Recently Relevant to Health Maintenance Results * US ABDOMEN LIMITED (06/06/2024 8:10 AM ARTIFICIAL BREEDING DISTRIBUTOR) Anatomical Region Laterality Modality Abdomen Ultrasound 06/06/2024 8:20 AM ARTIFICIAL BREEDING DISTRIBUTOR Impressions 06/06/2024 9:31 AM ARTIFICIAL BREEDING DISTRIBUTOR IMPRESSION: 1.Diffuse hepatic steatosis. No notable surface [...] Dictated by Bunny Olmos MD (vice president quality assurance). I, Peg Goldman MD have personally reviewed and interpreted this examination/study. > Interpreting Provider: Peg Goldman MD on 06/06/2024 9:31 AM Narrative 06/06/2024 9:31 AM ARTIFICIAL BREEDING DISTRIBUTOR PROCEDURE: US ABDOMEN LIMITED DATE/TIME OF EXAM: [...] Dictated by Bunny Olmos MD (vice president quality assurance). I, Peg Goldman MD have personally reviewed and interpreted this examination/study. > Interpreting Provider: Peg Goldman MD on 59:31 AM Brooke Bernard BUILDING MAINTENANCE REPAIRER-BUSBOY US ORDERABL ES * (ABNORMAL) COMPREHENSIVE METABOLIC [...] 46 U/L [facility] Comment: Test Performed at: [facility] [address] [place] [address] CHELE CANO MD Blood BLOOD SPECIMEN / Unknown 11/13/2023 7:25 AM CDT 11/13/2023 7:25 AM CDT Heladio Luna III, MD LAB - CHEMISTRY O RDERABLES [facility] [address] [place] [address] * (ABNORMAL) LIPID PROFILE (11/13/2023 7:25 AM [...] LDL-C. Sherman SS et al. VIRGIL. 2013;310(19): 1427-2853 (http://education.[employer]aki.[employer]/faq/DMF781) CHOL/HDLC RATIO 3.8 <5.0 (calc) [facility] Non HDL Cholesterol 109 <130 mg/dL (calc) [facility] Comment: For patients with diabetes plus 1 major ASCVD risk factor, treating to a non-HDL-C goal of <100 mg/dL (LDL-C of <70 mg/dL) is considered a therapeutic option. Test Performed at: [facility] [address] [facility] [place] [address] CHELE CANO MD Blood BLOOD SPECIMEN / Unknown 11/13/2023 7:25 AM CDT 11/13/2023 7:25 AM CDT Heladio Luna III, MD LAB - CHEMISTRY O RDERAMICHELLE [facility] [address] [place] [address] * HEPATITIS C ANTIBODY (07/22/2016 2:45 PM ARTIFICIAL BREEDING DISTRIBUTOR) Hepatitis C Antibody Non-react darling Non-reac tive [facility] Comment: Hepatitis C Antibody screen indicates no serologic evidence of past or current infection with Hepatitis C Virus. Patients with unexplained liver disease who are immunocompromised or suspected of having acute Hepatitis C infection may benefit from Nucleic Acid Test (FABY) for Hepatitis C Viral RNA to confirm Hepatitis C status. Blood specimen (specimen) BLOOD SPECIMEN / Unknown 07/22/2016 2:45 PM ARTIFICIAL BREEDING DISTRIBUTOR 07/22/2016 2:54 PM ARTIFICIAL BREEDING DISTRIBUTOR Arik Lipscomb MD LAB - CHEMISTRY [place] [facility] [address] [place] [address] from Last 3 Months or Most Recently Relevant to Health Maintenance Care Teams Marine Electrician Helper Relationship Specialty Start Date End Date Aditi Stark, BUILDING MAINTENANCE REPAIRER-BUSBOY [address] [facility], [address] [place] [phone] PCP - General Nurse Practitioner 12/08/22
== END 2024-08-08 15:38 | disposition home or self-care (01) ==
PROVIDERS: Visit Provider Urology
DX: N20.1 Calculus of ureter (principal)
CPT/HCPCS: 74018